=== PATIENT | male | born 1950 | race Caucasian/White ===

== ENCOUNTER 2020-02-22 13:26 | Emergency (ER) | payer MEDICARE, SELFPAY ==
[2020-02-22 13:39] VITALS: BP 143/83; PULSE 65; RESP 18; TEMP 36.9; O2SAT 95; BMI 37.5
--- NOTE | 2020-02-22 13:57 | XRR_ITS ---
PROCEDURE INFORMATION: Exam: XR Left Forearm Exam date and time: 02/22/2020 2:21 PM Age: 69 years old Clinical indication: Injury or trauma and screening exam; Injury history: Laceration to elbow with saw; Initial encounter; Arm, lower; Left; Possible fb; Injury date: 02/22/20; Injury details: Laceration fro saw TECHNIQUE: Imaging protocol: XR Left forearm. Views: 2 views. COMPARISON: CR Forearm LEFT [id number] 05/17/2015 8:25 AM FINDINGS: Bones/joints: Unremarkable negative for acute abnormality Soft tissues: There is large soft tissue laceration involving the proximal forearm XR/XR forearm LT 2V [id number] IMPRESSION: No acute bone abnormality. Is large soft tissue laceration proximal forearm
--- NOTE | 2020-02-22 14:13 | W.ED.WOUNDLC ---
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 Left a large gash was actively bleeding when I came in the room his last tetanus shot was about 2 years ago. Pressure bandage applied with 4 x 4's and Ori wrap to stop the bleeding. Onset (ago): minute(s) Extremity Location: Left: forearm Place: home Patient tetanus UTD: Yes Context: accidental Associated symptoms: Reports no associated symptoms; Denies chills, fever(s), nausea or vomiting Treatments prior to arrival: bandage Review of Systems Const: Denies: fever(s), chills, body aches, change in appetite, fatigue or malaise ENMT: Denies: throat pain, ear or mastoid pain, nasal discharge or nasal congestion Card: Denies: chest pain, edema, dyspnea on exertion or orthopnea Resp: Denies: dyspnea, productive cough or non-productive cough GI: Denies: abdominal pain, nausea, vomiting, hematemesis, coffee ground emesis, diarrhea, constipation, bloating, hematochezia or melena : Denies: flank pain, dysuria, urinary frequency or urinary urgency Skin/Breast: Denies: rash or pruritus PFS ED PFSH: Medical History History of CVA (cerebrovascular accident) Hyperlipidemia Hypertension Surgical History No history of previous surgery Physical Exam Const: COMMON NORMALS: average body habitus, patient oriented x3 and alert GENERAL APPEARANCE: cooperative, comfortable, well kempt and well developed NUTRITIONAL APPEARANCE: obese ORIENTATION/CONSCIOUSNESS: Yes awake, Yes oriented to person and Yes oriented to place HENMT: COMMON NORMALS: normocephalic and atraumatic HEAD & SCALP: normocephalic and atraumatic Eye: COMMON NORMALS: Equal, round and reactive pupils present, EOMs intact bilaterally, conjunctivae normal and no scleral icterus CONJUNCTIVA: Yes conjunctivae normal PUPIL: Yes Equal, round and reactive pupils present Neck/C-Spine: COMMON NORMALS: full ROM, no lymphadenopathy, supple, no meningeal signs and Thyroid normal THYROID: Thyroid normal and asymmetrical Lymph: LYMPHATIC: no lymphadenopathy noted Resp: COMMON NORMALS: normal respiratory effort, No retractions, No use of accessory muscles and clear to auscultation bilaterally AUSCULTATION: clear to auscultation bilaterally Cardio: COMMON NORMALS: regular rate and regular rhythm RATE: regular rate RHYTHM: regular rhythm HEART SOUNDS: no murmurs GI: COMMON NORMALS: Normal to inspection, nondistended, normoactive bowel sounds present, Soft to palpation and No hepatosplenomegaly present PALPATION: Yes Soft to palpation and Yes No hepatosplenomegaly present : COMMON NORMALS: Yes no CVA tenderness BLADDER/KIDNEY EXAM: Yes no CVA tenderness Back/Pelvis: COMMON NORMALS: no CVA tenderness LUMBAR SPINE/LOWER BACK: Yes normal to inspection Extremity: NARRATIVE EXTREMITY EXAM: Left forearm has a 6 inch open wound actively bleeding pressure bandage applied good control. No obvious foreign bodies there is a large amount of localized swelling however. Radial and ulnar pulses good sensation normal patient able to flex and extend fingers and hold against resistance in the left hand. Neuro: COMMON NORMALS: patient oriented x3 SENSORIUM/ORIENTATION: Yes alert, Yes oriented to person and Yes oriented to place MENINGEAL SIGNS: Yes no meningeal signs Psych: APPEARANCE: Yes well kempt Skin: COMMON NORMALS: no rashes or lesions noted and turgor normal GENERAL SKIN EXAM: no rashes or lesions noted and turgor normal Procedures Laceration Laceration 1: Site: upper extremity Side (If applicable): left Size (cm): 15 Description: linear Depth: simple, single layer Local Anesthetic: lidocaine 1% and with epi Amount of anesthesia used (mL): 8 Pre-repair: wound explored, irrigated extensively and deep structures intact Skin layer closed with: nylon Size (cm): other (1.0) Technique: running Course ED course: Extension at the wrist and extension of the fingers intact there is no evidence of involvement of the tendons. Wound irrigated extensively. There appears to be some superficial muscle layer involvement but the muscle is intact and functional. Wound closed with running suture 1-0 nylon patient tolerated procedure well. Wound care instructions given. Mupirocin recommended to be applied topically twice daily. Clindamycin prescribed. Due to an anomaly in the EMR it is not listed below in my prescriptions in this note however it was given. Review the discharge instructions that were signed by the patient will show the clindamycin was prescribed at the time of discharge see that note follow-up in 7 to 10 days for removal of sutures if there is any redness drainage or fever return immediately to the emergency room for evaluation. Vital Signs: Vital signs: Vital Signs Temperature 98.4 F 02/22/20 13:39 Pulse Rate 67 02/22/20 15:53 Respiratory Rate 18 02/22/20 15:53 Blood Pressure 155/72 02/22/20 15:53 Pulse Oximetry 96 02/22/20 15:53 Discharge Plan Discharge Patient Disposition: Home, Self-Care Clinical Impression: Laceration Condition: Stable Prescriptions: New mupirocin 2 % ointment 1 applic TOPICAL BID Qty: 22 RF: 0 No Action venlafaxine 75 mg capsule,extended release 24hr 75 mg PO DAILY RF: 0 atorvastatin 20 mg tablet 20 mg PO DAILY RF: 0 atenolol 100 mg tablet 100 mg PO DAILY RF: 0 clopidogrel 75 mg tablet 75 mg PO DAILY RF: 0 Aspir-81 81 mg Tablet,Delayed Release (Dr/Ec) 81 mg PO DAILY RF: 0 lisinopril-hydrochlorothiazide 20-25 mg tablet 1 tab PO BID RF: 0 Collagen Drink See Rx Instructions .ROUTE .COMPLEX RF: 0 Vitamin C 1 tab PO DAILY RF: 0 Discharge Orders: Discharge Order (Routine); Ordered 02/22/20 Ordered By: Parish Carvalho Referrals: Edna White, AUTOMATIC CAR WASH ATTENDANT [Primary Care Provider] - Discharge Diet: Advance as tolerated Discharge Activity: Increase activity as tolerated Activity Restrictions/Additional Instructions: Follow-up to recheck wound in 3 days with your primary care doctor for signs of infection return to the emergency room. If you notice that with passive range of motion meaning someone is moving your wrist for you that you have excessive pain return to the emergency room immediately. Discharge Date/Time: 02/22/20 15:56 Coding Level of Care Code ED Museum Service Scheduler for Moshe Lundberg Exam Comprehensive
[2020-02-22] MEDS: ceFAZolin 1,000 MG in sodium chloride 0.9% (plus) 50 ML 100 MG IV (14:57)
[2020-02-22 15:53] VITALS: BP 155/72; PULSE 67; RESP 18; O2SAT 96
== END 2020-02-22 15:56 | disposition home or self-care (01) ==
PROVIDERS: Emergency Provider Family Medicine; PCP Nurse Practitioner Primary Care
DX: S41.112A Laceration without foreign body of left upper arm, initial encounter (principal); W31.89XA Contact with other specified machinery, initial encounter; I10 Essential (primary) hypertension; E78.5 Hyperlipidemia, unspecified; Z86.73 Personal history of transient ischemic attack (TIA), and cerebral infarction without residual deficits
CPT/HCPCS: 12005; 12345; 73090; 96365; 96375; 99282; 99283; J0690; J2001

== ENCOUNTER 2022-03-19 17:50 | Emergency (ER) | payer MEDICARE, SELFPAY ==
[2022-03-19 18:38] LABS: Basophils # 0.1 10^3/uL (0.0-0.1); Basophils % 1.3 %; Eosinophils # 0.2 10^3/uL (0.0-0.8); Eosinophils % 2.5 %; Hematocrit 46.7 % (42.0-52.0); Hemoglobin 13.9 g/dL (11.7-16.6); Lymphocytes # 2.6 10^3/uL (0.8-4.8); Lymphocytes % 33.5 %; Mean Corpuscular HGB Conc 29.8 g/dL (30.0-36.0); Mean Corpuscular Hemoglobin 25.8 pg (28.0-34.0); Mean Corpuscular Volume 86.6 fl (80-94); Mean Platelet Volume 10.2 fL (7.4-10.4); Monocytes # 0.6 10^3/uL (0.2-0.9); Monocytes % 7.8 %; Neutrophils # 4.29 10^3/uL (1.8-7.7); Neutrophils % 54.6 %; Nucleated Red Blood Cells % 0 %; Platelet Count 309 10^3/cmm (130-400); Red Blood Count 5.39 10^6/uL (4.1-5.3); Red Cell Distribution Width 13.7 % (12.1-15.1); White Blood Count 7.9 10^3/uL (4.0-10.0)
[2022-03-19 18:48] VITALS: TEMP 36.9; BMI 36.0
[2022-03-19 18:58] LABS: Alanine Aminotransferase 31 U/L (0-41); Albumin Level 4.2 g/dL (3.5-5.2); Alkaline Phosphatase 109 IU/L (40-130); Anion Gap 10.2 (5-19); Aspartate Amino Transferase 26 U/L (0-40); Blood Urea Nitrogen 25 mg/dL (8-23); Calcium 9.2 mg/dL (8.5-10.5); Carbon Dioxide 35 mmol/L (22-29); Chloride 100 mmol/L (98-107); Creatinine Clr Calc Pharmacy 76.8687; Globulin 2.9 g/dL (1.3-4.6); Glucose 110 mg/dL (65-115); Osmolality Calculated 297 mOsm/kg (285-295); Potassium 4.2 mmol/L (3.5-5.1); Sodium 141 mmol/L (136-145); Total Bilirubin 0.4 mg/dL (0.15-1.2); Total Protein 7.1 g/dL (6.6-8.7)
[2022-03-19 21:31] LABS: Add Urine Microscopic? YES; Bilirubin Urine Neg (Negative); Blood Urine 3+ (Negative); Glucose Urine UA Norm (Normal); Ketones Urine Negative (Negative); Leukocyte Esterase Urine Trace (Negative); Nitrate Urine Positive (Negative); Protein Urine 1+ (Negative); Urine Appearance Cloudy (CLEAR); Urine Color Yellow (Yellow); Urobilinogen Urine 1 mg/dL (Negative); pH Urine 6 (5-7)
[2022-03-19 21:32] LABS: Add Urine Culture? Yes; Bacteria Urine 2+ /hpf; RBC Urine TOO NUMEROUS TO CNT /hpf (0-2); Squamous Epithelial Cell Urine 0-4 /hpf (0-5); WBC Urine 25-40 /hpf (0-5)
== END 2022-03-19 22:39 | disposition left against medical advice (07) ==
PROVIDERS: Physician Assistant; Emergency Provider Family Medicine; PCP Nurse Practitioner Primary Care
DX: Z53.21 Procedure and treatment not carried out due to patient leaving prior to being seen by health care provider (principal)
CPT/HCPCS: 36415; 80053; 81001; 85025; 87077; 87086; 87186

== ENCOUNTER 2022-03-20 10:57 | Emergency (ER) | payer MEDICARE, SELFPAY ==
[2022-03-20 11:04] VITALS: BP 191/117; PULSE 75; RESP 16; TEMP 36.3; O2SAT 97
--- NOTE | 2022-03-20 11:27 | W.ED.MALEGU ---
HPI - Male Genitourinary General: Chief complaint: Urogenital-Male Stated complaint: urinating blood, weakness Time Seen by Provider: 03/20/22 10:59 Source: patient Mode of arrival: ambulatory Limitations: no limitations History of Present Illness: Patient is a 71-year-old male who presents to ED today with a complaint of hematuria with clots. Patient states symptoms have been intermittent and present over the past 6 months. Patient states he has been treated with antibiotics twice for possible infections and states this does help temporarily but the bleeding always returns. Looking at old documentation it looks like patient had a renal US performed on 12/2020 for complaints of hematuria. Patient states approximately 12 years ago he had some type of benign growth removed from his bladder by urologist in [place]. He states he has a history of a right atrophic kidney. He does complain of some mild pain about his right flank. Patient is not running fevers. He does complain of some slight dysuria. No difficulty starting a stream or urinary retention. Denies abdominal pain. Patient was checked into ED yesterday and had CBC, CMP, and UA performed from waiting room but left due to lengthy wait times. MD Complaint: other (hematuria) Duration: intermittent Location: penis and right flank Associated symptoms: Reports dysuria and hematuria; Deny nausea or vomiting Review of Systems Const: Denies: fever(s), chills, body aches, fatigue or malaise Card: Denies: chest pain Resp: Denies: dyspnea GI: Denies: abdominal pain, nausea, vomiting, diarrhea or change in bowel habits : Reports: flank pain, dysuria and hematuria; Denies: difficulty urinating, urinary frequency, urinary urgency, urinary hesitancy, change in urine stream, genital pain, genital lesions, penile discharge, testicular pain or scrotal swelling Musc: Denies: neck pain, back pain, extremity pain or joint pain Skin/Breast: Denies: rash Neuro: Denies: headache(s), numbness in extremities, weakness in extremities or sensory changes [facility] ED PFSH: Medical History History of CVA (cerebrovascular accident) Hyperlipidemia Hypertension Surgical History No history of previous surgery Physical Exam Const: COMMON NORMALS: no acute distress, patient oriented x3, no limitations and alert GENERAL APPEARANCE: cooperative NUTRITIONAL APPEARANCE: obese ORIENTATION/CONSCIOUSNESS: Yes awake, Yes oriented to person, Yes oriented to place and Yes oriented to time HENMT: COMMON NORMALS: normocephalic and atraumatic HEAD & SCALP: normal to inspection, normocephalic and atraumatic Resp: COMMON NORMALS: normal respiratory effort and clear to auscultation bilaterally AUSCULTATION: clear to auscultation bilaterally Cardio: COMMON NORMALS: regular rate and regular rhythm RATE: regular rate RHYTHM: regular rhythm GI: COMMON NORMALS: Normal to inspection, nondistended, normoactive bowel sounds present, Soft to palpation, non-tender and no masses INSPECTION: Yes scar AUSCULTATION: Yes normoactive bowel sounds PALPATION: Yes Soft to palpation, No Tenderness to palpation present (GI), No Guarding due to palpation present (GI) and No Rigid due to palpation : COMMON NORMALS: Yes no CVA tenderness BLADDER/KIDNEY EXAM: Yes no CVA tenderness PENIS: normal penis MEATUS: meatus normal SCROTUM: Yes testes descended bilaterally TESTES: Yes testicular lie normal OTHER: pt reports some mild pain about his R flank but this is not reproducible on exam Back/Pelvis: COMMON NORMALS: no CVA tenderness, thoracic and lumbar spine normal to inspection, no thoracic nor lumbar tenderness and thoraco-lumbar ROM normal Extremity: GENERAL: Yes normal exam except as noted Neuro: CAIN COMA SCALE: document GCS findings Cain coma scale eye opening: Spontaneous Tyler coma scale verbal response: Orientated Tyler coma scale motor response: Obey commands Cain coma scale total score: 15 COMMON NORMALS: patient oriented x3, moves all extremities, no focal motor deficits, no sensory deficits noted and gait normal SENSORIUM/ORIENTATION: Yes alert, Yes oriented to person, Yes oriented to place and Yes oriented to time Skin: COMMON NORMALS: no rashes or lesions noted GENERAL SKIN EXAM: no rashes or lesions noted Course ED course: CBC, CMP, and UA from yesterday reviewed. UA culture is pending-verified by lab. These do not need to be repeated on today's visit. Vital Signs: Vital signs: Vital Signs Temperature 97.3 F L 03/20/22 11:04 Pulse Rate 65 03/20/22 13:36 Respiratory Rate 14 03/20/22 12:39 Blood Pressure 163/89 03/20/22 13:36 Pulse Oximetry 97 03/20/22 13:36 Oxygen Delivery Me thod 03/20/22 13:06 MDM - Male Medical Decision Making Patient is a nice 71-year-old male here for complaints of hematuria that has been intermittent over the past 6 months but possibly even longer as he had an ultrasound on 12/2020 for complaints of hematuria. Patient had checked into the ED yesterday but subsequently left secondary to lengthy wait times. His CBC, CMP, and UA from yesterday were reviewed and I do not feel like need to be repeated today. Patient's hemoglobin was normal. He has a normal creatinine. UA did show hematuria along with nitrates, trace leuks, and WBCs. Patient just finished a 3 wk course of cefuroxime for possible UTI. He states he has been on abx even before that as well. Lab still had patient's urine from yesterday and is running a culture on it-I think we will delay further abx until this returns. CT scan showing diffuse bladder wall thickening, an enlarged nodular prostatem and a small exophytic diverticulum radiologist stated could be the source of patient's hematuria. Ultimately patient needs a cystoscopy by urology. I have placed a referral for Dr. Lawler. She was noted to be very hypertensive during his stay. He states this is secondary to white coat syndrome . He states at home his blood pressure is normally fairly controlled (roughly 150s/70s) and takes it regularly. Told him I would like him to monitor this closely and follow up with PCP if it continues to run high especially given his atrophic R kidney (worsening as it was no longer even visualized on CT imaging). Lab Data Radiology Impressions Abdomen/Pelvis CT 03/20/22 11:28 IMPRESSION: 1. No hydronephrosis in the LEFT kidney. LEFT ureter is decompressed. No obstructing LEFT renal or ureteral calculi. 2. Mild diffuse bladder wall thickening can be seen with chronic cystitis or bladder outlet obstruction. 3. Enlarged nodular prostate measuring 5.0x3.6 x 4.8 cm correlation PSA. Thickening of the seminal vesicles with enlarged lobulated RIGHT seminal vesicle or lymph node measuring 2.5 CM. 4. Small exophytic diverticulum along the dome of the bladder measuring 9 mm with slight surrounding induration and may be the source of patient's hematuria. This can be further evaluated with cystoscopy. 5. RIGHT kidney is not present either congenital or surgically absent. Attempted notification SERENA Gray at 03/20/2022 12:44 PM. Discharge Plan Discharge Patient Disposition: Home Clinical Impression: Bladder diverticulum, Hypertension Hematuria Qualifiers: Hematuria type: gross Qualified Code(s): R31.0 - Gross hematuria Condition: Stable Prescriptions: No Action atorvastatin 20 mg tablet 20 mg PO DAILY atenolol 100 mg tablet 100 mg PO DAILY clopidogrel 75 mg tablet 75 mg PO DAILY lisinopril-hydrochlorothiazide 20-25 mg tablet 1 tab PO BID Collagen Drink See Rx Instructions .ROUTE .COMPLEX Rx Instructions: as directed daily mupirocin 2 % ointment 1 applic TOPICAL BID Qty: 22 0RF buspirone 5 mg tablet 5 mg PO BID Vitamin C 1,000 mg Tablet 1,000 mg PO DAILY venlafaxine 150 mg Tablet Extended Release 24 Hr 150 mg PO DAILY Fish Oil 120-180-500 mg Capsule 1 cap PO DAILY aspirin 81 mg Capsule 81 mg PO DAILY Discharge Orders: Discharge ED (Routine); Ordered 03/20/22 Ordered By: Janna Leonard Referrals: Edna White FNP [Primary Care Provider] - Brandon Lawler MD [Physician] - Coding Level of Care Code ED Gaming Table Operator for Chg Fwd Exam Comprehensive
--- NOTE | 2022-03-20 11:28 | CT_ITS ---
WS: [id number] CT ABDOMEN PELVIS TECHNIQUE: Noncontrast CT of the abdomen and pelvis with coronal and sagittal reformatted images. CLINICAL INFORMATION: hematuria, passing clots COMPARISON: Ultrasound January 03, 2021 DLP: 1013.[address] scans at [facility] use at least one of these dose optimization techniques: automated e xposure control; mA and/or kV adjustment per patient size (includes targeted exams where dose is matc hed to clinical indication); or iterative reconstruction. FINDINGS:Small exophytic diverticulum along the dome of the bladder measuring 9 mm with slight surrou nding induration and may be the source of patient's hematuria. This can be further evaluated with cys toscopy. Diffuse bladder wall thickening can be seen with chronic cystitis or bladder outlet obstruction. Hete rogeneous nodular prostate enlargement measuring 3.6 x 5.0 x 4.8 cm Correlation PSA. Thickening of the seminal vesicles bilaterally. Lobulated RIGHT seminal vesicle or l ymph node measuring 2.5 cm. Tiny LEFT adrenal adenoma measuring 8 mm. Normal RIGHT adrenal gland. Prior RIGHT nephrectomy or yuridia enital absence RIGHT kidney. No visualized surgical clips. LEFT ureter is normal. No obstructing LEF T renal or ureteral calculi. Normal sigmoid colon. No evidence of high-grade small or large bowel obstruction. Prior appendectomy. Noncontrast liver is normal. Cholecystectomy clips. Normal GE junction. Splenic granulomas. Normal ca liber abdominal aorta. Small incidental fat-containing inguinal hernias. Disc space narrowing worse L5-S1. Chronic RIGHT rib fractures with callus formation.Calcified granulo mas RIGHT lower lobe. Calcified RIGHT hilar lymph nodes. Lung bases are well aerated. CT/CT kidney stone [id number] IMPRESSION: 1. No hydronephrosis in the LEFT kidney. LEFT ureter is decompressed. No obstr ucting LEFT renal or ureteral calculi. 2. Mild diffuse bladder wall thickening can be seen with chronic cystitis or b ladder outlet obstruction. 3. Enlarged nodular prostate measuring 5.0x3.6 x 4.8 cm correlation PSA. Thick ening of the seminal vesicles with enlarged lobulated RIGHT seminal vesicle or lymph node measuring 2.5 CM. 4. Small exophytic diverticulum along the dome of the bladder measuring 9 mm w ith slight surrounding induration and may be the source of patient's hematuria. This can be further evaluated with cystoscopy. 5. RIGHT kidney is not present either congenital or surgically absent. Attempted notification SERENA Gray at 03/20/2022 12:44 PM.
[2022-03-20 11:49] VITALS: BP 199/116; PULSE 63; RESP 16; O2SAT 98
[2022-03-20] MEDS: hyDRALAzine 25 mg Tablet PO (12:03)
[2022-03-20 12:39] VITALS: BP 200/107; PULSE 64; RESP 14; O2SAT 98
[2022-03-20 13:06] VITALS: BP 204/102; PULSE 64; O2SAT 97
[2022-03-20 13:36] VITALS: BP 163/89; PULSE 65; O2SAT 97
--- NOTE | 2022-03-21 10:47 | DCPLANNER ---
Addendum entered by Kelly Kiran 04/08/22 16:42: Patient had a follow up appointment scheduled with urology - patient did attend appointment. Addendum entered by Kelly Kiran 03/27/22 15:02: Patient has a follow up appointment scheduled for Thursday, April 02, 2022 at 3:30 with urology. Clinic will call patient with appointment information. Original Note: area sales manager had message to schedule a follow up appointment for patient with urology. area sales manager sent patients information to the front office staff at urology. Patients information will be printed and reviewed. Clinic will call patient with appointment.
== END 2022-03-20 13:43 | disposition home or self-care (01) ==
PROVIDERS: Emergency Provider Physician Assistant; PCP Nurse Practitioner Primary Care
DX: R31.0 Gross hematuria (principal); N32.3 Diverticulum of bladder; I10 Essential (primary) hypertension; Z79.82 Long term (current) use of aspirin; Z79.02 Long term (current) use of antithrombotics/antiplatelets; E78.5 Hyperlipidemia, unspecified; Z86.73 Personal history of transient ischemic attack (TIA), and cerebral infarction without residual deficits
CPT/HCPCS: 74176; 99284

== ENCOUNTER → 2022-04-02 15:20 | Outpatient (BNVA) | payer MEDICARE, SELFPAY | PROVIDERS: PCP Nurse Practitioner Primary Care; Visit Provider Nurse Practitioner Family | DX: R31.0 Gross hematuria (principal); R33.9 Retention of urine, unspecified | CPT/HCPCS: 51741; 51798; 81003; 87077; 87086; 87186; 88112; 99203 ==

== ENCOUNTER → 2022-04-18 08:14 | Outpatient (BNVA) | payer MEDICARE, SELFPAY | PROVIDERS: PCP Nurse Practitioner Primary Care; Visit Provider Urology | DX: N40.1 Benign prostatic hyperplasia with lower urinary tract symptoms (principal); R31.0 Gross hematuria; Z87.440 Personal history of urinary (tract) infections | CPT/HCPCS: 52000; 99214 ==

== ENCOUNTER 2023-07-08 08:32 | Outpatient (CLI) | payer MEDICARE, SELFPAY ==
[2023-07-08 08:40] VITALS: BMI 36.1
--- NOTE | 2023-07-08 10:45 | SUR.PREOP ---
PRE STRESS NOTE RECEIVED PATIENT FROM [facility]UCLE[facility] MEDICINE FOR STRESS TEST. PATIENT PLACED ON TELEMETRY IN ANTICIPATION OF STRESS TEST. HEART RATE IS CURRENTLY 162 BPM. RHYTHM IS ABNORMAL AND APPEARS TO BE ATRIAL FIBRILLATION. PATIENT STATES HE HAS NEVER BEEN TOLD HE HAS A FIB AND IS NOT ON ANY PROPHYLAXIS THAT I CAN SEE FROM HIS MEDICATION HISTORY. THE PATIENT IS ON ASPIRIN DAILY BUT NOT WARFARIN OR ELIQUIS. DR HOLCOMB NOTIFIED OF FINDINGS AND HE STATES TO SEND THE PATIENT TO THE EMERGENCY ROOM. PATIENT IS AGREEABLE TO TREATMENT. IV LEFT IN PLACE THE ER WILL LIKELY USE THE ACCESS. REPORTED OFF TO DISTRIBUTION CLERK. PATIENT TRANSPORTED TO ER TRIAGE VIA WHEELCHAIR. CONDITION STABLE.
== END 2023-07-08 08:33 | disposition home or self-care (01) ==
PROVIDERS: PCP Nurse Practitioner Family; Visit Provider Nurse Practitioner Family
DX: R07.9 Chest pain, unspecified (principal)
CPT/HCPCS: 36415

== ENCOUNTER 2023-07-08 11:02 | Observation (INO) | payer MEDICARE, SELFPAY ==
--- NOTE | 2023-07-08 11:05 | XRR_ITS ---
PROCEDURE INFORMATION: Exam: XR Chest Exam date and time: 07/08/2023 11:26 AM Age: 73 years old Clinical indication: Pain; Angina pectoris; Additional info: Cxp TECHNIQUE: Imaging protocol: Radiologic exam of the chest. Views: 1 view. COMPARISON: CT kidney stone [id number] 03/20/2022 12:24 PM FINDINGS: Lungs: Unremarkable. No consolidation. Pleural spaces: Unremarkable. No pleural effusion. No pneumothorax. Heart/Mediastinum: Unremarkable. No cardiomegaly. Bones/joints: Unremarkable. XR/XR chest 1V portable [id number] IMPRESSION: No acute findings.
--- NOTE | 2023-07-08 11:08 | ECG_ITS ---
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 Measurements Intervals [place] Rate: 102 P: 32 VA: 146 QRS: 1 QRSD: 82 T: 66 QT: 321 QTc: 418 Interpretive Statements SINUS TACHYCARDIA NONSPECIFIC ST & T-WAVE ABNORMALITY ABNORMAL RHYTHM ECG Compared to ECG 06/23/2015 15:11:35 No significant change Electronically Signed On 07-09-2023 13:20:13 APPLICATIONS SUPPORT ENGINEER by Oneida Fuentes M.D. [email or web address]
[2023-07-08] MEDS: aspirin 81 mg Chew Tablet 324 MG PO (11:12)
[2023-07-08 11:14] VITALS: BP 151/107; PULSE 113; RESP 18; TEMP 36.8; O2SAT 98; BMI 36.1
--- NOTE | 2023-07-08 11:33 | ED_ITS ---
HPI - Chest Pain General: Chief Complaint: Chest Pain Stated Complaint: Chest pains Time Seen by Provider: 07/08/23 11:05 History of Present Illness: 73-year-old male presents emergency department with complaints of substernal chest pain. He states he has had increased shortness of breath. He states he was initially having a evaluation and stress test earlier today when he suddenly became very short of breath with 10 out of 10 chest pain and per the stress lab staff started having atrial fibrillation with rapid ventricular response. He states he did initially feel nauseated. He states he has had intermittent exertional angina for quite some time. He states his current chest discomfort is a 4 out of 10. Associated symptoms: Reports dyspnea, nausea and palpitations Review of Systems General: Reports: 10 or more systems reviewed and unremarkable except in HPI and below Card: Reports: chest pain, palpitations and irregular heart rhythm Resp: Reports: dyspnea GI: Reports: nausea [facility] ED PFSH: Medical History (Updated 07/11/23 @ 19:51 by Dani Warner MD) BPH loc w urin obs/LUTS History of CVA (cerebrovascular accident) History of recurrent UTI (urinary tract infection) Hyperlipidemia Hypertension Testosterone deficiency Surgical History History of ankle surgery History of bladder surgery History of right shoulder replacement Family History Father , at age 63 CAD (coronary artery disease) Diabetes Mother , at age 85 CAD (coronary artery disease) Social History Smoking and tobacco/nicotine status: former use of tobacco/nicotine (Chew tobacco) Alcohol intake: never Household members: spouse Marital status: Current occupational status: employed and retired Physical Exam Narrative: EXAM NARRATIVE: Constitutional: the patient appears well nourished and with normal development. Vital signs reviewed as documented. HENMT: Normocephalic, atraumatic. Extermal ears with normal appearance without drainage. Nose without drainage, normal appearance. Mucus membranes moist. Neck is supple, No jugular venous distension, trachea is midline, no appreciable carotid bruits. No lymphadenopathy. No meningeal signs. Flexion, extension and lateral rotation is without pain. Eyes: Pupils are equal, round, reactive to light and accommodation. No scleral icterus. Extra-ocular movement are intact. Thorax is symmetrical and with equal rise and fall with respirations. Resp: Lungs are clear to auscultation. No wheezes, rales, crackles or ronchi at present. Cardio: Regular rate and rhythm. Positive S1, S2. No appreciable murmurs, rubs or gallops. GI: Abdominal exam reveals normal bowel sounds to all quadrants. No organomegaly. No obvious palpable masses noted. No hepatomegally appreciated. Soft, nontender to palpation. Extremity: Extremities are non-edematous and both femoral and pedal pulses are 2+ and equal bilaterally. Moves all extremities well, sensation in all extre mities. Neuro: Alert and oriented x4, person, place, time and situation. Cranial nerves II through XII are grossly intact, there is no focal neurological deficits that I can appreciate at present. Motor strength in the upper and lower extremities are equal and bilateral 5/5. Psych: Cooperative, calm, normal thought process, appropriate judgment. Skin: No lesions, rashes. No gross abnormalities noted. Back: Symmetrical, no obvious deformity, No CVA tenderness Course Vital Signs: Vital signs: Vital Signs Temperature 98.7 F 07/10/23 13:05 Pulse Rate 62 07/10/23 13:05 Respiratory Rate 18 07/10/23 13:05 Blood Pressure 165/111 07/10/23 13:05 Pulse Oximetry 100 07/10/23 13:05 Oxygen Delivery Me thod Room Air 07/10/23 12:00 MDM - Chest Pain Medical Decision Making Physical exam completed and documented, I will obtain cardiac enzyme as well as twelve-lead EKG chest x-ray CBC CMP and provide the patient cardiac dose aspirin as well as consult the hospitalist and cardiology for possible admission of the patient. Medical Records I reviewed the patient's medical records. Lab Data I reviewed the patient's lab results. 07/10/23 03:50 07/10/23 03:50 Radiology Impressions Chest X-Ray 07/08/23 11:05 IMPRESSION: No acute findings. Laboratory Results WBC 7.09 10^3/uL (3.29-11.43) 07/08/23 11: RBC 4.97 10^6/uL (3.85-5.65) 07/08/23 11:22 Hgb 9.10 g/dL (11.27-16.99) L 07/08/23 11:22 Hct 35.0 % (37-53) L 07/08/23 11:22 MCV 70.4 fl (82-101) L 07/08/23 11:22 MCH 18.3 pg (27-33) L 07/08/23 11:22 MCHC 26.0 g/dL (30-55) L 07/08/23 11:22 RDW 19.3 % (12.1-15.1) H 07/08/23 11:22 Plt Count 292 10^3/cmm (157-399) 07/08/23 11:22 MPV 9.7 fL (7.4-10.4) 07/08/23 11:22 Neut % (Auto) 57.2 % 07/08/23 11:22 Lymph % (Auto) 33.1 % 07/08/23 11:22 [place] % (Auto) 7.3 % 07/08/23 11:22 Eos % (Auto) 1.0 % 07/08/23 11:22 Baso % (Auto) 1.0 % 07/08/23 11:22 Neut # (Auto) 4.05 10^3/uL (1.8-7.7) 07/08/23 11:22 Lymph # (Auto) 2.4 10^3/uL (0.8-4.8) 07/08/23 11:22 [place] # (Auto) 0.5 10^3/uL (0.2-0.9) 07/08/23 11:22 Eos # (Auto) 0.1 10^3/uL (0.0-0.8) 07/08/23 11:22 Baso # (Auto) 0.1 10^3/uL (0.0-0.1) 07/08/23 11:22 Nucleated RBC % (auto) 0 % 07/08/23 11: Nucleated RBCs # 0.0 /100WBC 07/08/23 11: PT 13.10 SECONDS (12.1-14.9) 07/08/23 11:22 INR 0.96 (0.8-1.2) 07/08/23 11:22 APTT 25.8 SECONDS (23.9-36.7) 07/08/23 11:22 D-Dimer 0.43 ug/mLFEU (0-0.59) 07/08/23 11:22 Sodium 139 mmol/L (136-145) 07/08/23 11:22 Potassium 4.3 mmol/L (3.5-5.1) 07/08/23 11:22 Chloride 102 mmol/L (98-107) 07/08/23 11:22 Carbon Dioxide 24 mmol/L (22-29) 07/08/23 11:22 Anion Gap 17.3 (5-19) 07/08/23 11:22 BUN 14 mg/dL (8-23) 07/08/23 11:22 Creatinine 1.0 mg/dL (0.7-1.2) 07/08/23 11:22 GFR Calculation Not Reportable 07/08/23 11:22 Glucose 125 mg/dL (65-115) H 07/08/23 11:22 Estimat Average Glucose 128 07/08/23 11:22 Hemoglobin A1c 6.1 % (4.0-6.0) H 07/08/23 11:22 Calculated Osmolality 290 mOsm/kg (285-295) 07/08/23 11:22 Calcium 8.9 mg/dL (8.5-10.5) 07/08/23 11:22 Total Bilirubin 0.4 mg/dL (0.15-1.2) 07/08/23 11:22 AST 17 U/L (0-40) 07/08/23 11:22 ALT 18 U/L (0-41) 07/08/23 11:22 Alkaline Phosphatase 100 U/L (40-130) 07/08/23 11:22 Troponin T Baseline 16 ng/L (0-15) H 07/08/23 11:22 Troponin T 120 Minute 22.92 ng/L (0-15) H 07/08/23 13:28 Delta Troponin T 6.92 ABS# (0-10) 07/08/23 13:28 NT-Pro-B Natriuret Pep 359 pg/mL (0-125) H 07/08/23 11:22 Total Protein 6.7 g/dL (6.6-8.7) 07/08/23 11:22 Albumin 4.1 g/dL (3.5-5.2) 07/08/23 11: Globulin 2.6 g/dL (1.3-4.6) 07/08/23 11:22 Urine Color Colorless (Yellow) 07/08/23 12:10 Urine Appearance Clear (CLEAR) 07/08/23 12:10 Urine pH 7 (5-7) 07/08/23 12:10 Ur Specific [place] 1.010 (1.005-1.030) 07/08/23 12:10 Urine Protein Neg (Negative) 07/08/23 12:10 Urine Glucose (UA) Norm (Normal) 07/08/23 12:10 Urine Ketones Negative (Negative) 07/08/23 12:10 Urine Blood Neg (Negative) 07/08/23 12:10 Urine Nitrate Negative (Negative) 07/08/23 12:10 Urine Bilirubin Neg (Negative) 07/08/23 12:10 Urine Urobilinogen Norm mg/dL (Negative) 07/08/23 12:10 Ur Leukocyte Esterase Negative (Negative) 07/08/23 12:10 Blood Type A Positive 07/08/23 13:28 Rho(D) Type Rh positive 07/08/23 13:28 Antibody Screen Negative 07/08/23 13:28 Crossmatch See Detail 07/08/23 13:28 All radiology interpretation(s) finalized by discharge Discharge Plan Discharge Patient Disposition: Admitted As Inpatient Admit Provider: Lenin Calderon Clinical Impression: Stable angina, Anemia Condition: Stable Discharge Diet: Cardiac Discharge Activity: Limit activity as instructed Coding Level of Care Code ED Car Barn Laborer for Moshe Lundberg
[2023-07-08 11:36] LABS: Basophils # 0.1 10^3/uL (0.0-0.1); Eosinophils # 0.1 10^3/uL (0.0-0.8); Lymphocytes # 2.4 10^3/uL (0.8-4.8); Lymphocytes % 33.1 %; Mean Corpuscular Hemoglobin 18.3 pg (27-33); Mean Corpuscular Volume 70.4 fl (82-101); Mean Platelet Volume 9.7 fL (7.4-10.4); Monocytes # 0.5 10^3/uL (0.2-0.9); Monocytes % 7.3 %; Neutrophils # 4.05 10^3/uL (1.8-7.7); Neutrophils % 57.2 %; Nucleated Red Blood Cells % 0 %; Platelet Count 292 10^3/cmm (157-399); Red Blood Count 4.97 10^6/uL (3.85-5.65); Red Cell Distribution Width 19.3 % (12.1-15.1); White Blood Count 7.09 10^3/uL (3.29-11.43)
[2023-07-08 11:46] LABS: INR 0.96 (0.8-1.2)
[2023-07-08 11:47] LABS: Partial Thromboplastin Time 25.8 SECONDS (23.9-36.7)
[2023-07-08 11:53] LABS: Troponin(5th) Baseline 16 ng/L (0-15)
[2023-07-08 12:10] LABS: Alanine Aminotransferase 18 U/L (0-41); Albumin Level 4.1 g/dL (3.5-5.2); Alkaline Phosphatase 100 U/L (40-130); Anion Gap 17.3 (5-19); Aspartate Amino Transferase 17 U/L (0-40); Blood Urea Nitrogen 14 mg/dL (8-23); Calcium 8.9 mg/dL (8.5-10.5); Carbon Dioxide 24 mmol/L (22-29); Chloride 102 mmol/L (98-107); Globulin 2.6 g/dL (1.3-4.6); Glucose 125 mg/dL (65-115); NT Pro B Type Natriuretic Pept 359 pg/mL (0-125); Osmolality Calculated 290 mOsm/kg (285-295); Potassium 4.3 mmol/L (3.5-5.1); Sodium 139 mmol/L (136-145); Total Bilirubin 0.4 mg/dL (0.15-1.2); Total Protein 6.7 g/dL (6.6-8.7)
--- NOTE | 2023-07-08 13:05 | ECG_ITS ---
[facility] Test Date: 2023-07-08 Pat Name: Edi Chawla Department: Room: Gender: Male Composition Worker: : 1950 Requested By: Dani Warner Order Number: [id number] MD: Oneida Fuentes M.D. Measurements Intervals [place] Rate: 91 P: 41 ME: 150 QRS: -5 QRSD: 78 T: 50 QT: 347 QTc: 429 Interpretive Statements SINUS RHYTHM POSSIBLE RIGHT VENTRICULAR CONDUCTION DELAY [RSR (QR) IN V1/V2] Compared to ECG 07/08/2023 11:08:48 Sinus tachycardia no longer present Electronically Signed On 07-09-2023 13:35:39 CAREER TRANSITION SPECIALIST by Oneida Fuentes M.D. [id number]
[2023-07-08 13:59] LABS: Troponin 5 2HR 22.92 ng/L (0-15)
[2023-07-08 14:00] LABS: Troponin 5 2HR Delta 6.92 ABS# (0-10)
--- NOTE | 2023-07-08 14:50 | PC.NURSE ---
Tried to call report to CSU and room 108 is dirty and the nurse is tied up giving up report to someone else.
[2023-07-08 15:08] LABS: D Dimer 0.43 ug/mLFEU (0-0.59)
--- NOTE | 2023-07-08 15:34 | P.HP_ITS ---
Providers/Chief Complaint Admitting Physician: Lenin Calderon Primary Care Provider: SANTHOSH Lr Chief Complaint: Chest pains History of Present Illness 73-year-old gentleman with history of CVA, on aspirin and Plavix, hypertension, states that blood pressure at home is usually controlled, anemia has been having exertional angina which was initially thought to be secondary to anemia, underwent upper and lower endoscopy with some polyp removal, however, with persistent exertional angina was referred for assessment by stress testing. States has had chest pain with walking/exertion prior to stress test as well as developed chest pain during stress test necessitating discontinuation of the procedure. Was referred for assessment to the ER. He reports chest pain is not related to inspiration, over the front of his chest radiating to his neck and arms. Severe at that time, so far improved, but persistent. Received aspirin in ER. Denies past history of known CAD or [place], never had a stress test prior to this one. He chews tobacco, occasional/rare cigarette. States on follow-up with his primary provider cholesterol has been well-controlled. Review of Systems Const: Denies: fever(s), chills, body aches or malaise ENMT: Denies: throat pain Card: Reports: chest pain; Denies: edema or pre-syncope Resp: Denies: dyspnea, productive cough, change in phlegm color or hemoptysis GI: Denies: abdominal pain, nausea, vomiting, diarrhea, constipation, hematochezia or melena : Denies: flank pain, difficulty urinating, urinary frequency or hematuria Musc: Denies: back pain, joint swelling or joint redness Skin/Breast: Denies: rash or new lesions Neuro: Denies: headache(s), numbness in extremities, weakness in extremities, dizziness, confusion or seizure-like activity Medications/Allergies Home Medications Medication Instructions Recorded Confirmed Last Taken Type atenolol 100 mg tablet 100 mg PO DAILY 02/22/20 07/08/23 07/07/23 History atorvastatin 20 mg tablet 20 mg PO DAILY 02/22/20 07/08/23 07/07/23 History clopidogrel 75 mg tablet 75 mg PO DAILY 02/22/20 07/08/23 07/07/23 History lisinopril 20 1 tab PO BID 02/22/20 07/08/23 07/07/23 History mg-hydrochlorothiazide 25 mg tablet ascorbic acid (vitamin C) 1,000 mg 1,000 mg PO DAILY 03/20/22 07/08/23 07/07/23 History tablet (Vitamin C) aspirin 81 mg capsule 81 mg PO DAILY 03/20/22 07/08/23 07/07/23 History buspirone 5 mg tablet 5 mg PO BID 03/20/22 07/08/23 07/08/23 History omega 4-irg-vbm-fish oil 120 1 cap PO DAILY 03/20/22 07/08/23 07/07/23 History mg-180 mg-500 mg capsule (Fish Oil) venlafaxine 150 mg tablet,extended 150 mg PO DAILY 03/20/22 07/08/23 07/08/23 History release 24 hr tamsulosin 0.4 mg capsule 0.4 mg PO DAILY #90 caps 04/18/22 07/08/23 07/08/23 Rx Allergies Allergy/AdvReac Type Severity Reaction Status Date / Time celecoxib [From Celebrex] Allergy ADR-Hyperte Verified 07/08/23 11:16 nsion Penicillins Allergy ALGY-Swell Verified 07/08/23 11:16 Lip/Tongue/Throat PFSH Acute PFSH: Medical History BPH loc w urin obs/LUTS History of CVA (cerebrovascular accident) History of recurrent UTI (urinary tract infection) Hyperlipidemia Hypertension Surgical History History of ankle surgery History of bladder surgery History of right shoulder replacement Family History Father , at age 63 CAD (coronary artery disease) Diabetes Mother , at age 85 CAD (coronary artery disease) Social History Smoking and tobacco/nicotine status: former use of tobacco/nicotine (Chew tobacco) Alcohol intake: never Household members: spouse Marital status: Current occupational status: employed and retired Vitals/I&O/Wt Last Vital Signs Temp 98.3 F 07/08/23 11:14 Pulse 113 H 07/08/23 11:14 Resp 18 07/08/23 11:14 BP 151/107 07/08/23 11:14 Pulse Ox 98 07/08/23 11:14 O2 Del Method Room Air 07/08/23 11:14 Weight last 48 hrs Weight 104.78 kg Physical Exam Narrative: Accompanied by family. Const: COMMON NORMALS: patient oriented x3 and alert GENERAL APPEARANCE: cooperative NUTRITIONAL APPEARANCE: obese ORIENTATION/CONSCIOUSNESS: Yes awake HENMT: COMMON NORMALS: oropharynx normal Neck/C-Spine: COMMON NORMALS: no JVD Resp: COMMON NORMALS: normal respiratory effort and clear to auscultation bilaterally AUSCULTATION: clear to auscultation bilaterally Cardio: COMMON NORMALS: no JVD, regular rhythm, S1 normal heart sound present, S2 normal heart sound present and No murmurs present (Cardio) RHYTHM: regular rhythm HEART SOUNDS: S1 normal heart sound present and S2 normal heart sound present GI: COMMON NORMALS: Normal to inspection, nondistended, normoactive bowel sounds present, Soft to palpation and non-tender PALPATION: Yes Soft to palpation Extremity: COMMON NORMALS: no joint enlargement and no pedal edema Neuro: COMMON NORMALS: patient oriented x3 and moves all extremities SENSORIUM/ORIENTATION: Yes alert Skin: COMMON NORMALS: no rashes or lesions noted GENERAL SKIN EXAM: no r ashes or lesions noted Data 07/08/23 11:22 07/08/23 11:22 A&P Assessment and plan (1) Unstable angina: History of exertional angina initially thought to be secondary to anemia, but persistent despite workup for anemia was referred for stress testing. Stress test aborted due to chest pain during the test, symptoms improved but still persistent currently. Reviewed vitals, CBC, INR, CMP, chest x-ray. Reviewed ER documentation, discussed with ER provider. Baseline troponin with minimal elevation at 16, 2-hour troponin noted mild elevation 22.92. 6-hour troponin pending. EKG with nonspecific ST-T wave abnormality without obvious acute [place] on my assessment. D-dimer requested, noted not elevated. With progressive exertional angina, currently possible unstable angina will continue aspirin, Plavix, discussed with him anticoagulation with Lovenox, continue beta-facundo, increase statin to high intensity. At risk of bleeding with anticoagulation, with history of anemia, follow-up blood counts. Cardiology is consulted. TTE. At risk of arrhythmia, telemetry monitoring. Monitor blood pressure, he states at home usually well-controlled, possibly secondary to recent stressful events. Noted hyperglycemia, 125, no history of diabetes, will check A1c. Encourage complete smoking cessation. (2) Hypertension: Blood pressure is elevated, although usually he states at home are better controlled. Continue beta-facundo. With anticipation for possible coronary angiogram for now we will hold off lisinopril-HCTZ. Will add amlodipine. Continue tamsulosin. (3) Hyperglycemia: 125, no history of diabetes. Check A1c. Plan History of CVA: Continue aspirin, Plavix, statin, increased to high intensity. Check A1c with hyperglycemia. BPH: Continue tamsulosin. History of recurrent UTI HLD: Continue statin Anemia: On DAPT, anticoagulation, follow-up CBC. Has EGD and colonoscopy, states a few polyps removed, otherwise unremarkable. Will add PPI for now. Attestations Medical Necessity Statement*: Place in observation for additional assessment management of chest pain, possible unstable angina. Diagnoses Unstable angina I20.0 Hypertension I10 Hyperglycemia R73.9
[2023-07-08 15:39] LABS: Add Urine Microscopic? NO; Charge for UA Resulting for Rev
[2023-07-08 15:49] LABS: Urine Appearance Clear (CLEAR); Urine Color Colorless (Yellow); pH Urine 7 (5-7)
[2023-07-08 15:50] LABS: Bilirubin Urine Neg (Negative); Blood Urine Neg (Negative); Glucose Urine UA Norm (Normal); Ketones Urine Negative (Negative); Leukocyte Esterase Urine Negative (Negative); Nitrate Urine Negative (Negative); Protein Urine Neg (Negative); Urobilinogen Urine Norm (Negative)
--- NOTE | 2023-07-08 16:12 | PM.CONSULT ---
Providers/Reason For Consult Consulting Physician/Specialty*: Cardiology Reason for Consult*: Chest pain/angina Requesting Physician: Dr. Dani Warner Attending Physician: Lenin Calderon Primary Care Provider: SANTHOSH Lr History of Present Illness History of Present Illness Edi Chawla is a 73 year old male with no previous the known cardiac history came to the hospital this morning for a nuclear exercise stress test for symptoms of chest pain. He had a resting portion of nuclear images however because he developed some chest discomfort with the tachycardia, transient atrial fibrillation with rapid ventricular rate on EKG, therefore the exercise stress test part was canceled and subsequently patient was seen in the ER Patient complains of exertional chest pain and shortness of air for the last couple of months and symptom has worsened in the last 2 weeks. Now he gets a chest discomfort heaviness across both shoulder after walking less than 50 yards. Associated symptoms are shortness of air. Symptoms eased off at rest. He denies any chest pain symptoms at rest. No orthopnea or paroxysmal nocturnal dyspnea. Currently he is laying comfortably on his bed in the ER. He is in sinus rhythm with a heart rate 78 bpm. His blood pressure and oxygen saturation is normal. Review of Systems Narrative: Detailed 10 point systemic review is that significant for some history of hematuria, possibly related to trauma. He under went some endoscopic procedure a last year and has since low hemoglobin in the range of 9. Rest of systemic inquiry is unremarkable except for as mentioned above in the history of present illness. Medications/Allergies Home Medications Medication Instructions Recorded Confirmed Last Taken Type atenolol 100 mg tablet 100 mg PO DAILY 02/22/20 07/08/23 07/07/23 History atorvastatin 20 mg tablet 20 mg PO DAILY 02/22/20 07/08/23 07/07/23 History clopidogrel 75 mg tablet 75 mg PO DAILY 02/22/20 07/08/23 07/07/23 History lisinopril 20 1 tab PO BID 02/22/20 07/08/23 07/07/23 History mg-hydrochlorothiazide 25 mg tablet ascorbic acid (vitamin C) 1,000 mg 1,000 mg PO DAILY 03/20/22 07/08/23 07/07/23 History tablet (Vitamin C) aspirin 81 mg capsule 81 mg PO DAILY 03/20/22 07/08/23 07/07/23 History buspirone 5 mg tablet 5 mg PO BID 03/20/22 07/08/23 07/08/23 History omega 4-boe-hor-fish oil 120 1 cap PO DAILY 03/20/22 07/08/23 07/07/23 History mg-180 mg-500 mg capsule (Fish Oil) venlafaxine 150 mg tablet,extended 150 mg PO DAILY 03/20/22 07/08/23 07/08/23 History release 24 hr tamsulosin 0.4 mg capsule 0.4 mg PO DAILY #90 caps 04/18/22 07/08/23 07/08/23 Rx Allergies Allergy/AdvReac Type Severity Reaction Status Date / Time celecoxib [From Celebrex] Allergy ADR-Hyperte Verified 07/08/23 11:16 nsion Penicillins Allergy ALGY-Swell Verified 07/08/23 11:16 Lip/Tongue/Throat PFSH Acute PFSH: Medical History BPH loc w urin obs/LUTS History of CVA (cerebrovascular accident) History of recurrent UTI (urinary tract infection) Hyperlipidemia Hypertension Surgical History History of ankle surgery History of bladder surgery History of right shoulder replacement Family History Father , at age 63 CAD (coronary artery disease) Diabetes Mother , at age 85 CAD (coronary artery disease) Social History Smoking and tobacco/nicotine status: former use of tobacco/nicotine (Chew tobacco) Alcohol intake: never Household members: spouse Marital status: Current occupational status: employed and retired Vitals/I&O/Wt Last Vital Signs Temp 98.3 F 07/08/23 11:14 Pulse 113 H 07/08/23 11:14 Resp 18 07/08/23 11:14 BP 151/107 07/08/23 11:14 Pulse Ox 98 07/08/23 11:14 O2 Del Method Room Air 07/08/23 11:14 Weight last 48 hrs Weight 231 lb Physical Exam Narrative: Laying comfortably in the bed. Not in any distress. HENMT: OTHER: Normal Eye: OTHER: Unremarkable Chest: OTHER: Unremarkable normal exam Resp: OTHER: Good air entry bilaterally. No added sounds. Cardio: OTHER: Heart rate 80 bpm. Normal first and second heart sounds. No added sounds. GI: OTHER: Abdomen soft and nontender. Bowel sounds audible. Extremity: OTHER: Normal. No pedal edema. Neuro: OTHER: Normal. and grossly intaact Skin: OTHER: warm and dry Data 07/08/23 11:22 07/08/23 11:22 A&P Assessment and plan (1) Unstable angina: Plan 73-year-old male with no previous cardiac history, now admitted with symptoms of worsening angina. Unable to perform the stress test today due to exertional chest pain. Clinically no heart failure. Recommendations: With ongoing anginal symptoms, especially the worsening of symptoms during the last 2 weeks, I recommend a cardiac catheterization. However his hemoglobin is on the lower side and it is important to make sure he has no ongoing hematuria or other source of blood loss before we proceed to a angiography and possible angioplasty. In the meantime I recommend to start him on dual antiplatelets, beta-facundo for heart rate control, oral nitrates and statins. Coding Level of Care Code Acute Code for [facility] Fwd Diagnoses Unstable angina I20.0 Time Spent (min) 45
--- NOTE | 2023-07-08 16:22 | ECG_ITS ---
[facility] Test Date: 2023-07-08 Pat Name: Edi Chawla Department: Room: 108 Gender: Male County Supervisor: : 1950 Requested By: Dani Warner Order Number: [id number] MD: Oneida Fuentes M.D. Measurements Intervals [place] Rate: 105 P: 41 DC: 137 QRS: -1 QRSD: 86 T: 36 QT: 331 QTc: 438 Interpretive Statements SINUS TACHYCARDIA MINIMAL VOLTAGE CRITERIA FOR LVH, CONSIDER NORMAL VARIANT [MEETS CRITERIA IN ONE OF: R(aVL), S(V1), R(V5), R(V5/V6)+S(V1)] ST changes suggestive of ischemia Compared to ECG 07/08/2023 13:14:44 ST (T wave) deviation now present Electronically Signed On 07-09-2023 13:31:10 WHEEL AND CASTER REPAIRER by Oneida Fuentes M.D. [id number]
[2023-07-08 16:56] LABS: D Dimer 0.36 ug/mLFEU (0-0.59)
[2023-07-08 16:59] LABS: Troponin 5 6HR 21.92 ng/L (0-15)
[2023-07-08 17:00] LABS: Troponin 5 6HR Delta 5.92 ng/L (0-12)
[2023-07-08 17:28] VITALS: BP 143/100; PULSE 104; PULSE 109; RESP 22; O2SAT 94
--- NOTE | 2023-07-08 17:28 | USCV_ITS ---
Edi Chawla Age: 73 Gender: M : 1950 Exam Date: 07/08/2023 23:23 Ordering Phys: Lenin Calderon MD Technologist: LAZARO [place] [facility] [place]: Unstable angina. No history of cardiac intervention per patient. BP: 151 / 107 HR: 81 Rhythm: Sinus Technical Quality: Adequate MEASUREMENTS (Male / Female) Normal Values 2D ECHO LV Diastolic Diameter PLAX 4.4 cm 4.2 - 5.9 / 3.9 - 5.3 cm LV Systolic Diameter PLAX 2.7 cm IVS Diastolic Thickness 1.8 cm 0.6 - 1.0 / 0.6 - 0.9 cm IVS Systolic Thickness 2.3 cm LVPW Diastolic Thickness 1.7 cm 0.6 - 1.0 / 0.6 - 0.9 cm LVPW Systolic Thickness 2.3 cm LVOT Diameter 2.3 cm LV Ejection Fraction 2D Teich 69.5 % LV Ejection Fraction MOD 2C 71.9 % LV Ejection Fraction 2C AL 71.7 % LA Diameter 5.3 cm LA Width 4.2 cm LA Height 5.7 cm RA Width 2.6 cm RA Height 4.2 cm Aorta at Sinotubular Diameter 3.3 cm IVC Diameter 1.7 cm M-MODE Aortic Annulus Diameter 3.8 cm LA Ao Ratio MM 1.3 MV E Point Septal Separation 0.3 cm DOPPLER AV Peak Velocity 139.0 cm/s LVOT Peak Velocity 136.0 cm/s AV Area Cont Eq vti 4.0 cm squared AV Area Cont Eq pk 4.1 cm squared MV Area PHT 3.5 cm squared Mitral E to A Ratio 0.8 MV E' Velocity 41.0 cm/s Mitral E to MV E' Ratio 10.7 Mitral E to LV E' Lateral Ratio 10.5 Mitral E to LV E' Septal Ratio 11.0 TV Peak E Velocity 50.0 cm/s PV Peak Velocity 137.0 cm/s RV Acceleration Time 0.1 s RV Ejection Time 0.3 s RV AcT/ET 0.2 FINDINGS Left Ventricle Mild left ventricular hypertrophy. Normal left ventricular size, systolic function and wall thickness, with no regional wall motion abnormalities. Left ventricular ejection fraction is estimated at 70 %. Right Ventricle Normal right ventricular size and systolic function. Right Atrium Normal right atrial size. Left Atrium Normal left atrial size. Mitral Valve Mildly thickened mitral valve. Trace mitral valve regurgitation. Aortic Valve Thickened aortic valve. No aortic valve stenosis. Tricuspid Valve Structurally normal tricuspid valve. Trace tricuspid valve regurgitation. Pulmonic Valve Structurally normal pulmonic valve. Trace pulmonary valve regurgitation. Pericardium No pericardial effusion. Aorta Normal size aortic root and proximal ascending aorta. IVC Normal IVC dimension with >50% respiratory change of the inferior vena cava. CONCLUSIONS 1. Mild left ventricle hypertrophy. Normal LV systolic function. LVEF normal at 70%. 2. Normal chamber sizes. 3. No significant valvular abnormality noted. 4. Normal right heart and pulmonary pressures. Oneida Fuentes MD (Electronically Signed) Final Date: 09 July 2023 11:58 S
[2023-07-08 18:30] VITALS: BMI 36.1
[2023-07-08] MEDS: enoxaparin 100 mg/mL Syringe SUBCUT (19:45)
[2023-07-08] MEDS: pantoprazole DR 40 mg Tablet PO (19:46)
[2023-07-08] MEDS: BuSPIRONE 10 mg Tablet 5 MG PO (19:46)
[2023-07-08 20:00] VITALS: BP 156/84; PULSE 85; RESP 15; TEMP 36.9; O2SAT 98
[2023-07-08 21:59] LABS: Estmated Average Glucose 128; Hemoglobin A1C 6.1 % (4.0-6.0)
[2023-07-08 22:00] VITALS: PULSE 94
[2023-07-09] VITALS (13 sets, daily range): BP systolic 130–179; BP diastolic 77–103; PULSE 64–93; RESP 15–24; TEMP 36.4–37.1; O2SAT 96–99; BMI 26.7
--- NOTE | 2023-07-09 03:40 | ECG_ITS ---
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 Measurements Intervals [place] Rate: 110 P: 0 [place]: 0 QRS: -1 QRSD: 81 T: 39 QT: 320 QTc: 434 Interpretive Statements ATRIAL FIBRILLATION WITH RAPID VENTRICULAR RESPONSE NONSPECIFIC ST & T-WAVE ABNORMALITY ABNORMAL RHYTHM ECG Compared to ECG 07/08/2023 16:22:47 Rhythm is changed from sinus rhythm to atrial fibrillation Electronically Signed On 07-09-2023 12:43:43 ENGAGEMENT MANAGER by Oneida Fuentes M.D. [id number]
[2023-07-09] MEDS: dilTIAZem 5 mg/mL SDV 5 mL IVP (03:55)
[2023-07-09] MEDS: morphine 4 mg/mL SDV 1 mL 2 MG IVP (03:57)
[2023-07-09 04:06] LABS: Basophils # 0.1 10^3/uL (0.0-0.1); Basophils % 1.2 %; Eosinophils # 0.2 10^3/uL (0.0-0.8); Eosinophils % 2.2 %; Hematocrit 32.5 % (37-53); Lymphocytes # 2.6 10^3/uL (0.8-4.8); Lymphocytes % 35.7 %; Mean Corpuscular HGB Conc 26.8 g/dL (30-55); Mean Corpuscular Hemoglobin 18.7 pg (27-33); Mean Corpuscular Volume 69.9 fl (82-101); Mean Platelet Volume 9.6 fL (7.4-10.4); Monocytes # 0.7 10^3/uL (0.2-0.9); Monocytes % 9.8 %; Neutrophils % 50.8 %; Nucleated Red Blood Cells % 0 %; Platelet Count 274 10^3/cmm (157-399); Red Blood Count 4.65 10^6/uL (3.85-5.65); Red Cell Distribution Width 19.6 % (12.1-15.1); White Blood Count 7.28 10^3/uL (3.29-11.43)
[2023-07-09 04:25] LABS: Anion Gap 12.5 (5-19); Blood Urea Nitrogen 18 mg/dL (8-23); Calcium 8.8 mg/dL (8.5-10.5); Carbon Dioxide 29 mmol/L (22-29); Chloride 109 mmol/L (98-107); Glucose 115 mg/dL (65-115); Osmolality Calculated 305 mOsm/kg (285-295); Potassium 4.5 mmol/L (3.5-5.1); Sodium 146 mmol/L (136-145)
--- NOTE | 2023-07-09 04:59 | PC.NURSE ---
patient went into A-fib with chest pain. Dr Nava notified gave verbal order for 5mg cardizem IVP and EKG was performed and printed. Cardizem was administered per orders along with 2mg morphine given for chest pain. Patient converted into sinus rhythm at 0445 and has remained as of 0502.
[2023-07-09] MEDS: enoxaparin 100 mg/mL Syringe SUBCUT (06:18)
[2023-07-09] MEDS: aspirin 325 mg Tablet PO (09:25)
[2023-07-09] MEDS: atenolol 50 mg Tablet 100 MG PO (09:26)
[2023-07-09] MEDS: pantoprazole DR 40 mg Tablet PO (09:26)
[2023-07-09] MEDS: BuSPIRONE 10 mg Tablet 5 MG PO ×2 (09:26→17:19)
[2023-07-09] MEDS: amlodipine 5 mg Tablet PO (09:26)
[2023-07-09] MEDS: venlafaxine ER (24HR) 150 mg Capsule PO (09:26)
[2023-07-09] MEDS: tamsulosin 0.4 mg Capsule PO (09:26)
[2023-07-09] MEDS: atorvastatin 40 mg Tablet 20 MG PO (09:27)
[2023-07-09] MEDS: clopidogrel 75 mg Tablet PO (09:27)
--- NOTE | 2023-07-09 16:28 | PM.PN ---
Subjective Subjective: Reports at the moment he is feeling better. Denies chest pain or pressure. Reports this morning he had a fast heart rate and required an IV push over medication. Vitals/I&O/Wt Last Vital Signs Temp 98.8 F 07/09/23 15:58 Pulse 64 07/09/23 15:58 Resp 22 H 07/09/23 15:58 BP 179/97 07/09/23 15:58 Pulse Ox 96 07/09/23 15:58 O2 Del Method Room Air 07/09/23 15:58 07/09/23 07/09/23 07/09/23 06:59 14:59 22:59 Intake Total 400 / 400 Output Total 700 / 700 Balance -700 / -700 400 / 400 Weight last 48 hrs Weight 77.564 kg Weight 77.564 kg Weight 104.78 kg Weight 104.78 kg Physical Exam Narrative: Accompanied by family. Const: COMMON NORMALS: patient oriented x3 and alert GENERAL APPEARANCE: cooperative NUTRITIONAL APPEARANCE: obese ORIENTATION/CONSCIOUSNESS: Yes awake HENMT: COMMON NORMALS: oropharynx normal Neck/C-Spine: COMMON NORMALS: no JVD Resp: COMMON NORMALS: normal respiratory effort and clear to auscultation bilaterally AUSCULTATION: clear to auscultation bilaterally Cardio: COMMON NORMALS: no JVD, regular rhythm, S1 normal heart sound present, S2 normal heart sound present and No murmurs present (Cardio) RHYTHM: regular rhythm HEART SOUNDS: S1 normal heart sound present and S2 normal heart sound present GI: COMMON NORMALS: Normal to inspection, nondistended, normoactive bowel sounds present, Soft to palpation and non-tender PALPATION: Yes Soft to palpation Extremity: COMMON NORMALS: no joint enlargement and no pedal edema Neuro: COMMON NORMALS: patient oriented x3 and moves all extremities SENSORIUM/ORIENTATION: Yes alert Skin: COMMON NORMALS: no rashes or lesions noted GENERAL SKIN EXAM: no rashes or lesions noted Data 07/09/23 03:25 07/09/23 03:25 Micro: Microbiology 07/09/23 13:08 Occult Blood (FIT) - Final Stool Routine Collection A&P Assessment and plan (1) Unstable angina: Reviewed vitals, CBC, CMP, troponin series, EKG. Echocardiogram. Appreciate cardiology doctors, discussed with cardiology, he would benefit from further assessment by coronary angiography given high concern for underlying coronary disease, but there is concern regarding anemia as below. Continue DAPT, atenolol, statin. (2) Anemia: Discussed with cardiac exercise physiologist who is concerned with regards to his anemia, some worsening today down to 8.7. He has been on DAPT, Lovenox was added yesterday. No gross bleeding, patient states that he has been watching out for this. He has recently undergone upper and lower endoscopy. Few polyps were removed from lower endoscopy. Noted MCV is 69.9. Suspected chronic slow bleed, however, unclear whether the polyps removed have taking care of the issue. Discussed so much with him and with cardiology. As his hemoglobin has come down below 9, with concern for cardiac ischemia cardiology recommending transfusion to get hemoglobin above 9. Discussed with him he is agreeable, understands the risks including taco, trali, allergic and other reaction. Requested transfusion. Cardiology will reassess following his blood counts to see if he responds well, if they remain stable, consideration may be given to cautiously proceeding with coronary angiogram. Patient understands that antiplatelets need to be continued history of stent placement. Understands that there may be recurrence of anemia in case there are possible sites of bleeding elsewhere and not seen by upper or lower endoscopy likely in the small intestine. In that case he would need further assessment possibly with capsule endoscopy, push enteroscopy which are not available at this facility. (3) Hypertension: Hypertension, BP 179/97. Will resume lisinopril. Continue atenolol, amlodipine. (4) Hyperglycemia: 125, no history of diabetes. A1c reviewed, noted prediabetes, A1c 6.1. Plan History of CVA: Continue aspirin, Plavix, statin, increased to high intensity. Prediabetes with A1c 6.1. BPH: Continue tamsulosin. History of recurrent UTI HLD: Continue statin Attestations Medical Necessity Statement*: Continue admission for assessment management of chest pain, suspected CAD, possible unstable angina, and gentleman with worsened anemia. Diagnoses Unstable angina I20.0 Anemia D64.9 Hypertension I10 Hyperglycemia R73.9
[2023-07-09] MEDS: lisinopril 20 mg Tablet PO (17:19)
[2023-07-10] VITALS: BP 108/69; PULSE 70; RESP 15; TEMP 36.8; O2SAT 99
[2023-07-10 04:00] VITALS: BP 161/86; PULSE 73; RESP 18; TEMP 36.7; O2SAT 98
[2023-07-10 04:48] LABS: Basophils # 0.1 10^3/uL (0.0-0.1); Basophils % 1.2 %; Eosinophils # 0.2 10^3/uL (0.0-0.8); Hematocrit 36.7 % (37-53); Lymphocytes # 2.2 10^3/uL (0.8-4.8); Lymphocytes % 32.1 %; Mean Corpuscular HGB Conc 26.7 g/dL (30-55); Mean Corpuscular Hemoglobin 19.3 pg (27-33); Mean Corpuscular Volume 72.1 fl (82-101); Mean Platelet Volume 9.3 fL (7.4-10.4); Monocytes # 0.6 10^3/uL (0.2-0.9); Monocytes % 8.7 %; Neutrophils % 54.7 %; Nucleated Red Blood Cells % 0 %; Platelet Count 247 10^3/cmm (157-399); Red Blood Count 5.09 10^6/uL (3.85-5.65); Red Cell Distribution Width 20.3 % (12.1-15.1); White Blood Count 6.76 10^3/uL (3.29-11.43)
[2023-07-10 05:08] LABS: Anion Gap 13.9 (5-19); Blood Urea Nitrogen 16 mg/dL (8-23); Calcium 8.8 mg/dL (8.5-10.5); Carbon Dioxide 28 mmol/L (22-29); Chloride 105 mmol/L (98-107); Glucose 95 mg/dL (65-115); Osmolality Calculated 297 mOsm/kg (285-295); Potassium 3.9 mmol/L (3.5-5.1); Sodium 143 mmol/L (136-145)
[2023-07-10 06:00] VITALS: PULSE 74
--- NOTE | 2023-07-10 06:31 | PC.SOCIAL ---
IMM Update pg 2 of IMM not updated as patient is currently in observation status.
[2023-07-10 07:31] VITALS: BP 163/88; PULSE 62; RESP 15; TEMP 37; O2SAT 94
[2023-07-10] MEDS: atorvastatin 40 mg Tablet 20 MG PO (09:22)
[2023-07-10] MEDS: tamsulosin 0.4 mg Capsule PO (09:23)
[2023-07-10] MEDS: venlafaxine ER (24HR) 150 mg Capsule PO (09:23)
[2023-07-10] MEDS: amlodipine 5 mg Tablet PO (09:23)
[2023-07-10] MEDS: clopidogrel 75 mg Tablet PO (09:24)
[2023-07-10] MEDS: BuSPIRONE 10 mg Tablet 5 MG PO (09:24)
[2023-07-10] MEDS: atenolol 50 mg Tablet 100 MG PO (09:25)
[2023-07-10] MEDS: aspirin 325 mg Tablet PO (09:25)
[2023-07-10] MEDS: pantoprazole DR 40 mg Tablet PO (09:25)
[2023-07-10 11:15] VITALS: BMI 28.1
--- NOTE | 2023-07-10 11:53 | P.PN_ITS ---
Subjective Subjective: I saw patient this morning, reviewed his labs and his vitals. Clinically he feels better no further chest pain or palpitation. He received 1 unit of blood transfusion yesterday and his hemoglobin improved from 8.7to 9.8. Additionally his heart rate and blood pressure is much better controlled. I note his stool is positive for occult blood and after discussing with the hospitalist we are planning for him to see the GI team for investigation of chronic blood loss. Medications: Medication Review Details: Reviewed his medications and made further adjustment Vitals/I&O/Wt Last Vital Signs Temp 98.6 F 07/10/23 07:31 Pulse 62 07/10/23 07:31 Resp 15 07/10/23 07:31 BP 163/88 07/10/23 07:31 Pulse Ox 94 07/10/23 07:31 O2 Del Method Room Air 07/10/23 07:31 07/09/23 07/10/23 07/10/23 22:59 06:59 14:59 Intake Total 940 / 1340 620 / 1960 360 / 360 Balance 940 / 1340 620 / 1960 360 / 360 Weight last 48 hrs Weight 179 lb 9.6 oz Weight 179 lb 9.6 oz Weight 171 lb Weight 171 lb Weight 231 lb Physical Exam Narrative: Laying comfortably. No respiratory distress. Vitals reviewed heart rate 60 bpm blood pressure 142/86. H ENMT exam: Unremarkable No JVD. Cardiovascular exam unremarkable. Normal first and second heart sounds. No lower extremity edema. Lungs clear to auscultation bilaterally. Abdominal soft nontender. Bowel sounds audible. Lower extremities: Unremarkable. No pedal edema. Neuro: Intact and normal Skin: Warm and dry. Data 07/10/23 03:50 07/10/23 03:50 Micro: Microbiology 07/09/23 13:08 Occult Blood (FIT) - Final Stool Routine Collection A&P Assessment and plan (1) Unstable angina: (2) Anemia: (3) Hypertension: Plan 69-year-old male patient with worsening exertional angina in the setting of uncontrolled hypertension and anemia. Clinically patient symptoms much improved after 1 unit of blood transfusion and with management of blood pressure and tachycardia. Clinically no angina no and no signs symptoms of heart failure. Given the history of anemia with a positive occult blood in the stool, plan to manage conservatively and plan for further investigation by GI team for chronic blood loss. We optimized the medicines, adding lisinopril and amlodipine and increasing the dose of atenolol for blood pressure and heart rate control. Also added oral nitrates. I stopped his a Plavix and reduced the dose of aspirin from 325 mg to aspirin 81 mg EC. Patient will be followed up in the cardiology clinic in 2 weeks and in the meantime he will see the bacteriology research assistant. Attestations Medical Necessity Statement*: unstable angina,anemia Coding Level of Care Code Acute Code for [facility] Diagnoses Unstable angina I20.0 Anemia D64.9 Hypertension I10
[2023-07-10 12:00] VITALS: BP 165/111; PULSE 62; RESP 18; TEMP 37.1; O2SAT 100
[2023-07-10 12:43] LABS: Ferritin 21 ng/mL (30-400); Iron 32 ug/dL (59-158); Percent Saturation 7.8 % (20-50); Total Iron Binding Capacity 406 mcg/dl; Unsaturated Iron Binding 374 ug/dL (112-347)
[2023-07-10 13:05] VITALS: BP 165/111; PULSE 62; RESP 18; TEMP 37.1; O2SAT 100
--- NOTE | 2023-07-10 21:20 | PM.DCS ---
Discharge Providers Date of Admission: 07/08/23 14:34 Date of Discharge: July 10, 2023 Attending Provider at Admission: Lenin Calderon Attending Provider at Discharge: Lenin Calderon Primary Care Provider: SANTHOSH Lr Diagnoses at Discharge Discharge Diagnosis (1) Unstable angina: Status: Acute (2) Anemia: Status: Acute (3) Hypertension: Status: Acute Reason for Visit Reason for Visit: Chest pains Brief History: 73-year-old gentleman with history of CVA, on aspirin and Plavix, hypertension, states that blood pressure at home is usually controlled, anemia has been having exertional angina which was initially thought to be secondary to anemia, underwent upper and lower endoscopy with some polyp removal, however, with persistent exertional angina was referred for assessment by stress testing.? States has had chest pain with walking/exertion prior to stress test as well as developed chest pain during stress test necessitating discontinuation of the procedure.? Was referred for assessment to the ER.? He reports chest pain is not related to inspiration, over the front of his chest radiating to his neck and arms.? Severe at that time, so far improved, but persistent.? Received aspirin in ER. Denies past history of known CAD or [place], never had a stress test prior to this one. He chews tobacco, occasional/rare cigarette.? States on follow-up with his primary provider cholesterol has been well-controlled. Hospital Course Hospital Course He was continued on aspirin and Plavix, started on Lovenox, monitor on telemetry, echocardiogram was obtained which was unremarkable. He was assessed by cardiology. With initiated anticoagulation he was noted to have worsening of anemia, hemoglobin coming down to 8.7. Lovenox was stopped. As per discussion with cardiology RBC transfusions given to bring hemoglobin above 9. His chest pain had resolved without recurrence. Hemoccult was obtained and was positive. His condition and findings were discussed both by myself and business info consultant with discussion of further options of assessment management, with discussion of risks. He preferred not to transfer to [facility]. He has remained asymptomatic today. As per discussion with cardiology patient is referred for follow-up with gastroenterology for additional assessment and treatment of anemia, he started on long-acting nitrate, antihypertensives are optimized, with planned return follow-up with cardiology for further plans and arrangements for coronary angiography once anemia is addressed. Physical Exam Narrative: Accompanied by family. Const: COMMON NORMALS: patient oriented x3 and alert GENERAL APPEARANCE: cooperative NUTRITIONAL APPEARANCE: obese ORIENTATION/CONSCIOUSNESS: Yes awake HENMT: COMMON NORMALS: oropharynx normal Neck/C-Spine: COMMON NORMALS: no JVD Resp: COMMON NORMALS: normal respiratory effort and clear to auscultation bilaterally AUSCULTATION: clear to auscultation bilaterally Cardio: COMMON NORMALS: no JVD, regular rhythm, S1 normal heart sound present, S2 normal heart sound present and No murmurs present (Cardio) RHYTHM: regular rhythm HEART SOUNDS: S1 normal heart sound present and S2 normal heart sound present GI: COMMON NORMALS: Normal to inspection, nondistended, normoactive bowel sounds present, Soft to palpation and non-tender PALPATION: Yes Soft to palpation Extremity: COMMON NORMALS: no joint enlargement and no pedal edema Neuro: COMMON NORMALS: patient oriented x3 and moves all extremities SENSORIUM/ORIENTATION: Yes alert Skin: COMMON NORMALS: no rashes or lesions noted GENERAL SKIN EXAM: no rashes or lesions noted Discharge Data Studies Completed and Pending Completed Studies During Hospitalization Category Date Time Status XR chest 1V portable [id number] Stat Exams 07/08/23 11:05 Completed CV. echo complete* [id number] Routine Ultrasound 07/08/23 17:28 Completed Radiology Impressions Chest X-Ray 07/08/23 11:05 IMPRESSION: No acute findings. Laboratory Results WBC 6.76 10^3/uL (3.29-11.43) 07/10/23 03:50 RBC 5.09 10^6/uL (3.85-5.65) 07/10/23 03:50 Hgb 9.80 g/dL (11.27-16.99) L 07/10/23 03:50 Hct 36.7 % (37-53) L 07/10/23 03:50 MCV 72.1 fl (82-101) L 07/10/23 03:50 MCH 19.3 pg (27-33) L 07/10/23 03:50 MCHC 26.7 g/dL (30-55) L 07/10/23 03:50 RDW 20.3 % (12.1-15.1) H 07/10/23 03:50 Plt Count 247 10^3/cmm (157-399) 07/10/23 03:50 MPV 9.3 fL (7.4-10.4) 07/10/23 03:50 Neut % (Auto) 54.7 % 07/10/23 03:50 Lymph % (Auto) 32.1 % 07/10/23 03:50 Cook % (Auto) 8.7 % 07/10/23 03:50 Eos % (Auto) 3.0 % 07/10/23 03:50 Baso % (Auto) 1.2 % 07/10/23 03:50 Neut # (Auto) 3.70 10^3/uL (1.8-7.7) 07/10/23 03:50 Lymph # (Auto) 2.2 10^3/uL (0.8-4.8) 07/10/23 03:50 Cook # (Auto) 0.6 10^3/uL (0.2-0.9) 07/10/23 03:50 Eos # (Auto) 0.2 10^3/uL (0.0-0.8) 07/10/23 03:50 Baso # (Auto) 0.1 10^3/uL (0.0-0.1) 07/10/23 03:50 Nucleated RBC % (auto) 0 % 07/10/23 03:50 Nucleated RBCs # 0.0 /100WBC 07/10/23 03:50 PT 13.10 SECONDS (12.1-14.9) 07/08/23 11:22 INR 0.96 (0.8-1.2) 07/08/23 11:22 APTT 25.8 SECONDS (23.9-36.7) 07/08/23 11:22 D-Dimer 0.36 ug/mLFEU (0-0.59) 07/08/23 16:32 Sodium 143 mmol/L (136-145) 07/10/23 03:50 Potassium 3.9 mmol/L (3.5-5.1) 07/10/23 03:50 Chloride 105 mmol/L (98-107) 07/10/23 03:50 Carbon Dioxide 28 mmol/L (22-29) 07/10/23 03:50 Anion Gap 13.9 (5-19) 07/10/23 03:50 BUN 16 mg/dL (8-23) 07/10/23 03:50 Creatinine 1.0 mg/dL (0.7-1.2) 07/10/23 03:50 GFR Calculation Not Reportable 07/10/23 03:50 Glucose 95 mg/dL (65-115) 07/10/23 03:50 Estimat Average Glucose 128 07/08/23 11:22 Hemoglobin A1c 6.1 % (4.0-6.0) H 07/08/23 11:22 Calculated Osmolality 297 mOsm/kg (285-295) H 07/10/23 03:50 Calcium 8.8 mg/dL (8.5-10.5) 07/10/23 03:50 Iron 32 ug/dL (59-158) L 07/10/23 03:50 TIBC 406 mcg/dl 07/10/23 03:50 % Saturation 7.8 % (20-50) L 07/10/23 03:50 Unsat Iron Binding 374 ug/dL (112-347) H 07/10/23 03:50 Ferritin 21 ng/mL (30-400) L 07/10/23 03:50 Total Bilirubin 0.4 mg/dL (0.15-1.2) 07/08/23 11:22 AST 17 U/L (0-40) 07/08/23 11:22 ALT 18 U/L (0-41) 07/08/23 11:22 Alkaline Phosphatase 100 U/L (40-130) 07/08/23 11:22 Troponin T Baseline 16 ng/L (0-15) H 07/08/23 11:22 Troponin T 120 Minute 22.92 ng/L (0-15) H 07/08/23 13:28 Delta Troponin T 6.92 ABS# (0-10) 07/08/23 13:28 Troponin T Hi Sens 6Hr 21.92 ng/L (0-15) H 07/08/23 16:32 Troponin T Hi Sens 6Hr Delta 5.92 ng/L (0-12) 07/08/23 16:32 NT-Pro-B Natriuret Pep 359 pg/mL (0-125) H 07/08/23 11:22 Total Protein 6.7 g/dL (6.6-8.7) 07/08/23 11:22 Albumin 4.1 g/dL (3.5-5.2) 07/08/23 11: Globulin 2.6 g/dL (1.3-4.6) 07/08/23 11:22 Urine Color Colorless (Yellow) 07/08/23 12:10 Urine Appearance Clear (CLEAR) 07/08/23 12:10 Urine pH 7 (5-7) 07/08/23 12:10 Ur Specific [place] 1.010 (1.005-1.030) 07/08/23 12:10 Urine Protein Neg (Negative) 07/08/23 12:10 Urine Glucose (UA) Norm (Normal) 07/08/23 12:10 Urine Ketones Negative (Negative) 07/08/23 12:10 Urine Blood Neg (Negative) 07/08/23 12:10 Urine Nitrate Negative (Negative) 07/08/23 12:10 Urine Bilirubin Neg (Negative) 07/08/23 12:10 Urine Urobilinogen Norm mg/dL (Negative) 07/08/23 12:10 Ur Leukocyte Esterase Negative (Negative) 07/08/23 12:10 Blood Type A Positive 07/08/23 13:28 Rho(D) Type Rh positive 07/08/23 13:28 Antibody Screen Negative 07/08/23 13:28 Crossmatch See Detail 07/08/23 13:28 Vitals Last Vital Signs Temp 98.7 F 07/10/23 13:05 Pulse 62 07/10/23 13:05 Resp 18 07/10/23 13:05 BP 165/111 07/10/23 13:05 Pulse Ox 100 07/10/23 13:05 O2 Del Method Room Air 07/10/23 12:00 Discharge Plan Discharge Patient Disposition: Home Condition: Stable Prescriptions: New isosorbide mononitrate 30 mg Tablet Extended Release 24 Hr 30 mg PO DAILY Qty: 90 0RF amlodipine 5 mg Tablet 5 mg PO DAILY Qty: 90 0RF iron 325 mg (65 mg iron) tablet 325 mg PO EVERY OTHER DAY Qty: 90 0RF nitroglycerin 0.4 mg Tablet, Sublingual 0.4 mg sublingual Q5M PRN (Reason: Chest Pain) Qty: 25 0RF pantoprazole 40 mg Tablet,Delayed Release (Dr/Ec) 40 mg PO BIDWMEAL Qty: 180 0RF Continued tamsulosin 0.4 mg capsule 0.4 mg PO DAILY Qty: 90 3RF atorvastatin 20 mg tablet 20 mg PO DAILY atenolol 100 mg tablet 100 mg PO DAILY lisinopril-hydrochlorothiazide 20-25 mg tablet 1 tab PO BID buspirone 5 mg tablet 5 mg PO BID ascorbic acid (vitamin C) [Vitamin C] 1,000 mg Tablet 1,000 mg PO DAILY venlafaxine 150 mg Tablet Extended Release 24 Hr 150 mg PO DAILY Fish Oil 120-180-500 mg Capsule 1 cap PO DAILY aspirin 81 mg Capsule 81 mg PO DAILY Discontinued clopidogrel 75 mg tablet 75 mg PO DAILY Discharge Orders: Discharge Order (Routine); Ordered 07/10/23 Ordered By: Lenin Calderon Other Ambulatory Orders: MCT/Event Monitor 21 Days (Routine) Timeframe: 1 Day Facility: [facility] - Location: Radiology Ordered By: Lenin Calderon Referrals: [facility], Gastroenterology [Other] - 4-7 days ( GI blood loss anemia, CAD. Already has had EGD and colonoscopy, still with anemia, positive hemoccult. Referral for assessment of persistent GI blood loss anemia, in need of further cardiac work up after anemia is addressed. ) Ijeoma Alexander FNP [Primary Care Provider] - 07/28/23 2:20 pm Henry Cottrell M.D [Physician] - 2 weeks Discharge Diet: Cardiac Discharge Activity: Limit activity as instructed Patient Instructions: Pantoprazole (By mouth), Coronary Artery Disease (GEN), Heart Healthy Diet (GEN), Anemia (GEN), Prevent Cardiovascular Disease (GEN), Opioid Safety Activity Restrictions/Additional Instructions: Avoid exertion, light activities okay. In case of chest pain you can take up to 3 doses of nitroglycerin 5 minutes apart if pain is not resolving call 911 immediately. Avoid any NSAIDs including ibuprofen, Aleve, etc. Continue Protonix. Follow-up with gastroenterology for assessment of GI blood loss anemia with stool positive for hidden blood despite having already had EGD and colonoscopy. After anemia is addressed follow-up again with cardiology to arrange for further assessment of your heart. Return to the hospitalist case of any worsening or new concerning symptoms. Discuss episode of atrial fibrillation with your primary doctor and on revisit with cardiology. You are given referral for cardiac monitoring to see if you are having any additional episodes of atrial fibrillation in which case you would benefit from additional therapy to reduce your chance of stroke as your risk of stroke is elevated. If anemia is, as discussed, anticoagulation may be considered, if anticoagulation is not an option, discussed with your primary provider/business info consultant regarding referral for a left atrial appendage closure device like watchman or other. Discharge Attestations Time Spent in Discharge Care*: greater than 30 min Quality Metrics Clinical Quality Measures [ No reported AMI, CVA or VTE this stay] Coding Level of Care Code Acute Code for [facility] Diagnoses Unstable angina I20.0 Anemia D64.9 Hypertension I10
== END 2023-07-10 13:25 | disposition home or self-care (01) ==
LOC: ER 11:55 → CSU 14:34
PROVIDERS: Admitting Provider Internal Medicine; Emergency Provider Internal Medicine; PCP Nurse Practitioner Family; Visit Provider Internal Medicine
DX: I20.0 Unstable angina (principal); D64.9 Anemia, unspecified; I10 Essential (primary) hypertension; Z86.73 Personal history of transient ischemic attack (TIA), and cerebral infarction without residual deficits; Z79.82 Long term (current) use of aspirin; Z79.02 Long term (current) use of antithrombotics/antiplatelets; Z87.440 Personal history of urinary (tract) infections; E78.5 Hyperlipidemia, unspecified; N40.1 Benign prostatic hyperplasia with lower urinary tract symptoms; N13.8 Other obstructive and reflux uropathy; F17.220 Nicotine dependence, chewing tobacco, uncomplicated; R07.9 Chest pain, unspecified
CPT/HCPCS: 12345; 36415; 71045; 80048; 80053; 81003; 82274; 82728; 83036; 83540; 83550; 83880; 84484; 85025; 85378; 85610; 85730; 86850; 86900; 86920; 93005; 93010; 93306; 96372; 96374; 96375; 99285; G0378; J1650; J2270; J3490; P9016

== ENCOUNTER → 2023-07-28 10:46 | Outpatient (BNVA) | payer MEDICARE, SELFPAY | PROVIDERS: PCP Nurse Practitioner Family; Visit Provider Nurse Practitioner Family | DX: I20.89 Other forms of angina pectoris (principal); I48.91 Unspecified atrial fibrillation; I10 Essential (primary) hypertension; Z09 Encounter for follow-up examination after completed treatment for conditions other than malignant neoplasm; I25.110 Atherosclerotic heart disease of native coronary artery with unstable angina pectoris; I77.9 Disorder of arteries and arterioles, unspecified; D50.0 Iron deficiency anemia secondary to blood loss (chronic); E78.2 Mixed hyperlipidemia; N17.9 Acute kidney failure, unspecified | CPT/HCPCS: 93005; 99214 ==

== ENCOUNTER 2023-07-28 14:41 | Inpatient (IN) | payer MEDICARE, SELFPAY ==
[2023-07-28] VITALS (36 sets, daily range): BP systolic 86–140; BP diastolic 59–78; PULSE 68–102; RESP 13–26; TEMP 36.6–37.4; O2SAT 91–100; BMI 32.7
--- NOTE | 2023-07-28 14:44 | XR_ITS ---
WS: [id number] Exam: XR chest 1V portable [id number] Date/Time of Exam: 07/28/2023 2:50 PM Reason For Exam: cp Comparison 07/08/2023. The lungs are clear and fully expanded. Normal cardiomediastinal silhouette. Bony structures are inta ct. At least one old left-sided rib fracture noted. RIGHT AC joint separation. IMPRESSION: 1. No acute cardiopulmonary finding.
--- NOTE | 2023-07-28 14:50 | ECG_ITS ---
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 Measurements Intervals [place] Rate: 102 P: 48 [place]: 141 QRS: 18 QRSD: 83 T: 68 QT: 330 QTc: 430 Interpretive Statements SINUS TACHYCARDIA NONSPECIFIC T-WAVE ABNORMALITY Compared to ECG 07/28/2023 10:50:27 T-wave abnormality now present Electronically Signed On 07-28-2023 15:01:02 CIGARETTE PACKAGE EXAMINER by Henry Cottrell M.D. [id number]
--- NOTE | 2023-07-28 14:52 | ED_ITS ---
HPI - Chest Pain 2 General: Chief Complaint: Chest Pain Stated Complaint: chest pain Time Seen by Provider: 07/28/23 14:44 Source: patient and EMS Mode of arrival: EMS Limitations: no limitations History of Present Illness: 73-year-old male states he has been havi ng chest pain over the last 2 weeks. Patient was admitted here over giving for chest pain he did attempt to outpatient stress test and had pain and the stress test was stopped while he is admitted he had some anemia his chest pain resolved and did not get a heart cath but states that since being home he has had intermittent chest pains he was at his PCPs office at [facility] and was having chest pain there and sent here pain is currently a 2 out of 10 denies any shortness of breath pains in the center of his chest he denies any worsening proving factors Associated symptoms: Deny abdominal pain, dyspnea, fever(s), nausea or vomiting Review of Systems 2 Const: Denies: fever(s), chills, body aches or change in appetite ENMT: Denies: throat pain or dental pain Card: Reports: chest pain Resp: Denies: dyspnea GI: Denies: abdominal pain, nausea, vomiting or diarrhea Musc: Denies: neck pain or back pain Skin/Breast: Denies: rash Neuro: Denies: headache(s) PFSH ED 2 PFSH: Medical History Testosterone deficiency BPH loc w urin obs/LUTS History of recurrent UTI (urinary tract infection) Hyperlipidemia Hypertension History of CVA (cerebrovascular accident) Surgical History History of right shoulder replacement History of ankle surgery History of bladder surgery Family History Father , at age 63 CAD (coronary artery disease) Diabetes Mother , at age 85 CAD (coronary artery disease) Social History Smoking and tobacco/nicotine status: former use of tobacco/nicotine (Chew tobacco) Alcohol intake: never Household members: spouse Marital status: Current occupational status: employed and retired Physical Exam 2 Const: COMMON NORMALS: patient oriented x3 HENMT: COMMON NORMALS: normocephalic and atraumatic HEAD & SCALP: n ormocephalic and atraumatic Eye: COMMON NORMALS: Equal, round and reactive pupils present and EOMs intact bilaterally PUPIL: Yes Equal, round and reactive pupils present Neck/C-Spine: COMMON NORMALS: full ROM and supple Chest: COMMONS NORMALS: normal inspection of the chest and normal palpation of entire chest wall Resp: COMMON NORMALS: normal respiratory effort, No retractions, No use of accessory muscles and clear to auscultation bilaterally AUSCULTATION: clear to auscultation bilaterally Cardio: COMMON NORMALS: regular rate, regular rhythm and No murmurs present (Cardio) RATE: regular rate RHYTHM: regular rhythm GI: COMMON NORMALS: Normal to inspection, nondistended, normoactive bowel sounds present, Soft to palpation, non-tender and no masses PALPATION: Yes Soft to palpation Extremity: COMMON NORMALS: normal to inspection and full ROM Neuro: COMMON NORMALS: patient oriented x3, moves all extremities and no focal motor deficits Psych: COMMON NORMALS: mental status grossly normal, Normal thought process present and cooperative THOUGHT PROCESS: Normal thought process present Skin: COMMON NORMALS: no rashes or lesions noted and no wounds GENERAL SKIN EXAM: no rashes or lesions noted Course 2 Vital Signs: Vital signs: Vital Signs Temperature 97.8 F 07/28/23 14:52 Pulse Rate 91 07/28/23 15:52 Respiratory Rate 13 07/28/23 15:52 Blood Pressure 106/59 07/28/23 15:52 Pulse Oximetry 93 07/28/23 15:52 Oxygen Delivery Me thod Room Air 07/28/23 15:42 MDM - Chest Pain Medical Decision Making Patient presents for chest pain his initial troponin here is 20 I spoke to toll gate keeper Dr. Ashby will admit at this time for ACS rule out. Medical Records I reviewed the patient's medical records. Lab Data I reviewed the patient's lab results. 07/28/23 14:55 07/28/23 14:55 Laboratory Results WBC 12.72 10^3/uL (3.29-11.43) H 07/28/23 14:55 RBC 5.12 10^6/uL (3.85-5.65) 07/28/23 14:55 Hgb 10.70 g/dL (11.27-16.99) L 07/28/23 14:55 Hct 37.6 % (37-53) 07/28/23 14:55 MCV 73.4 fl (82-101) L 07/28/23 14:55 MCH 20.9 pg (27-33) L 07/28/23 14:55 MCHC 28.5 g/dL (30-55) L 07/28/23 14:55 RDW 23.4 % (12.1-15.1) H 07/28/23 14:55 Plt Count 367 10^3/cmm (157-399) 07/28/23 14:55 MPV 9.2 fL (7.4-10.4) 07/28/23 14:55 Neut % (Auto) 79.5 % 07/28/23 14:55 Lymph % (Auto) 11.9 % 07/28/23 14:55 [place] % (Auto) 6.8 % 07/28/23 14:55 Eos % (Auto) 0.5 % 07/28/23 14:55 Baso % (Auto) 0.7 % 07/28/23 14:55 Neut # (Auto) 10.12 10^3/uL (1.8-7.7) H 07/28/23 14:55 Lymph # (Auto) 1.5 10^3/uL (0.8-4.8) 07/28/23 14:55 [place] # (Auto) 0.9 10^3/uL (0.2-0.9) 07/28/23 14:55 Eos # (Auto) 0.1 10^3/uL (0.0-0.8) 07/28/23 14:55 Baso # (Auto) 0.1 10^3/uL (0.0-0.1) 07/28/23 14:55 Nucleated RBC % (auto) 0 % 07/28/23 14:55 Nucleated RBCs # 0.0 /100WBC 07/28/23 14:55 Sodium 138 mmol/L (136-145) 07/28/23 14:55 Potassium 4.1 mmol/L (3.5-5.1) 07/28/23 14:55 Chloride 98 mmol/L (98-107) 07/28/23 14:55 Carbon Dioxide 26 mmol/L (22-29) 07/28/23 14:55 Anion Gap 18.1 (5-19) 07/28/23 14:55 BUN 23 mg/dL (8-23) 07/28/23 14:55 Creatinine 1.6 mg/dL (0.7-1.2) H 07/28/23 14:55 GFR Calculation Not Reportable 07/28/23 14:55 Glucose 158 mg/dL (65-115) H 07/28/23 14:55 Calculated Osmolality 293 mOsm/kg (285-295) 07/28/23 14:55 Calcium 9.1 mg/dL (8.5-10.5) 07/28/23 14:55 Total Bilirubin 0.3 mg/dL (0.15-1.2) 07/28/23 14:55 AST 20 U/L (0-40) 07/28/23 14:55 ALT 21 U/L (0-41) 07/28/23 14:55 Alkaline Phosphatase 99 U/L (40-130) 07/28/23 14:55 Troponin T Baseline 20 ng/L (0-15) H 07/28/23 14:55 Total Protein 6.8 g/dL (6.6-8.7) 07/28/23 14:55 Albumin 3.8 g/dL (3.5-5.2) 07/28/23 14:55 Globulin 3.0 g/dL (1.3-4.6) 07/28/23 14:55 Lipase 29 U/L (13-60) 07/28/23 14:55 All radiology interpretation(s) finalized by discharge EKG Data EKG 1: I personally reviewed and interpreted this EKG as follows: EKG interpretation date: 07/28/23 EKG interpretation time: 14:50 Interpretation: sinus tach hr [address] or t wave abnormalities qrs 83 qtc 389 Discharge Plan Discharge Patient Disposition: Admitted As Inpatient Admit Provider: Maggi Rees Clinical Impression: Chest pain Condition: Stable Coding Level of Care Code ED Electronic Lab Technician for [facility]
[2023-07-28 15:00] LABS: Basophils # 0.1 10^3/uL (0.0-0.1); Basophils % 0.7 %; Eosinophils # 0.1 10^3/uL (0.0-0.8); Eosinophils % 0.5 %; Hematocrit 37.6 % (37-53); Lymphocytes # 1.5 10^3/uL (0.8-4.8); Lymphocytes % 11.9 %; Mean Corpuscular HGB Conc 28.5 g/dL (30-55); Mean Corpuscular Hemoglobin 20.9 pg (27-33); Mean Corpuscular Volume 73.4 fl (82-101); Mean Platelet Volume 9.2 fL (7.4-10.4); Monocytes # 0.9 10^3/uL (0.2-0.9); Monocytes % 6.8 %; Neutrophils # 10.12 10^3/uL (1.8-7.7); Neutrophils % 79.5 %; Nucleated Red Blood Cells % 0 %; Platelet Count 367 10^3/cmm (157-399); Red Blood Count 5.12 10^6/uL (3.85-5.65); Red Cell Distribution Width 23.4 % (12.1-15.1); White Blood Count 12.72 10^3/uL (3.29-11.43)
[2023-07-28 15:21] LABS: Troponin(5th) Baseline 20 ng/L (0-15)
[2023-07-28 15:23] LABS: Alanine Aminotransferase 21 U/L (0-41); Albumin Level 3.8 g/dL (3.5-5.2); Alkaline Phosphatase 99 U/L (40-130); Anion Gap 18.1 (5-19); Aspartate Amino Transferase 20 U/L (0-40); Blood Urea Nitrogen 23 mg/dL (8-23); Calcium 9.1 mg/dL (8.5-10.5); Carbon Dioxide 26 mmol/L (22-29); Chloride 98 mmol/L (98-107); Glucose 158 mg/dL (65-115); Lipase 29 U/L (13-60); Osmolality Calculated 293 mOsm/kg (285-295); Potassium 4.1 mmol/L (3.5-5.1); Sodium 138 mmol/L (136-145); Total Bilirubin 0.3 mg/dL (0.15-1.2); Total Protein 6.8 g/dL (6.6-8.7)
--- NOTE | 2023-07-28 15:31 | PC.PHAR ---
Addendum entered by Eli Garcia 07/28/23 15:35: VERIFIED WITH PHARMACY, PT DID MANAGER EQUIPMENT THE CLOPIDOGREL 75 MG ON06/26/23 FOR 90 DAY SUPPLY. ALSO VERIFIED LISINOPRIL-HYDROCHLOROTHIAZIDE 20-25 MG TWICE DAILY. Original Note: PT PICKED UP CLOPIDOGREL 75 MG 1 TABLET DAILY ON 06/26/23 90DS. PT STATES THEY TOOK HIM OFF IT TODAY AND INCREASED HIS ISOSORBIDE MONONITRATE 30 MG FROM 1 DAILY TO 1 TWICE DAILY. HE SHOWED ME HIS PAPERWORK TO VERIFY. 07/28/23
--- NOTE | 2023-07-28 16:46 | P.CONIM_ITS ---
Providers/Reason For Consult 2 Consulting Physician/Specialty*: LEOBARDO Ashby MD/cardiology Reason for Consult*: Patient increasing episodes of chest pains/multiple risk factors for coronary artery disease Requesting Physician: Dr Skylar Rees/Dr. Eduardo Attending Physician: Maggi Rees MD Primary Care Provider: SANTHOSH Lr History of Present Illness History of Present Illness Edi Chawla is a 73 year old male with a history of high blood pressure, dyslipidemia, is readmitted to the hospital with increasing episodes of chest pains. This patient apparently has been having episodes of chest pain for the last 3 months or so. He describes the pain as exertional, mid substernal region, radiating across the chest, to the left shoulder, left arm and to the back. He has associated shortness of breath and sweaty. The pain usually last for 3 to 4 minutes and then subside spontaneously with the rest and also with a deep breath. He also been taking sublingual nitro on a as needed basis. His functional status has been deteriorating over the last month or so. The chest pain has been infrequent with the beginning but lately he been having the pain almost every day, frequency depends on the level of exertion. This patient has no previous history for coronary artery disease, myocardial infarction or congestive heart failure. On the of last month, he had an attempted stress test. Apparently his chest pain started getting worse on the treadmill. He also was found to be developing a new onset of atrial fibrillation. For this reason, the test was canceled. He was anemic at that time. After the blood transfusion, his chest symptoms improved. He was seen by his primary care provider today and was complaining of increasing episodes of chest pain. For that reason, he was sent to the emergency room for further evaluation and management. His hemoglobin was found to be around 10.8, better than the last time. His EKG and show any acute changes. Because of the increasing episodes of chest pain, he is admitted to hospital for further evaluation management. This patient has been chewing tobacco for the last 50 years. He has been chewing tobacco 1 or 2 cans/day up until last month when he cut back to 1 or 2 cans/week. No alcohol abuse or any other substance abuse. Both parents had a coronary disease. His father started having the heart problems in the 50s and mother in the 60s. No other relevant family history. Review of Systems 2 Narrative: CONSTITUTIONAL: No fever or chills. Has been having some amount of weakness and dyspnea on exertion EYES: No blurring of vision or other visual disturbances lately. ENT: No hoarseness of voice, auditory disturbances or sore throat. CARDIOVASCULAR: As mentioned above. RESPIRATORY: No fever, chills or cough. GASTROINTESTINAL: Hide GI bleed. Endoscopy studies did not reveal any active bleeding. Polyp was removed, a month ago. GENITOURINARY: No dysuria or hematuria. INTEGUMENTARY: No skin rashes or history of skin cancer. NEURO: No transient ischemic attacks or amaurosis. PSYCHIATRIC: No history of psychosis or major depression. HEMATOLOGIC: No bleeding disorders or significant anemia. ENDOCRINE: No history of polyuria or polydipsia. MUSCULOSKELETAL: No recent joint pain or swelling. ALLERGY/IMMUNOLOGY: As mentioned above. Medications/Allergies Home Medications Medication Instructions Recorded Confirmed Last Taken Type atenolol 100 mg tablet 100 mg PO DAILY 02/22/20 07/28/23 07/28/23 History atorvastatin 20 mg tablet 20 mg PO DAILY 02/22/20 07/28/23 07/28/23 History lisinopril 20 1 tab PO BID 02/22/20 07/28/23 07/28/23 History mg-hydrochlorothiazide 25 mg tablet ascorbic acid (vitamin C) 1,000 mg 1,000 mg PO DAILY 03/20/22 07/28/23 07/28/23 History tablet (Vitamin C) aspirin 81 mg capsule 81 mg PO DAILY 03/20/22 07/28/23 07/28/23 History buspirone 5 mg tablet 5 mg PO BID 03/20/22 07/28/23 07/28/23 History omega 2-rov-hcs-fish oil 120 1 cap PO DAILY 03/20/22 07/28/23 07/28/23 History mg-180 mg-500 mg capsule (Fish Oil) venlafaxine 150 mg tablet,extended 150 mg PO DAILY 03/20/22 07/28/23 07/28/23 History release 24 hr tamsulosin 0.4 mg capsule 0.4 mg PO DAILY #90 caps 04/18/22 07/28/23 07/28/23 Rx amlodipine 5 mg tablet 5 mg PO DAILY #90 tabs 11/07/28/23 07/28/23 Rx nitroglycerin 0.4 mg sublingual 0.4 mg sublingual Q5M PRN Chest 07/10/23 07/28/23 Unknown Rx tablet Pain #25 tabs ferrous sulfate 325 mg (65 mg 325 mg PO DAILY 07/28/23 07/28/23 07/28/23 History iron) tablet (iron) isosorbide mononitrate 30 mg 30 mg PO BID #180 tabs 07/28/23 07/28/23 07/28/23 Rx tablet,extended release 24 hr pantoprazole 40 mg tablet,delayed 40 mg PO BID 07/28/23 07/28/23 07/28/23 History release Allergies Allergy/AdvReac Type Severity Reaction Status Date / Time celecoxib [From Celebrex] Allergy ADR-Hyperte Verified 07/08/23 11:16 nsion Penicillins Allergy ALGY-Swell Verified 07/08/23 11:16 Lip/Tongue/Throat PFSH Acute 2 PFSH: Medical History Testosterone deficiency BPH loc w urin obs/LUTS History of recurrent UTI (urinary tract infection) Hyperlipidemia Hypertension History of CVA (cerebrovascular accident) Surgical History History of right shoulder replacement History of ankle surgery History of bladder surgery Family History Father , at age 63 CAD (coronary artery disease) Diabetes Mother , at age 85 CAD (coronary artery disease) Social History Smoking and tobacco/nicotine status: former use of tobacco/nicotine (Chew tobacco) Alcohol intake: never Household members: spouse Marital status: Current occupational status: employed and retired Vitals/I&O/Wt Last Vital Signs Temp 97.8 F 07/28/23 14:52 Pulse 91 07/28/23 15:52 Resp 13 07/28/23 15:52 BP 106/59 07/28/23 15:52 Pulse Ox 93 07/28/23 15:52 O2 Del Method Room Air 07/28/23 15:57 Weight last 48 hrs Weight 228 lb Weight 228 lb Physical Exam 2 Narrative: GENERAL: The patient is alert and oriented times three. Not in any acute distress. HEENT: No significant pallor, icterus or lymphadenopathy.Oral cavity: There are no mucous membrane lesions. NECK: Trachea appears to be central. No masses noted. No JVD or thyromegaly appreciated. RESPIRATORY: Chest is symmetrical. No intercostals muscle retraction or any accessory muscle activation. There is no chest wall tenderness. Breath sounds are heard bilaterally. No rales or rhonchi heard. No evidence of any consolidation. BREASTS: Deferred. HEART: The heart sounds are normal. No S3 or S4. No significant murmurs. No pericardial rub ABDOMEN: No vessel pulsations or distention. No tenderness. No organomegaly appreciated. Bowel sounds are normally heard. : Deferred. RECTAL: Deferred. LYMPHATIC: No lymphadenopathy noted in the neck. EXTREMITIES: The peripheral pulses are weak bilaterally. MUSCULOSKELETAL: No acute joint deformities or swelling SKIN: There are no significant rashes or ecchymosis NEUROPSYCHIATRIC: The patient is alert and oriented x3. Appears to be in a good mood. No tremors or rigidity noted. Data 07/29/23 02:23 07/29/23 02:23 Other Labs: Laboratory Last Values WBC 12.72 10^3/uL (3.29-11.43) H 07/28/23 14:55 RBC 5.12 10^6/uL (3.85-5.65) 07/28/23 14:55 Hgb 10.70 g/dL (11.27-16.99) L 07/28/23 14:55 Hct 37.6 % (37-53) 07/28/23 14:55 MCV 73.4 fl (82-101) L 07/28/23 14:55 MCH 20.9 pg (27-33) L 07/28/23 14:55 MCHC 28.5 g/dL (30-55) L 07/28/23 14:55 RDW 23.4 % (12.1-15.1) H 07/28/23 14:55 Plt Count 367 10^3/cmm (157-399) 07/28/23 14:55 MPV 9.2 fL (7.4-10.4) 07/28/23 14:55 Neut % (Auto) 79.5 % 07/28/23 14:55 Lymph % (Auto) 11.9 % 07/28/23 14:55 [place] % (Auto) 6.8 % 07/28/23 14:55 Eos % (Auto) 0.5 % 07/28/23 14:55 Baso % (Auto) 0.7 % 07/28/23 14:55 Neut # (Auto) 10.12 10^3/uL (1.8-7.7) H 07/28/23 14:55 Lymph # (Auto) 1.5 10^3/uL (0.8-4.8) 07/28/23 14:55 [place] # (Auto) 0.9 10^3/uL (0.2-0.9) 07/28/23 14:55 Eos # (Auto) 0.1 10^3/uL (0.0-0.8) 07/28/23 14:55 Baso # (Auto) 0.1 10^3/uL (0.0-0.1) 07/28/23 14:55 Nucleated RBC % (auto) 0 % 07/28/23 14:55 Nucleated RBCs # 0.0 /100WBC 07/28/23 14:55 Sodium 138 mmol/L (136-145) 07/28/23 14:55 Potassium 4.1 mmol/L (3.5-5.1) 07/28/23 14:55 Chloride 98 mmol/L (98-107) 07/28/23 14:55 Carbon Dioxide 26 mmol/L (22-29) 07/28/23 14:55 Anion Gap 18.1 (5-19) 07/28/23 14:55 BUN 23 mg/dL (8-23) 07/28/23 14:55 Creatinine 1.6 mg/dL (0.7-1.2) H 07/28/23 14:55 GFR Calculation Not Reportable 07/28/23 14:55 Glucose 158 mg/dL (65-115) H 07/28/23 14:55 Calculated Osmolality 293 mOsm/kg (285-295) 07/28/23 14:55 Calcium 9.1 mg/dL (8.5-10.5) 07/28/23 14:55 Total Bilirubin 0.3 mg/dL (0.15-1.2) 07/28/23 14:55 AST 20 U/L (0-40) 07/28/23 14:55 ALT 21 U/L (0-41) 07/28/23 14:55 Alkaline Phosphatase 99 U/L (40-130) 07/28/23 14:55 Troponin T Baseline 20 ng/L (0-15) H 07/28/23 14:55 Total Protein 6.8 g/dL (6.6-8.7) 07/28/23 14:55 Albumin 3.8 g/dL (3.5-5.2) 07/28/23 14:55 Globulin 3.0 g/dL (1.3-4.6) 07/28/23 14:55 Lipase 29 U/L (13-60) 07/28/23 14:55 EKG 1: My Interpretation: Normal sinus rhythm with some nonspecific T wave changes. Otherwise unremarkable A&P Assessment and plan (1) Unstable angina pectoris due to coronary arteriosclerosis: Patient symptoms are suggestive of unstable angina. He seems to have fluctuating blood pressure. Currently the blood pressure is on the low normal side. The EKG changes are nonspecific. No evidence of microinjury. Patient may be treated with IV heparin, low-dose of beta-facundo, aspirin, Plavix, statin and other symptomatic measures. He may be closely monitored on telemetry. He also may be treated with careful IV hydration. (2) Peripheral arterial occlusive disease: I may go ahead with an arterial duplex of the lower extremities with MEAGAN to further evaluate the peripheral artery disease. Based on the results, further recommendations will be made. (3) Atrial fibrillation, new onset: Patient is currently in sinus rhythm. May continue on the current medications. (4) Anemia: Patient seems to have chronic GI bleed. Source of bleeding is not known at this point. The hemoglobin seems to be improving. Currently has no evidence of any active bleed. Qualifiers: Anemia type: iron deficiency Iron deficiency anemia type: chronic blood loss Qualified Code(s): D50.0 - Iron deficiency anemia secondary to blood loss (chronic) (5) Hypertension: Currently the blood pressure is on the low side. May be carefully treated with some IV fluid Qualifiers: Hypertension type: primary hypertension Qualified Code(s): I10 - Essential (primary) hypertension (6) Hyperlipidemia: May continue on the current medication. Qualifiers: Hyperlipidemia type: mixed hyperlipidemia Qualified Code(s): E78.2 - Mixed hyperlipidemia (7) Acute kidney injury: Possibly from hypotension. After IV hydration, we may repeat the BMP in the morning. Plan Patient requires a cardiac catheterization to further evaluate his coronary status. Will go ahead and do the arterial Doppler examination of the MEAGAN today. Patient may be carefully treated with IV fluid Repeat a BMP and troponin T in the morning i. Based on the clinical progress, further recommendations will be made. Thank you for the opportunity to evaluate this patient make this recommendation Consult Attestations 2 Medical Necessity Statement: Echocardiogram on 07/09/2023 1. Mild left ventricle hypertrophy. No rmal LV systolic function. LVEF normal at 70%. 2. Normal chamber sizes. 3. No significant valvular abnormality noted. 4. Normal right heart and pulmonary pressures. Coding Level of Care Code 26122 Diagnoses Unstable angina pectoris due to coronary arteriosclerosis I25.110 Peripheral arterial occlusive disease I77.9 Atrial fibrillation, new onset I48.91 Iron deficiency anemia due to chronic blood loss D50.0 Anemia type: iron deficiency Iron deficiency anemia type: chronic blood loss Primary hypertension I10 Hypertension type: primary hypertension Mixed hyperlipidemia E78.2 Hyperlipidemia type: mixed hyperlipidemia Acute kidney injury N17.9
--- NOTE | 2023-07-28 17:48 | P.HP_ITS ---
Providers/Chief Complaint 2 Admitting Physician: Maggi Rees MD Primary Care Provider: SANTHOSH Lr Chief Complaint: chest pain History of Present Illness Edi Chawla is a 73 year old male With a past medical history of hypertension, hyperlipidemia who presented to the hospital today with chief complaints of chest pain. Patient followed up with cardiology nurse practitioner this morning and was then on his way to see his primary care physician when he developed worsening chest pain. States he was unable to walk inside. He was noted to be hypotensive with blood pressure in the 70s and was sent via EMS to the emergency room. He was admitted here recently on July 09 and was undergoing a stress test when he developed chest pain and the test was aborted. He was anemic at that time and received blood transfusion. Angiogram was deferred at that time due to anemia. Hemoglobin is now improved to 10.8. With receiving IV fluids his blood pressure has currently improved to 120/70 at the time of this assessment. Has been started on a heparin drip. Review of Systems 2 General: Reports: 10 or more systems reviewed and unremarkable except in HPI and below Const: Denies: fever(s), chills or body aches Eyes: Denies: change in vision, blurry vision or photophobia ENMT: Reports: hoarseness; Denies: throat pain, enlarged tonsils, odynophagia or nasal congestion Card: Denies: chest pain, palpitations, irregular heart rhythm, edema, swelling of feet/ankles, lightheadedness, pre-syncope, dyspnea on exertion or orthopnea Resp: Denies: dyspnea, productive cough, non-productive cough, wheezing, stridor, pain on inspiration, change in phlegm color, hemoptysis or chest congestion GI: Denies: abdominal pain, nausea, vomiting, hematemesis, coffee ground emesis, dysphagia, heartburn, diarrhea, constipation, GI cramping, change in stool character, hematochezia or melena : Denies: flank pain, dysuria, urinary frequency, urinary urgency, urinary hesitancy or hematuria Musc: Denies: neck pain, back pain, extremity pain, joint swelling, joint warmth or deformity Neuro: Denies: headache(s), numbness in extremities, weakness in extremities, sensory changes, difficulty walking, frequent falls, dizziness, vertigo, behavioral changes, Slurred speech present or seizure-like activity Psych: Denies: anxiety, depression, suicidal ideation or homicidal ideation Endo: Denies: polyuria, polydipsia, tired all the time, cold intolerance or hot flashes Julius/Lymph: Denies: easy bruising or easy bleeding Medications/Allergies Home Medications Medication Instructions Recorded Confirmed Last Taken Type atenolol 100 mg tablet 100 mg PO DAILY 02/22/20 07/28/23 07/28/23 History atorvastatin 20 mg tablet 20 mg PO DAILY 02/22/20 07/28/23 07/28/23 History lisinopril 20 1 tab PO BID 02/22/20 07/28/23 07/28/23 History mg-hydrochlorothiazide 25 mg tablet ascorbic acid (vitamin C) 1,000 mg 1,000 mg PO DAILY 03/20/22 07/28/23 07/28/23 History tablet (Vitamin C) aspirin 81 mg capsule 81 mg PO DAILY 03/20/22 07/28/23 07/28/23 History buspirone 5 mg tablet 5 mg PO BID 03/20/22 07/28/23 07/28/23 History omega 4-yjn-swr-fish oil 120 1 cap PO DAILY 03/20/22 07/28/23 07/28/23 History mg-180 mg-500 mg capsule (Fish Oil) venlafaxine 150 mg tablet,extended 150 mg PO DAILY 03/20/22 07/28/23 07/28/23 History release 24 hr tamsulosin 0.4 mg capsule 0.4 mg PO DAILY #90 caps 04/18/22 07/28/23 07/28/23 Rx amlodipine 5 mg tablet 5 mg PO DAILY #90 tabs 07/10/23 07/28/23 07/28/23 Rx nitroglycerin 0.4 mg sublingual 0.4 mg sublingual Q5M PRN Chest 07/10/23 07/28/23 Unknown Rx tablet Pain #25 tabs ferrous sulfate 325 mg (65 mg 325 mg PO DAILY 07/28/23 07/28/23 07/28/23 History iron) tablet (iron) isosorbide mononitrate 30 mg 30 mg PO BID #180 tabs 07/28/23 07/28/23 07/28/23 Rx tablet,extended release 24 hr pantoprazole 40 mg tablet,delayed 40 mg PO BID 07/28/23 07/28/23 07/28/23 History release Allergies Allergy/AdvReac Type Severity Reaction Status Date / Time celecoxib [From Celebrex] Allergy ADR-Hyperte Verified 07/08/23 11:16 nsion Penicillins Allergy ALGY-Swell Verified 07/08/23 11:16 Lip/Tongue/Throat PFSH Acute 2 PFSH: Medical History Testosterone deficiency BPH loc w urin obs/LUTS History of recurrent UTI (urinary tract infection) Hyperlipidemia Hypertension History of CVA (cerebrovascular accident) Surgical History History of right shoulder replacement History of ankle surgery History of bladder surgery Family History Father , at age 63 CAD (coronary artery disease) Diabetes Mother , at age 85 CAD (coronary artery disease) Social History Smoking and tobacco/nicotine status: former use of tobacco/nicotine (Chew tobacco) Alcohol intake: never Household members: spouse Marital status: Current occupational status: employed and retired Vitals/I&O/Wt Last Vital Signs Temp 97.8 F 07/28/23 14:52 Pulse 91 07/28/23 15:52 Resp 13 07/28/23 15:52 BP 106/59 07/28/23 15:52 Pulse Ox 93 07/28/23 15:52 O2 Del Method Room Air 07/28/23 15:57 Weight last 48 hrs Weight 103.419 kg Weight 103.419 kg Weight 103.419 kg Physical Exam 2 Narrative: General: No acute distress, AO x3 HEENT: PERRLA, pupils bilaterally equal and reactive, pallors not present Chest: Normal vesicular breath sounds, no added sounds, equal good air entry bilaterally CVS: S1-S2 regular, no murmurs, no tachycardia, no gallops, no rubs Abdomen: Soft, nontender, no organomegaly, bowel sounds present Neuro: No focal deficits, no facial deformity, AO x3, power 5/5 in all limbs Data 07/29/23 02:23 07/29/23 02:23 A&P Assessment and plan (1) Unstable angina pectoris due to coronary arteriosclerosis: Patient presenting today with chest pain. Classical symptoms of chest pain worsening at rest. Strongly suspect underlying angina to be the cause of his chest pain. Patient was unable to complete a stress test just this past month. EKG changes nonspecific. Baseline troponin at 20. Will trend at 2 and 6 hours. Continue heparin drip in the interim. Continue aspirin 81 mg p.o. daily. Hold nitrates for now given patient was recently hypotensive. Hemoglobin is currently stable at 10.8. Denies any active bleeding. Cardiology consulted from the emergency room, likely planned angiogram in the morning if his creatinine improves. YVETTE with creatinine at 1.6 today. Holding lisinopril HCTZ for this reason. Gentle IV hydration, reassess creatinine in the a.m. and if trending down plans for angiogram. Attestations 2 Medical Necessity Statement*: Anticipate greater than 2 midnight admission at this point in time given that patient would likely need an angiogram with possible intervention. Coding Level of Care Code Acute Code for Moshe Lundberg Diagnoses Unstable angina pectoris due to coronary arteriosclerosis I25.110
[2023-07-28] MEDS: pantoprazole DR 40 mg Tablet PO (18:04)
[2023-07-28] MEDS: nitroglycerin 1 gm/inch oint Pkt 0.5 INCH TOPICAL ×2 (18:04→22:26)
[2023-07-28] MEDS: BuSPIRONE 10 mg Tablet 5 MG PO (18:05)
[2023-07-28] MEDS: sodium chloride 0.9% 1,000 ML 125 ML IV (18:06)
[2023-07-28 19:04] LABS: Troponin 5 2HR 14.98 ng/L (0-15)
[2023-07-28 19:09] LABS: Troponin 5 2HR Delta -5.02 ABS# (0-10)
[2023-07-28] MEDS: heparin 5,000 unit/mL INJ 1 mL IV (19:13)
[2023-07-28] MEDS: heparin drip 25,000 UNIT/500 ML PREMIX 29.99 UNIT IV (19:16)
[2023-07-28 22:17] LABS: Troponin 5 6HR 16.37 ng/L (0-15)
[2023-07-28 22:21] LABS: Troponin 5 6HR Delta -3.63 ng/L (0-12)
[2023-07-29] VITALS (97 sets, daily range): BP systolic 104–176; BP diastolic 63–103; PULSE 74–100; RESP 8–26; TEMP 36.7–37.1; O2SAT 91–100
[2023-07-29] MEDS: sodium chloride 0.9% 1,000 ML 50 ML IV (01:41)
[2023-07-29 02:29] LABS: Basophils # 0.1 10^3/uL (0.0-0.1); Basophils % 0.6 %; Eosinophils # 0.2 10^3/uL (0.0-0.8); Eosinophils % 1.6 %; Hematocrit 34.4 % (37-53); Lymphocytes # 2.6 10^3/uL (0.8-4.8); Lymphocytes % 23.9 %; Mean Corpuscular HGB Conc 28.2 g/dL (30-55); Mean Corpuscular Hemoglobin 20.7 pg (27-33); Mean Corpuscular Volume 73.3 fl (82-101); Mean Platelet Volume 9.4 fL (7.4-10.4); Monocytes # 1.1 10^3/uL (0.2-0.9); Monocytes % 10.2 %; Neutrophils # 6.87 10^3/uL (1.8-7.7); Neutrophils % 63.3 %; Nucleated Red Blood Cells % 0 %; Platelet Count 328 10^3/cmm (157-399); Red Blood Count 4.69 10^6/uL (3.85-5.65); Red Cell Distribution Width 23.2 % (12.1-15.1); White Blood Count 10.85 10^3/uL (3.29-11.43)
[2023-07-29 02:42] LABS: Partial Thromboplastin Time 55.4 SECONDS (23.9-36.7)
[2023-07-29 02:47] LABS: Alanine Aminotransferase 20 U/L (0-41); Albumin Level 3.4 g/dL (3.5-5.2); Alkaline Phosphatase 92 U/L (40-130); Anion Gap 12.6 (5-19); Aspartate Amino Transferase 21 U/L (0-40); Blood Urea Nitrogen 21 mg/dL (8-23); Calcium 8.7 mg/dL (8.5-10.5); Carbon Dioxide 28 mmol/L (22-29); Chloride 102 mmol/L (98-107); Globulin 2.8 g/dL (1.3-4.6); Glucose 112 mg/dL (65-115); Osmolality Calculated 292 mOsm/kg (285-295); Potassium 3.6 mmol/L (3.5-5.1); Sodium 139 mmol/L (136-145); Total Bilirubin 0.3 mg/dL (0.15-1.2); Total Protein 6.2 g/dL (6.6-8.7)
--- NOTE | 2023-07-29 03:11 | PC.NURSE ---
PTT from 022 came back at 55.4- no change to heparin drip.
--- NOTE | 2023-07-29 06:20 | XACV_ITS ---
Exam Room: [facility] Ht: 178 cm Wt: 103 kg BSA: 2.29 m2 Gender: Male : 1950 Any Known Allergies: Other Exam Priority: Routine Procedure(s): Procedure Description: Diagnostic procedure Procedure Description: PCI procedure Procedure Description: Left Heart Catheterization Procedure Description: Left ventriculography Procedure Description: Drug Eluting Coronary Stent Procedure Description: Miscellaneous Procedure Description: ACT Procedure Description: Coronary Angiography Isma ANGELA; Diagnostic Cath Status: Urgent Diagnostic Findings * The left main is a medium caliber vessel with mild diffuse plaque. A 20% ostial eccentric narrowing was noted. No other significant lesions. * The left anterior descending artery is a medium caliber vessel which appears to have around 98% tubular lesion after the first diagonal branch. Moderate calcification was noted in the proximal to mid segment of the artery. The first diagonal branch was found to have mild diffuse intimal irregularities. The distal LAD was found to have mild diffuse disease intimal irregularities with no significant stenotic lesions. * The circumflex artery is a small to medium caliber nondominant vessel with no significant stenotic lesions. A high obtuse marginal branch, appears to be a intermedius artery. Mild diffuse intimal irregularities were noted in this vessel. * The right coronary artery is a medium caliber dominant vessel which was found to have mild diffuse intimal irregularities with no significant stenotic lesions. PCI Status: Urgent PCI LVEF Assessed: Yes PCI Indication: NSTE - ACS Interventional Findings * The lesion is somewhat calcified and resistant to balloon angioplasty. I chose a stent slightly larger than the vessel in order to properly expanded. The lesion was stented with a 2.75 x 8 mm stent with a good angiographic result and good distal flow. Decision for PCI with Surgical Consult: No PCI for Multi-vessel Disease: No Conclusions 1. 73-year-old white male with multiple risk factors for coronary disease, presenting with worsening chest pain over the last 3 months. His features are consistent with an unstable angina. For further evaluation of the patient's coronary status, cardiac catheterization was recommended. Patient underwent left heart catheterization with a left and right coronary angiogram and LV angiogram today. The findings are as follows. 2. 1. Mild disease of the left main. #2 critical tubular stenosis of the mid LAD. Moderate calcification in the proximal to the mid LAD. 3. Moderate diffuse disease in the circumflex artery. 4. Mild diffuse intimal irregularities in the circumflex artery. LVEDP of 12 mmHg. LV ejection fraction of 50%.. Interventional RX Recommendation: PCI w/o planned CABG Diagnostic RX Recommendation: PCI w/o planned CABG Ventriculography Ejection Fraction: 50.0 % LV EDP: 12 mmHg Left Ventriculography Findings: * The LV gram was performed the CRUZ projection. The LV cavity appears to be normal size. There is mild diffuse hypokinesia of the anteroapical region. No filling defects were noted. No significant mitral valve prolapse. Mild mitral regurgitation was noted. LV ejection fraction was around 50%. The LVEDP was 12 mmHg which went up to 19 following the LV angiogram.. Pressures Phase:Rest AO : 152 / 72 ( 101 ) @ 7:43:00 AM 112 / 71 ( 91 ) @ 7:44:00 AM 165 / 71 ( 109 ) @ 7:55:00 AM 158 / 70 ( 109 ) @ 7:55:00 AM 153 / 81 ( 112 ) @ 8:15:00 AM LV : 156 / -24 / 12 @ 7:54:00 AM 159 / -17 / 19 @ 7:55:00 AM 161 / -15 / 22 @ 7:55:00 AM Valves Phase:DefaultPhase AV : 0.0 @ 8:33:20 AM 0.0 @ 8:33:20 AM AV Mean Gradient: 0.0 @ 8:33:20 AM Clinical Evaluation EBL: 5mL-10mL Procedural Details Procedure Consent Obtained. Current Diagnosis : Chest Pain. Pre-Procedure Time Out. Identified patient by full name and date of as verbalized by the patient/guarantor. Does the consent match the physician's order: Yes. Accurate & Complete Informed Consent: Yes. Inpatient/Outpatient History & Physical on Chart: Yes. If H&P is completed, is and addenduem needed: No; If yes, is the addendum complete: N/A. Visualize and Verify Site with Patient/Guarantor: N/A. Relevant Radiology Images available: Yes. Pre-op teaching completed and patient verbalized understanding. The risks, benefits, and alternatives of sedation and/or procedure were discussed by physician. The patient agrees to continue. Procedure started. IV Site on Arrival: 20 gauge in the left hand. [facility] Clinical Fraility Score: 4: Vulnerable. Machine Burrer Indications: ACS > 24 hours. Chest Pain Symptom Assessment: Atypical Angina. Correct patient, site and procedure confirmed by cath team. Current diagnosis: Chest Pain. PERRLA. Strong, equal hand sexer bilaterally. Lungs clear x 5 lobes. IV Fluids: 0.9% NaCl at KVO. 100 mL infused prior to laborer tin can. Oxygen started at 2liters/min via nasal canula. right groin was prepped with chloroprep then draped in the usual sterile fashion. right radial was prepped with chloroprep then draped in the usual sterile fashion. Baseline sample Acquired. HR: 80 BPM. Physician notified. Physician arrived. Baseline sample Acquired. HR: 78 BPM. Physician scrubbed in. Immediate Pre-Procedure Time Out. Correct Patient: Yes; Correct Procedure: Yes; Correct Site: Yes; Correct Patient Position: Yes; Correct Supplies: Yes; Dried Flammable Prep: Yes; Blood Products Available: N/A;. Lidocaine 1% infiltrated to the right radial. Arterial access obtained. ACT drawn. Results 138 seconds. Therapeutic limits - pre-heparin administration 90-150 seconds and monitoring heparin during a vascular procedure >[address] helenian Eran catheter in over wire. Catheter removed over the exchange wire. A TR Band was successful obtaining hemostatsis at the Right Radial artery insertion site. Lidocaine 1% infiltrated to the right groin. Arterial access obtained with micropuncture set. Wire unable to advance. Wire and needle removed. Arterial access obtained with micropuncture set. Wire unable to advance. Wire and needle removed. Arterial access obtained with micropuncture set. Contrast hand injected through the needle. Needle removed. Arterial access obtained with micropuncture set. A 5 st helenian JL4 catheter in over wire. Multiple views taken of left coronary artery. Catheter removed over the standard wire. A 5 st helenian JR4 catheter in over wire. Multiple views taken of right coronary artery. Dr. Zimmerman called to view films. Catheter removed over the standard wire. A 5 st helenian Angled Pig catheter in over wire. EDP Sample taken: LV 156/-25,12; HR: 81 BPM; SpO2: 100%. LV gram performed in CRUZ @ 10 mL/second for a total of 30 mL. EDP Sample taken: LV 159/-18,19; HR: 73 BPM; SpO2: 100%. Pullback taken: LV 161/-16,22; AO 165/71(109); Mean: 0mmHg, Peak to Peak: 0mmHg, SEP: 17sec/min; HR: 82 BPM; SpO2: 99%. Catheter removed over the standard wire. Physician scrubbed out. Side port of sheath attached to Normal Saline flush at KVO to maintain patency. Dr. Zimmerman arrived. Dr. Zimmerman scrubbed in to perform intervention. Sheath upsized to a [address] helenian XB 3.5 guide catheter was inserted over the wire. [place] guidewire was advanced through the guide catheter to lesion in the mid LAD. Inflation Number : 1 Goldy Decker MORALSE 2.75X8 LADY -Lot Number# [id number] EXP: 12/09/2023 was prepped and advanced across the Mid LAD. The stent was deployed at 12 STEPHEN for 0:31 seconds. Stent balloon out over wire. Results checked. Wire out. Guide catheter out. A Suture was successful obtaining hemostatsis at the Right Femoral artery insertion site. Arterial sheath flushed and connected to tranducer and pressure bag with heparinized saline. Post Procedure: Pulses reassessed and unchanged. PERRLA. Strong, equal hand sexer bilaterally. No VTE prophylaxis required. Medication's Wasted: Nitro = 49.8 mcg. Medication's Wasted: Heparin = 4000 units. Medication's Wasted: Other = Versed 1 mg. Total IV fluids: 75 mL. Complications: None. Estimated blood loss: 5mL-10mL. Responsiveness - Normal response to verbal stimuli; alert and oriented, PERRLA. Airway - Unaffected, no intervention required; spontaneous ventilation. Circulation: W/N/L, pulses unchanged. Nausea/Vomiting: No. Procedure completed. Patient transferred by bed to 1st floor. Vital chart was stopped. Access Site Site: Right Radial artery Sheath Size: 6 Fr Hemostasis Method: TR Band Hemostasis Success: Successful Site: Right Femoral artery Sheath Size: 5 Fr Hemostasis Method: Suture Hemostasis Success: Successful Procedure Medications Start: 7:05 AM Stop: 7:05 AM Medication: Fentanyl Amount: 25 mcg Route: I.V. Start: 7:09 AM Stop: 7:09 AM Medication: Versed 1 mg and Fentanyl 25 mcg Amount: 1 Route: I.V. Start: 7:19 AM Stop: 7:19 AM Medication: Nitrogylcerin Amount: 200 mcg Route: I.A. Start: 7:19 AM Stop: 7:19 AM Medication: Verapamil Amount: 5 mg Route: I.A. Start: 7:22 AM Stop: 7:22 AM Medication: Versed Amount: 1 mg Route: I.V. Start: 7:36 AM Stop: 7:36 AM Medication: Fentanyl Amount: 25 mcg Route: I.V. Start: 7:40 AM Stop: 7:40 AM Medication: Fentanyl Amount: 25 mcg Route: I.V. Start: 7:46 AM Stop: 7:46 AM Medication: Heparin Amount: 1500 units Route: I.V. Start: 8:08 AM Stop: 8:08 AM Medication: Versed Amount: 1 mg Route: I.V. Start: 8:22 AM Stop: 8:22 AM Medication: Heparin Amount: 3500 units Route: I.V. Start: 8:22 AM Stop: 8:22 AM Medication: Plavix Amount: 600 mg Route: P.O. I, the attending physician, have reviewed and verified all procedure medications. Yes, all medications given per verbal order History/Risk Factors Hypertension: Yes Dyslipidemia: Yes Peripheral Arterial Disease (PAD): Yes Renal Disease: No Tobacco Use: Former Prior Interventions PCI: No CABG: No Report Signatures Diagnostic Workflow Finalized by Dr Pat Ashby MD [facility] on 07/29/2023 04:32 PM Interventional Workflow Finalized by Dr. Jose Zimmerman MD on 07/29/2023 08:40 AM
[2023-07-29] MEDS: aspirin 325 mg Tablet PO (06:46)
[2023-07-29] MEDS: diphenhydrAMINE 50 mg Capsule PO (06:46)
--- NOTE | 2023-07-29 07:10 | W.PM.OPSUD ---
Surgery/Procedure H&P Update DATE OF PROCEDURE: July 29, 2023 DATE H&P PERFORMED: 07/28/23 H&P UPDATE INFORMATION: I have reviewed H&P completed within last 30 days, I have examined patient prior to procedure and No changes to prior documentation PREOP DIAGNOSIS: ASHD PRIMARY INDICATION FOR PROCEDURE: UAP/ASHD/ Multiple risk factors PLANNED PROCEDURE: Operation Date: 07/29/23 07:00 Proposed Procedures p Cardiac Catheterization with poss PCI(Not Applicable) - Pat Ashby MD PATIENT REASSESSED PRIOR TO SEDATION, WITH NO CHANGE NOTED: Yes PHYSICAL EXAM: alert, oriented x 3, clear to auscultation bilaterally and regular rate & rhythm AIRWAY EVAL/ANESTHESIA PLAN: normal airway, see other exam findings, ASA III, Monitored Anesthesia, Local Anesthesia, Risks, benefits & alternatives of sedation and/or procedure discussed and Patient agrees to continue as planned
--- NOTE | 2023-07-29 08:40 | PC.NURSE ---
Pt arried to CPRU room 4 post cath. Pt alert and oriented X 4. Breathing even and non-labored on room air. Pt denies CP. 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 TR band to right wrist, site asymptomatic. Radial pulse palpable. Right groin has sutured in 6fr sheath connected to pressure bag. Dressing clean and dry, no signs of hematoma. Pt verbalized understanding of bedrest and activity restrictions. call light in reach. Report was called to MIHAI Frausto by MIHAI Hylton.
--- NOTE | 2023-07-29 08:48 | PM.PN ---
Subjective Subjective: Patient is feeling okay. Still has exertional chest pain. No evidence of microinjury so far. No cardiac arrhythmia. Medications: Medication Review Details: Current Medications Acetaminophen (Acetaminophen 325 Mg Tablet) 650 mg PO Q6H PRN PRN Reason: Mild/Mod Pain Or Temp >/= 101 Aspirin (Aspirin 81 Mg Ec Tablet) 81 mg PO DAILY [facility] Atorvastatin Calcium (Atorvastatin 40 Mg Tablet) 20 mg PO DAILY [facility] Buspirone HCl (Buspirone 10 Mg Tablet) 5 mg PO BID [facility] Last Admin: 07/28/23 18:05 Dose: 5 mg Heparin Sodium (Porcine) (Heparin 5,000 Unit/Ml Inj 1 Ml) 0 unit IV PRN PRN; Protocol PRN Reason: Heparin weight-base protocol Last Admin: 07/28/23 19:13 Dose: 5,300 unit Heparin Sodium/Sodium Chloride (Heparin Drip) 25,000 unit in 500 mls @ 0 mls/hr IV .Q0M [facility]; Protocol Last Admin: 07/28/23 19:16 Dose: 14.5 unit/kg/hr, 29.99 mls/hr Sodium Chloride (Sodium Chloride 0.9%) 1,000 mls @ 125 mls/hr IV .Q8H [facility] Last Admin: 07/29/23 06:02 Dose: Not Given Sodium Chloride (Sodium Chloride 0.9%) 1,000 mls @ 50 mls/hr IV .Q20H ONE Stop: 07/29/23 18:00 Last Admin: 07/29/23 01:41 Dose: 50 mls/hr Nitroglycerin (Nitroglycerin 1 Gm/Inch Oint Pkt) 0.5 inch TOPICAL Q6H [facility] Last Admin: 07/29/23 06:02 Dose: Not Given Ondansetron HCl (Ondansetron 2 Mg/Ml Sdv 2 Ml) 4 mg IVP Q8H PRN PRN Reason: vomiting, or N/V if npo Pantoprazole Sodium (Pantoprazole Dr 40 Mg Tablet) 40 mg PO BID [facility] Last Admin: 07/28/23 18:04 Dose: 40 mg Tamsulosin HCl (Tamsulosin 0.4 Mg Capsule) 0.4 mg PO DAILY [facility] Venlafaxine HCl (Venlafaxine Er (24hr) 150 Mg Capsule) 150 mg PO DAILY [facility] Vitals/I&O/Wt Last Vital Signs Temp 98.7 F 07/29/23 03:15 Pulse 81 07/29/23 03:15 Resp 13 07/29/23 03:15 BP 144/75 07/29/23 03:15 Pulse Ox 97 07/29/23 03:15 O2 Del Method Room Air 07/29/23 03:15 07/28/23 07/29/23 07/29/23 22:59 06:59 14:59 Intake Total 0 / 0 1000 / 1000 Output Total 0 / 0 Balance 0 / 0 1000 / 1000 Weight last 48 hrs Weight 228 lb Weight 228 lb Weight 228 lb Physical Exam Narrative: GENERAL: The patient is alert and oriented times three. Not in any acute distress. HEENT: No significant pallor, icterus or lymphadenopathy.Oral cavity: There are no mucous membrane lesions. NECK: Trachea appears to be central. No masses noted. No JVD or thyromegaly appreciated. RESPIRATORY: Chest is symmetrical. No intercostals muscle retraction or any accessory muscle activation. There is no chest wall tenderness. Breath sounds are heard bilaterally. No rales or rhonchi heard. No evidence of any consolidation. BREASTS: Deferred. HEART: The heart sounds are normal. No S3 or S4. No significant murmurs. No pericardial rub ABDOMEN: No vessel pulsations or distention. No tenderness. No organomegaly appreciated. Bowel sounds are normally heard. : Deferred. RECTAL: Deferred. LYMPHATIC: No lymphadenopathy noted in the neck. EXTREMITIES: The peripheral pulses are weak bilaterally. MUSCULOSKELETAL: No acute joint deformities or swelling SKIN: There are no significant rashes or ecchymosis NEUROPSYCHIATRIC: The patient is alert and oriented x3. Appears to be in a good mood. No tremors or rigidity noted. Data 07/29/23 02:23 07/29/23 02:23 Other Labs: Laboratory Last Values WBC 10.85 10^3/uL (3.29-11.43) 07/29/23 02:23 RBC 4.69 10^6/uL (3.85-5.65) 07/29/23 02:23 Hgb 9.70 g/dL (11.27-16.99) L 07/29/23 02:23 Hct 34.4 % (37-53) L 07/29/23 02:23 MCV 73.3 fl (82-101) L 07/29/23 02: MCH 20.7 pg (27-33) L 07/29/23 02: MCHC 28.2 g/dL (30-55) L 07/29/23 02: RDW 23.2 % (12.1-15.1) H 07/29/23 02:23 Plt Count 328 10^3/cmm (157-399) 07/29/23 02:23 MPV 9.4 fL (7.4-10.4) 07/29/23 02:23 Neut % (Auto) 63.3 % 07/29/23 02:23 Lymph % (Auto) 23.9 % 07/29/23 02:23 [place] % (Auto) 10.2 % 07/29/23 02: Eos % (Auto) 1.6 % 07/29/23 02: Baso % (Auto) 0.6 % 07/29/23 02: Neut # (Auto) 6.87 10^3/uL (1.8-7.7) 07/29/23 02: Lymph # (Auto) 2.6 10^3/uL (0.8-4.8) 07/29/23 02:23 [place] # (Auto) 1.1 10^3/uL (0.2-0.9) H 07/29/23 02:23 Eos # (Auto) 0.2 10^3/uL (0.0-0.8) 07/29/23 02: Baso # (Auto) 0.1 10^3/uL (0.0-0.1) 07/29/23 02: Nucleated RBC % (auto) 0 % 07/29/23 02: Nucleated RBCs # 0.0 /100WBC 07/29/23 02:23 APTT 55.4 SECONDS (23.9-36.7) H 07/29/23 02:23 Sodium 139 mmol/L (136-145) 07/29/23 02:23 Potassium 3.6 mmol/L (3.5-5.1) 07/29/23 02:23 Chloride 102 mmol/L (98-107) 07/29/23 02:23 Carbon Dioxide 28 mmol/L (22-29) 07/29/23 02:23 Anion Gap 12.6 (5-19) 07/29/23 02:23 BUN 21 mg/dL (8-23) 07/29/23 02:23 Creatinine 1.4 mg/dL (0.7-1.2) H 07/29/23 02:23 GFR Calculation Not Reportable 07/29/23 02:23 Glucose 112 mg/dL (65-115) 07/29/23 02:23 Calculated Osmolality 292 mOsm/kg (285-295) 07/29/23 02: Calcium 8.7 mg/dL (8.5-10.5) 07/29/23 02:23 Total Bilirubin 0.3 mg/dL (0.15-1.2) 07/29/23 02: AST 21 U/L (0-40) 07/29/23 02: ALT 20 U/L (0-41) 07/29/23 02:23 Alkaline Phosphatase 92 U/L (40-130) 07/29/23 02:23 Troponin T Baseline 20 ng/L (0-15) H 07/28/23 14:55 Troponin T 120 Minute 14.98 ng/L (0-15) 07/28/23 18:22 Delta Troponin T -5.02 ABS# (0-10) L 07/28/23 18:22 Troponin T Hi Sens 6Hr 16.37 ng/L (0-15) H 07/28/23 21:30 Troponin T Hi Sens 6Hr Delta -3.63 ng/L (0-12) L 07/28/23 21:30 Total Protein 6.2 g/dL (6.6-8.7) L 07/29/23 02:23 Albumin 3.4 g/dL (3.5-5.2) L 07/29/23 02:23 Globulin 2.8 g/dL (1.3-4.6) 07/29/23 02: Lipase 29 U/L (13-60) 07/28/23 14:55 A&P Assessment and plan (1) Unstable angina pectoris due to coronary arteriosclerosis: In view of the patient's ongoing symptoms, in order to further evaluate the coronary status, patient requires a cardiac catheterization. The risk of bleeding, hematoma, vascular injury, myocardial infarction, myocardial perforation, malignant cardiac arrhythmias ,CVA, renal failure and other concomitant complications were explained in detail. Patient understood this well and consented to proceed (2) Peripheral arterial occlusive disease: I may go ahead with an arterial duplex of the lower extremities with MEAGAN to further evaluate the peripheral artery disease. Based on the results, further recommendations will be made. (3) Atrial fibrillation, new onset: Patient is currently in sinus rhythm. May continue on the current medications. (4) Anemia: Patient seems to have chronic GI bleed. Source of bleeding is not known at this point. The hemoglobin seems to be improving. Currently has no evidence of any active bleed. Qualifiers: Anemia type: iron deficiency Iron deficiency anemia type: chronic blood loss Qualified Code(s): D50.0 - Iron deficiency anemia secondary to blood loss (chronic) (5) Hypertension: Currently normotensive. May continue on the current medications. Qualifiers: Hypertension type: primary hypertension Qualified Code(s): I10 - Essential (primary) hypertension (6) Hyperlipidemia: May continue on the current medication. Qualifiers: Hyperlipidemia type: mixed hyperlipidemia Qualified Code(s): E78.2 - Mixed hyperlipidemia (7) Acute kidney injury: The BUN/creatinine seems to be improving. 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
[2023-07-29] MEDS: aspirin 81 mg EC Tablet PO (10:07)
[2023-07-29] MEDS: pantoprazole DR 40 mg Tablet PO ×3 (10:07→18:29)
[2023-07-29] MEDS: tamsulosin 0.4 mg Capsule PO (10:07)
[2023-07-29] MEDS: atorvastatin 40 mg Tablet 20 MG PO (10:08)
[2023-07-29] MEDS: venlafaxine ER (24HR) 150 mg Capsule PO (10:08)
[2023-07-29] MEDS: BuSPIRONE 10 mg Tablet 5 MG PO ×2 (10:08→18:30)
[2023-07-29] MEDS: sodium chloride 0.9% 1,000 ML 100 ML IV ×2 (10:15→18:30)
[2023-07-29 11:35] LABS: Partial Thromboplastin Time 31.3 SECONDS (23.9-36.7)
--- NOTE | 2023-07-29 12:15 | P.PN_ITS ---
Subjective 2 Subjective: s/p angiogram ans stenting to mid LAD this morning no current chest pain Medications: Reviewed: Yes Medication Review Details: Current Medications Acetaminophen (Acetaminophen 325 Mg Tablet) 650 mg PO Q6H PRN PRN Reason: Mild/Mod Pain Or Temp >/= 101 Aspirin (Aspirin 81 Mg Ec Tablet) 81 mg PO DAILY [facility] Atorvastatin Calcium (Atorvastatin 40 Mg Tablet) 20 mg PO DAILY [facility] Buspirone HCl (Buspirone 10 Mg Tablet) 5 mg PO BID [facility] Last Admin: 07/28/23 18:05 Dose: 5 mg Heparin Sodium (Porcine) (Heparin 5,000 Unit/Ml Inj 1 Ml) 0 unit IV PRN PRN; Protocol PRN Reason: Heparin weight-base protocol Last Admin: 07/28/23 19:13 Dose: 5,300 unit Heparin Sodium/Sodium Chloride (Heparin Drip) 25,000 unit in 500 mls @ 0 mls/hr IV .Q0M [facility]; Protocol Last Admin: 07/28/23 19:16 Dose: 14.5 unit/kg/hr, 29.99 mls/hr Sodium Chloride (Sodium Chloride 0.9%) 1,000 mls @ 125 mls/hr IV .Q8H [facility] Last Admin: 07/29/23 06:02 Dose: Not Given Sodium Chloride (Sodium Chloride 0.9%) 1,000 mls @ 50 mls/hr IV .Q20H ONE Stop: 07/29/23 18:00 Last Admin: 07/29/23 01:41 Dose: 50 mls/hr Nitroglycerin (Nitroglycerin 1 Gm/Inch Oint Pkt) 0.5 inch TOPICAL Q6H [facility] Last Admin: 07/29/23 06:02 Dose: Not Given Ondansetron HCl (Ondansetron 2 Mg/Ml Sdv 2 Ml) 4 mg IVP Q8H PRN PRN Reason: vomiting, or N/V if npo Pantoprazole Sodium (Pantoprazole Dr 40 Mg Tablet) 40 mg PO BID [facility] Last Admin: 07/28/23 18:04 Dose: 40 mg Tamsulosin HCl (Tamsulosin 0.4 Mg Capsule) 0.4 mg PO DAILY [facility] Venlafaxine HCl (Venlafaxine Er (24hr) 150 Mg Capsule) 150 mg PO DAILY [facility] Vitals/I&O/Wt Last Vital Signs Temp 98.7 F 07/29/23 03:15 Pulse 77 07/29/23 11:00 Resp 12 07/29/23 11:00 BP 154/85 07/29/23 11:00 Pulse Ox 96 07/29/23 11:00 O2 Del Method Room Air 07/29/23 09:36 07/28/23 07/29/23 07/29/23 22:59 06:59 14:59 Intake Total 0 / 0 1000 / 1000 120 / 120 Output Total 0 / 0 Balance 0 / 0 1000 / 1000 120 / 120 Weight last 48 hrs Weight 103.419 kg Weight 103.419 kg Weight 103.419 kg Physical Exam 2 Narrative: General: No acute distress, AO x3 HEENT: PERRLA, pupils bilaterally equal and reactive, pallors not present Chest: Normal vesicular breath sounds, no added sounds, equal good air entry bilaterally CVS: S1-S2 regular, no murmurs, no tachycardia, no gallops, no rubs Abdomen: Soft, nontender, no organomegaly, bowel sounds present Neuro: No focal deficits, no facial deformity, AO x3, power 5/5 in all limbs Data 07/29/23 02:23 07/29/23 02:23 A&P Assessment and plan (1) Unstable angina pectoris due to coronary arteriosclerosis: Status post angiogram this morning. Stenting to mid LAD. Currently chest pain is resolved. Plan for continued postprocedure monitoring today. Will check hemoglobin and creatinine again with a.m. labs. Hemoglobin slightly down to 9.7. Suspect this may be dilutional. Creatinine improved today, will recheck in a.m. with continued hydration to ensure downtrend. Urine output is currently adequate. He has put out more than 700 cc since admission. Plan Status post angiogram and stenting today. Attestations 2 Medical Necessity Statement*: Continued admission, repeat creatinine and hemoglobin check with a.m. labs. Coding Level of Care Code Acute Code for [facility] Diagnoses Unstable angina pectoris due to coronary arteriosclerosis I25.110
[2023-07-30] VITALS (8 sets, daily range): BP systolic 139–164; BP diastolic 80–87; PULSE 75–84; RESP 14–19; TEMP 36.7–37.2; O2SAT 95–97; BMI 32.7
[2023-07-30 03:59] LABS: Basophils # 0.1 10^3/uL (0.0-0.1); Eosinophils # 0.2 10^3/uL (0.0-0.8); Eosinophils % 3.2 %; Hematocrit 33.3 % (37-53); Lymphocytes # 1.7 10^3/uL (0.8-4.8); Lymphocytes % 24.8 %; Mean Corpuscular HGB Conc 27.9 g/dL (30-55); Mean Corpuscular Hemoglobin 20.7 pg (27-33); Mean Platelet Volume 9.4 fL (7.4-10.4); Monocytes # 0.7 10^3/uL (0.2-0.9); Monocytes % 10.6 %; Neutrophils # 4.19 10^3/uL (1.8-7.7); Nucleated Red Blood Cells % 0 %; Platelet Count 266 10^3/cmm (157-399); Red Cell Distribution Width 22.9 % (12.1-15.1); White Blood Count 6.98 10^3/uL (3.29-11.43)
[2023-07-30 05:58] LABS: Alanine Aminotransferase 26 U/L (0-41); Albumin Level 3.3 g/dL (3.5-5.2); Alkaline Phosphatase 90 U/L (40-130); Anion Gap 12.8 (5-19); Aspartate Amino Transferase 22 U/L (0-40); Blood Urea Nitrogen 19 mg/dL (8-23); Calcium 8.3 mg/dL (8.5-10.5); Carbon Dioxide 27 mmol/L (22-29); Chloride 106 mmol/L (98-107); Globulin 2.5 g/dL (1.3-4.6); Glucose 95 mg/dL (65-115); Osmolality Calculated 296 mOsm/kg (285-295); Potassium 3.8 mmol/L (3.5-5.1); Sodium 142 mmol/L (136-145); Total Bilirubin 0.2 mg/dL (0.15-1.2); Total Protein 5.8 g/dL (6.6-8.7)
[2023-07-30] MEDS: aspirin 81 mg EC Tablet PO (08:25)
[2023-07-30] MEDS: BuSPIRONE 10 mg Tablet 5 MG PO (08:26)
[2023-07-30] MEDS: tamsulosin 0.4 mg Capsule PO (08:26)
[2023-07-30] MEDS: venlafaxine ER (24HR) 150 mg Capsule PO (08:26)
[2023-07-30] MEDS: clopidogrel 75 mg Tablet PO (08:26)
[2023-07-30] MEDS: atorvastatin 40 mg Tablet 20 MG PO (08:26)
--- NOTE | 2023-07-30 12:20 | P.DS_ITS ---
Discharge Providers Date of Admission: 07/28/23 15:51 Date of Discharge: July 30, 2023 Attending Provider at Admission: Maggi Rees MD Attending Provider at Discharge: Maggi Rees MD Primary Care Provider: SANTHOSH Lr Diagnoses at Discharge Discharge Diagnosis (1) Unstable angina pectoris due to coronary arteriosclerosis: Status: Acute Reason for Visit Reason for Visit: chest pain Hospital Course Hospital Course Mr. Lee is a 73-year-old male who presented to the hospital with ongoing chest pain. Just recently he had been attempted to have a stress test but developed chest pain during the procedure and so procedure was aborted. Characteristics of his pain were very concerning for unstable angina. He underwent angiogram with close monitoring of his creatinine. He received a drug-eluting stent into the LAD on 07/29/2023. Tolerated the procedure well. Chest pain-free since the procedure. He is recommended to be discharged today on dual antiplatelet therapy. Follow-up with cardiology in 1 week. 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 Routine Exams 07/29/23 06:20 Completed XR chest 1V portable [id number] Stat Exams 07/28/23 14:44 Completed Pending at discharge Category Date Time Status Platelet Count Q2D Lab 08/01/23 04:00 Ordered Laboratory Results WBC 6.98 10^3/uL (3.29-11.43) 07/30/23 03:35 RBC 4.50 10^6/uL (3.85-5.65) 07/30/23 03:35 Hgb 9.30 g/dL (11.27-16.99) L 07/30/23 03:35 Hct 33.3 % (37-53) L 07/30/23 03:35 MCV 74.0 fl (82-101) L 07/30/23 03:35 MCH 20.7 pg (27-33) L 07/30/23 03:35 MCHC 27.9 g/dL (30-55) L 07/30/23 03:35 RDW 22.9 % (12.1-15.1) H 07/30/23 03:35 Plt Count 266 10^3/cmm (157-399) 07/30/23 03:35 MPV 9.4 fL (7.4-10.4) 07/30/23 03:35 Neut % (Auto) 60.0 % 07/30/23 03:35 Lymph % (Auto) 24.8 % 07/30/23 03:35 [place] % (Auto) 10.6 % 07/30/23 03:35 Eos % (Auto) 3.2 % 07/30/23 03:35 Baso % (Auto) 1.0 % 07/30/23 03:35 Neut # (Auto) 4.19 10^3/uL (1.8-7.7) 07/30/23 03:35 Lymph # (Auto) 1.7 10^3/uL (0.8-4.8) 07/30/23 03:35 [place] # (Auto) 0.7 10^3/uL (0.2-0.9) 07/30/23 03:35 Eos # (Auto) 0.2 10^3/uL (0.0-0.8) 07/30/23 03:35 Baso # (Auto) 0.1 10^3/uL (0.0-0.1) 07/30/23 03:35 Nucleated RBC % (auto) 0 % 07/30/23 03:35 Nucleated RBCs # 0.0 /100WBC 07/30/23 03:35 APTT 31.3 SECONDS (23.9-36.7) 07/29/23 11:16 Sodium 142 mmol/L (136-145) 07/30/23 03:35 Potassium 3.8 mmol/L (3.5-5.1) 07/30/23 03:35 Chloride 106 mmol/L (98-107) 07/30/23 03:35 Carbon Dioxide 27 mmol/L (22-29) 07/30/23 03:35 Anion Gap 12.8 (5-19) 07/30/23 03:35 BUN 19 mg/dL (8-23) 07/30/23 03:35 Creatinine 1.3 mg/dL (0.7-1.2) H 07/30/23 03:35 GFR Calculation Not Reportable 07/30/23 03:35 Glucose 95 mg/dL (65-115) 07/30/23 03:35 Calculated Osmolality 296 mOsm/kg (285-295) H 07/30/23 03:35 Calcium 8.3 mg/dL (8.5-10.5) L 07/30/23 03:35 Total Bilirubin 0.2 mg/dL (0.15-1.2) 07/30/23 03:35 AST 22 U/L (0-40) 07/30/23 03:35 ALT 26 U/L (0-41) 07/30/23 03:35 Alkaline Phosphatase 90 U/L (40-130) 07/30/23 03:35 Troponin T Baseline 20 ng/L (0-15) H 07/28/23 14:55 Troponin T 120 Minute 14.98 ng/L (0-15) 07/28/23 18:22 Delta Troponin T -5.02 ABS# (0-10) L 07/28/23 18:22 Troponin T Hi Sens 6Hr 16.37 ng/L (0-15) H 07/28/23 21:30 Troponin T Hi Sens 6Hr Delta -3.63 ng/L (0-12) L 07/28/23 21:30 Total Protein 5.8 g/dL (6.6-8.7) L 07/30/23 03:35 Albumin 3.3 g/dL (3.5-5.2) L 07/30/23 03:35 Globulin 2.5 g/dL (1.3-4.6) 07/30/23 03:35 Lipase 29 U/L (13-60) 07/28/23 14:55 Vitals Last Vital Signs Temp 99.0 F 07/30/23 11:43 Pulse 79 07/30/23 11:43 Resp 14 07/30/23 08:00 BP 157/84 07/30/23 11:43 Pulse Ox 97 07/30/23 11:43 O2 Del Method Room Air 07/30/23 11:43 Discharge Plan Discharge Patient Disposition: Home Condition: Stable Prescriptions: New clopidogrel 75 mg Tablet 75 mg PO DAILY 30 Days Qty: 30 0RF Continued isosorbide mononitrate 30 mg tablet extended release 24 hr 30 mg PO BID Qty: 180 0RF tamsulosin 0.4 mg capsule 0.4 mg PO DAILY Qty: 90 3RF atorvastatin 20 mg tablet 20 mg PO DAILY atenolol 100 mg tablet 100 mg PO DAILY buspirone 5 mg tablet 5 mg PO BID ascorbic acid (vitamin C) [Vitamin C] 1,000 mg Tablet 1,000 mg PO DAILY venlafaxine 150 mg Tablet Extended Release 24 Hr 150 mg PO DAILY Fish Oil 120-180-500 mg Capsule 1 cap PO DAILY aspirin 81 mg Capsule 81 mg PO DAILY amlodipine 5 mg Tablet 5 mg PO DAILY Qty: 90 0RF nitroglycerin 0.4 mg Tablet, Sublingual 0.4 mg sublingual Q5M PRN (Reason: Chest Pain) Qty: 25 0RF pantoprazole 40 mg tablet,delayed release (DR/EC) 40 mg PO BID iron 325 mg (65 mg iron) tablet 325 mg PO DAILY Held lisinopril-hydrochlorothiazide 20-25 mg tablet 1 tab PO BID Hold Instructions: Resume on 08/06/23. hold until cardiology follow up Discharge Orders: Discharge Order (Routine); Ordered 07/30/23 Ordered By: Maggi Rees Referrals: Ijeoma Alexander FNP [Primary Care Provider] - 08/18/23 11:00 am Lea Martinez FNP [Nurse Practitioner] - 08/05/23 9:30 am Patient Instructions: Coronary Angioplasty (DC), Opioid Safety, Post Angiogram Home Care Instructions Activity Restrictions/Additional Instructions: Hold lisinopril until you follow-up with cardiology as outpatient. This is to ensure that your kidney function is improving in 1 week. Continue Imdur for the next month. Discharge Attestations Time Spent in Discharge Care*: greater than 30 min Quality Metrics Clinical Quality Measures [ No reported AMI, CVA or VTE this stay] Coding Level of Care Code Acute Code for [facility] Diagnoses Unstable angina pectoris due to coronary arteriosclerosis I25.110
--- NOTE | 2023-07-30 13:27 | P.PN_ITS ---
Subjective 2 Subjective: Patient underwent a cardiac catheterization yesterday. Was found to have critical lesion in the mid LAD. Underwent PCI of this lesion. Currently remaining stable with no recurrence of chest pain. Medications: Medication Review Details: Current Medications Acetaminophen (Acetaminophen 325 Mg Tablet) 650 mg PO Q6H PRN PRN Reason: Mild/Mod Pain Or Temp >/= 101 Aspirin (Aspirin 81 Mg Ec Tablet) 81 mg PO DAILY [facility] Last Admin: 07/30/23 08:25 Dose: 81 mg Atorvastatin Calcium (Atorvastatin 40 Mg Tablet) 20 mg PO DAILY [facility] Last Admin: 07/30/23 08:26 Dose: 20 mg Buspirone HCl (Buspirone 10 Mg Tablet) 5 mg PO BID [facility] Last Admin: 07/30/23 08:26 Dose: 5 mg Clopidogrel Bisulfate (Clopidogrel 75 Mg Tablet) 75 mg PO DAILY [facility] Last Admin: 07/30/23 08:26 Dose: 75 mg Fentanyl (Fentanyl 50 Mcg/Ml Inj 2ml) 50 mcg IVP PRN PRN PRN Reason: sheath pull Sodium Chloride (Sodium Chloride 0.9%) 1,000 mls @ 100 mls/hr IV .Q10H [facility] Last Admin: 07/30/23 05:45 Dose: Not Given Nitroglycerin (Nitroglycerin 0.4 Mg Sublingual Tablet) 0.4 mg SUBLINGUAL Q5M PRN PRN Reason: CHEST PAIN Ondansetron HCl (Ondansetron 2 Mg/Ml Sdv 2 Ml) 4 mg IVP Q8H PRN PRN Reason: vomiting, or N/V if npo Pantoprazole Sodium (Pantoprazole Dr 40 Mg Tablet) 40 mg PO BID [facility] Last Admin: 07/29/23 18:29 Dose: 40 mg Tamsulosin HCl (Tamsulosin 0.4 Mg Capsule) 0.4 mg PO DAILY [facility] Last Admin: 07/30/23 08:26 Dose: 0.4 mg Venlafaxine HCl (Venlafaxine Er (24hr) 150 Mg Capsule) 150 mg PO DAILY [facility] Last Admin: 07/30/23 08:26 Dose: 150 mg Vitals/I&O/Wt Last Vital Signs Temp 99.0 F 07/30/23 11:43 Pulse 79 07/30/23 11:43 Resp 14 07/30/23 08:00 BP 157/84 07/30/23 11:43 Pulse Ox 97 07/30/23 11:43 O2 Del Method Room Air 07/30/23 11:43 07/29/23 07/30/23 07/30/23 22:59 06:59 14:59 Intake Total 1065 / 1545 1000 / 2545 720 / 720 Balance 1065 / 1545 1000 / 2545 720 / 720 Weight last 48 hrs Weight 228 lb Weight 228 lb Weight 228 lb Weight 228 lb Physical Exam 2 Narrative: GENERAL: The patient is alert and oriented times three. Not in any acute distress. HEENT: No significant pallor, icterus or lymphadenopathy.Oral cavity: There are no mucous membrane lesions. NECK: Trachea appears to be central. No masses noted. No JVD or thyromegaly appreciated. RESPIRATORY: Chest is symmetrical. No intercostals muscle retraction or any accessory muscle activation. There is no chest wall tenderness. Breath sounds are heard bilaterally. No rales or rhonchi heard. No evidence of any consolidation. BREASTS: Deferred. HEART: The heart sounds are normal. No S3 or S4. No significant murmurs. No pericardial rub ABDOMEN: No vessel pulsations or distention. No tenderness. No organomegaly appreciated. Bowel sounds are normally heard. : Deferred. RECTAL: Deferred. LYMPHATIC: No lymphadenopathy noted in the neck. EXTREMITIES: No edema or cyanosis. No clubbing. No hematoma bleeding at the arterial puncture sites in the right wrist and right groin MUSCULOSKELETAL: No acute joint deformities or swelling SKIN: There are no significant rashes or ecchymosis NEUROPSYCHIATRIC: The patient is alert and oriented x3. Appears to be in a good mood. No tremors or rigidity noted. Data 07/30/23 03:35 07/30/23 03:35 Other Labs: Laboratory Last Values WBC 6.98 10^3/uL (3.29-11.43) 07/30/23 03:35 RBC 4.50 10^6/uL (3.85-5.65) 07/30/23 03:35 Hgb 9.30 g/dL (11.27-16.99) L 07/30/23 03:35 Hct 33.3 % (37-53) L 07/30/23 03:35 MCV 74.0 fl (82-101) L 07/30/23 03:35 MCH 20.7 pg (27-33) L 07/30/23 03:35 MCHC 27.9 g/dL (30-55) L 07/30/23 03:35 RDW 22.9 % (12.1-15.1) H 07/30/23 03:35 Plt Count 266 10^3/cmm (157-399) 07/30/23 03:35 MPV 9.4 fL (7.4-10.4) 07/30/23 03:35 Neut % (Auto) 60.0 % 07/30/23 03:35 Lymph % (Auto) 24.8 % 07/30/23 03:35 [place] % (Auto) 10.6 % 07/30/23 03:35 Eos % (Auto) 3.2 % 07/30/23 03:35 Baso % (Auto) 1.0 % 07/30/23 03:35 Neut # (Auto) 4.19 10^3/uL (1.8-7.7) 07/30/23 03:35 Lymph # (Auto) 1.7 10^3/uL (0.8-4.8) 07/30/23 03:35 [place] # (Auto) 0.7 10^3/uL (0.2-0.9) 07/30/23 03:35 Eos # (Auto) 0.2 10^3/uL (0.0-0.8) 07/30/23 03:35 Baso # (Auto) 0.1 10^3/uL (0.0-0.1) 07/30/23 03:35 Nucleated RBC % (auto) 0 % 07/30/23 03:35 Nucleated RBCs # 0.0 /100WBC 07/30/23 03:35 APTT 31.3 SECONDS (23.9-36.7) 07/29/23 11:16 Sodium 142 mmol/L (136-145) 07/30/23 03:35 Potassium 3.8 mmol/L (3.5-5.1) 07/30/23 03:35 Chloride 106 mmol/L (98-107) 07/30/23 03:35 Carbon Dioxide 27 mmol/L (22-29) 07/30/23 03:35 Anion Gap 12.8 (5-19) 07/30/23 03:35 BUN 19 mg/dL (8-23) 07/30/23 03:35 Creatinine 1.3 mg/dL (0.7-1.2) H 07/30/23 03:35 GFR Calculation Not Reportable 07/30/23 03:35 Glucose 95 mg/dL (65-115) 07/30/23 03:35 Calculated Osmolality 296 mOsm/kg (285-295) H 07/30/23 03:35 Calcium 8.3 mg/dL (8.5-10.5) L 07/30/23 03:35 Total Bilirubin 0.2 mg/dL (0.15-1.2) 07/30/23 03:35 AST 22 U/L (0-40) 07/30/23 03:35 ALT 26 U/L (0-41) 07/30/23 03:35 Alkaline Phosphatase 90 U/L (40-130) 07/30/23 03:35 Troponin T Baseline 20 ng/L (0-15) H 07/28/23 14:55 Troponin T 120 Minute 14.98 ng/L (0-15) 07/28/23 18:22 Delta Troponin T -5.02 ABS# (0-10) L 07/28/23 18:22 Troponin T Hi Sens 6Hr 16.37 ng/L (0-15) H 07/28/23 21:30 Troponin T Hi Sens 6Hr Delta -3.63 ng/L (0-12) L 07/28/23 21:30 Total Protein 5.8 g/dL (6.6-8.7) L 07/30/23 03:35 Albumin 3.3 g/dL (3.5-5.2) L 07/30/23 03:35 Globulin 2.5 g/dL (1.3-4.6) 07/30/23 03:35 Lipase 29 U/L (13-60) 07/28/23 14:55 A&P Assessment and plan (1) Unstable angina pectoris due to coronary arteriosclerosis: Status postcardiac catheterization; status post PCI of the LAD, currently stable (2) Peripheral arterial occlusive disease: The Doppler study still pending. May consider doing the duplex examination as an outpatient (3) Atrial fibrillation, new onset: Patient is currently in sinus rhythm. May continue on the current medications. (4) Anemia: The hemoglobin is fairly stable. Qualifiers: Anemia type: iron deficiency Iron deficiency anemia type: chronic blood loss Qualified Code(s): D50.0 - Iron deficiency anemia secondary to blood loss (chronic) (5) Hypertension: Currently normotensive. May continue on the current medications. Qualifiers: Hypertension type: primary hypertension Qualified Code(s): I10 - Essential (primary) hypertension (6) Hyperlipidemia: May continue on the current medication. Qualifiers: Hyperlipidemia type: mixed hyperlipidemia Qualified Code(s): E78.2 - Mixed hyperlipidemia (7) Acute kidney injury: The BUN/creatinine seems to be improving. Plan The patient may continue on the current medications including aspirin and Plavix. May hold off on the oral anticoagulant. If the patient continues remain stable, may be discharged home today May continue the isosorbide for the time being Appointment at the [facility] to be seen by the nurse practitioner in 1 week. Appointment with me in the office in a month Attestations 2 Medical Necessity Statement*: Possible discharge home today Coding Level of Care Code 46994 Diagnoses Unstable angina pectoris due to coronary arteriosclerosis I25.110 Peripheral arterial occlusive disease I77.9 Atrial fibrillation, new onset I48.91 Iron deficiency anemia due to chronic blood loss D50.0 Anemia type: iron deficiency Iron deficiency anemia type: chronic blood loss Primary hypertension I10 Hypertension type: primary hypertension Mixed hyperlipidemia E78.2 Hyperlipidemia type: mixed hyperlipidemia Acute kidney injury N17.9
--- NOTE | 2023-07-30 14:46 | PC.NURSE ---
Discharge Note Patient discharged to home via POV accompanied by spouse. Discharge instructions reviewed with patient and/or dealer compliance representative. Mobile pharmacy medications and/or prescriptions provided. Belongings/home medications returned.
== END 2023-07-30 14:54 | disposition home or self-care (01) | DRG 322 ==
LOC: ER 15:24 → CSU 19:00
PROVIDERS: Internal Medicine Cardiovascular Disease; Admitting Provider Student in an Organized Health Care Education/Training Program; Emergency Provider Emergency Medicine; PCP Nurse Practitioner Family; Visit Provider Student in an Organized Health Care Education/Training Program
PROC: 027034Z Dilation of Coronary Artery, One Artery with Drug-eluting Intraluminal Device, Percutaneous Approach (ICD-10-PCS; 2023-07-29 07:00)
DX: I25.110 Atherosclerotic heart disease of native coronary artery with unstable angina pectoris (principal); I10 Essential (primary) hypertension; E78.2 Mixed hyperlipidemia; I48.91 Unspecified atrial fibrillation; F17.220 Nicotine dependence, chewing tobacco, uncomplicated; Z82.49 Family history of ischemic heart disease and other diseases of the circulatory system; Z79.82 Long term (current) use of aspirin; Z88.0 Allergy status to penicillin; N40.1 Benign prostatic hyperplasia with lower urinary tract symptoms; Z87.440 Personal history of urinary (tract) infections; Z86.73 Personal history of transient ischemic attack (TIA), and cerebral infarction without residual deficits; I73.9 Peripheral vascular disease, unspecified; D50.0 Iron deficiency anemia secondary to blood loss (chronic)
CPT/HCPCS: 36415; 71045; 80048; 80053; 83690; 84484; 85025; 85347; 85730; 93005; 93458; 96361; 96365; 96376; 99152; 99153; 99214; 99285; C1769; C1874; C1887; C1894; C9600; G0378; J1644; J2250; J3010; J3490; J7030; Q0163; Q9967

== ENCOUNTER → 2023-08-05 09:12 | Outpatient (BNVA) | payer MEDICARE, SELFPAY | PROVIDERS: PCP Nurse Practitioner Family; Visit Provider Nurse Practitioner Family | DX: I25.10 Atherosclerotic heart disease of native coronary artery without angina pectoris (principal); Z87.891 Personal history of nicotine dependence; I10 Essential (primary) hypertension | CPT/HCPCS: 99213 ==

== ENCOUNTER → 2023-09-01 13:40 | Outpatient (BNVA) | payer MEDICARE, SELFPAY | PROVIDERS: PCP Nurse Practitioner Family; Visit Provider Internal Medicine Cardiovascular Disease | DX: I25.10 Atherosclerotic heart disease of native coronary artery without angina pectoris (principal); I10 Essential (primary) hypertension; E78.2 Mixed hyperlipidemia; I48.91 Unspecified atrial fibrillation; I77.9 Disorder of arteries and arterioles, unspecified; Z87.891 Personal history of nicotine dependence | CPT/HCPCS: 99214 ==

== ENCOUNTER 2023-09-11 14:55 | Outpatient (CLI) | payer MEDICARE, SELFPAY ==
--- NOTE | 2023-09-11 15:45 | USCV_ITS ---
Edi Chawla Age: 73 Gender: M : 1950 Exam Date: 09/11/2023 16:04 Ordering Phys: Pat Ashby MD ([email or web address]) Technologist: Rolo Valverde [place] [facility] [place] Risk Factors: Previous Vascular Surgery: RIGHT LEFT BP: 116.0 / 84.00 BP: 119.0/ 70.00 0 0 Waveform Velocity (cm/s) Velocity (cm/s) Waveform Triphasic 124.6 Iliac Prox 72.3 Triphasic Triphasic 131.5 Iliac Mid 69.0 Triphasic Triphasic 147.2 Iliac Distal 69.0 Triphasic Triphasic 126.2 INTERNATIONAL RELATIONS PROFESSOR 99.9 Triphasic Triphasic 86.8 SFA Prox 87.2 Triphasic Triphasic 90.6 SFA Mid 90.7 Triphasic Triphasic 100.8 SFA Dist 90.7 Triphasic Triphasic 84.6 POP 73.0 Triphasic Triphasic 70.9 WEB [employer]ESS ROLL TENDER 49.7 Biphasic Biphasic 38.5 DPA 84.7 Biphasic 1.4 MEAGAN 1.3 FINDINGS Mild diffuse plaques in the iliac, femoral and popliteal arteries bilaterally Resting MEAGAN 1.4 on the right side and 1.3 on the left side. Normal/near normal arterial Doppler waveforms and velocities CONCLUSIONS Normal /supranormal resting ABIs bilaterally Mild diffuse plaques in the iliac, femoral and popliteal arteries Nosignificant arterial obstruction, based on the above findings. No similar previous studies are available for comparison Dr Pat Ashby MD [facility] (Electronically Signed) Final Date: 11 September 2023 18:26 S
== END 2023-09-11 14:56 | disposition home or self-care (01) ==
LOC: RAD 14:55
PROVIDERS: PCP Nurse Practitioner Family; Visit Provider Internal Medicine Cardiovascular Disease
DX: I70.203 Unspecified atherosclerosis of native arteries of extremities, bilateral legs (principal)
CPT/HCPCS: 93925

== ENCOUNTER 2023-10-05 12:31 | Inpatient (IN) | payer MEDICARE, SELFPAY ==
[2023-10-05] VITALS (17 sets, daily range): BP systolic 68–122; BP diastolic 35–79; PULSE 48–86; RESP 15–22; TEMP 35.9–36.8; O2SAT 94–99; BMI 36.5
--- NOTE | 2023-10-05 12:33 | ED_ITS ---
HPI - Syncope 2 General: Chief Complaint: Syncope Stated Complaint: syncope Time Seen by Provider: 10/05/23 12:33 History of Present Illness: 73-year-old male presents to the emergen cy department after having a syncopal episode. He states that in July 2023 he had a stent placed. He is on anticoagulation. He states he was going to the shop when he stood up from a chair states he felt like he got lightheaded and passed completely out. He states this happened on 2 separate occasions today and he is also felt nauseated and weak throughout the day. He states that he is not a diabetic but the bystanders had him eat candy in case his sugar was low. Initial blood glucose via EMS was 247. He denies chest pain or shortness of breath. He states that if he attempts to stand up he feels more dizzy and lightheaded. Patient has had coronary artery stent placed in July 2023 and is currently taking atenolol 100 mg p.o. daily, lisinopril/hydrochlorothiazide, isosorbide mononitrate, and amlodipine as well as tamsulosin. Associated symptoms: Reports nausea Review of Systems 2 General: Reports: 10 or more systems reviewed and unremarkable except in HPI and below GI: Reports: nausea Neuro: Reports: frequent falls and dizziness PFSH ED 2 PFSH: Medical History Atherosclerosis of [place] coronary artery without angina pectoris Testosterone deficiency BPH loc w urin obs/LUTS History of recurrent UTI (urinary tract infection) Hyperlipidemia Hypertension History of CVA (cerebrovascular accident) Surgical History History of right shoulder replacement History of ankle surgery History of bladder surgery Family History Father , at age 63 CAD (coronary artery disease) Diabetes Mother , at age 85 CAD (coronary artery disease) Social History Smoking and tobacco/nicotine status: former use of tobacco/nicotine (Chew tobacco) Alcohol intake: never Household members: spouse Marital status: Current occupational status: employed and retired Physical Exam 2 Narrative: EXAM NARRATIVE: Constitutional: the patient appears well nourished and with normal development. Vital signs reviewed as documented. HENMT: Normocephalic, atraumatic. External ears normal appearance without drainage. Nose without drainage, normal appearance. Mucus membranes moist. Neck is supple, No jugular venous distension, trachea is midline, no appreciable carotid bruits. No lymphadenopathy. No meningeal signs. Flexion, extension and lateral rotation is without pain. Eyes: Pupils are equal, round, reactive to light and accommodation. No scleral icterus. Extra-ocular movement are intact. Thorax is symmetrical and with equal rise and fall with respirations. Resp: Lungs are clear to auscultation. No wheezes, rales, crackles or ronchi at present. Cardio: Sinus bradycardia, positive S1, S2. No appreciable murmurs, rubs or gallops. GI: Abdominal exam reveals normal bowel sounds to all quadrants. No organomegaly. No obvious palpable masses noted. No hepatomegally appreciated. Soft, non-tender to palpation. Extremity: Extremities are non-edematous and both femoral and pedal pulses are 2+ and equal bilaterally. Moves all extremities well, sensation in all extremities. Neuro: Alert and oriented x4, person, place, time and situation. Cranial nerves II through XII are grossly intact, there is no focal neurological deficits that I can appreciate at present. Orthostatic hypotension noted. Motor strength in the upper and lower extremities are equal and bilateral 5/5. Psych: Cooperative, calm, normal thought process, appropriate judgment. Skin: No lesions, rashes. No gross abnormalities noted. Back: Symmetrical, no obvious deformity, No CVA tenderness Course 2 Vital Signs: Vital signs: Vital Signs Temperature 97.8 F 10/05/23 12:34 Pulse Rate 53 L 10/05/23 16:00 Respiratory Rate 15 10/05/23 12:34 Blood Pressure 106/64 10/05/23 16:00 Pulse Oximetry 99 10/05/23 16:00 Oxygen Delivery Me thod Room Air 10/05/23 15:30 MDM - Syncope Medical Decision Making Physical exam completed and documented I will obtain CBC CMP CT scan of his head given the patient's syncopal episode given his cardiac history I will obtain a twelve-lead EKG and serial cardiac enzymes. After review of the patient's medications it does appear that he is on atenolol 100 mg as well as amlodipine, lisinopril, and hydrochlorothiazide. I will provide the patient normal saline IV fluid bolus and also glucagon and concerns for beta-facundo toxicity/excess. Medical Records I reviewed the patient's medical records. Lab Data I reviewed the patient's lab results. 10/05/23 12:47 10/05/23 12:47 Radiology Impressions Chest X-Ray 10/05/23 12:34 IMPRESSION: No acute findings. Laboratory Results WBC 11.72 10^3/uL (3.29-11.43) H 10/05/23 12:47 RBC 5.13 10^6/uL (3.85-5.65) 10/05/23 12:47 Hgb 11.10 g/dL (11.27-16.99) L 10/05/23 12:47 Hct 38.9 % (37-53) 10/05/23 12:47 MCV 75.8 fl (82-101) L 10/05/23 12:47 MCH 21.6 pg (27-33) L 10/05/23 12:47 MCHC 28.5 g/dL (30-55) L 10/05/23 12:47 RDW 16.6 % (12.1-15.1) H 10/05/23 12:47 Plt Count 301 10^3/cmm (157-399) 10/05/23 12:47 MPV 9.3 fL (7.4-10.4) 10/05/23 12:47 Neut % (Auto) 83.4 % 10/05/23 12:47 Lymph % (Auto) 10.5 % 10/05/23 12:47 [place] % (Auto) 4.1 % 10/05/23 12:47 Eos % (Auto) 0.8 % 10/05/23 12:47 Baso % (Auto) 0.7 % 10/05/23 12:47 Neut # (Auto) 9.78 10^3/uL (1.8-7.7) H 10/05/23 12:47 Lymph # (Auto) 1.2 10^3/uL (0.8-4.8) 10/05/23 12:47 [place] # (Auto) 0.5 10^3/uL (0.2-0.9) 10/05/23 12:47 Eos # (Auto) 0.1 10^3/uL (0.0-0.8) 10/05/23 12:47 Baso # (Auto) 0.1 10^3/uL (0.0-0.1) 10/05/23 12:47 Nucleated RBC % (auto) 0 % 10/05/23 12:47 Nucleated RBCs # 0.0 /100WBC 10/05/23 12:47 PT 14.00 SECONDS (12.1-14.9) 10/05/23 12:47 INR 1.05 (0.8-1.2) 10/05/23 12:47 APTT 24.3 SECONDS (23.9-36.7) 10/05/23 12:47 Sodium 134 mmol/L (136-145) L 10/05/23 12:47 Potassium 4.1 mmol/L (3.5-5.1) 10/05/23 12:47 Chloride 94 mmol/L (98-107) L 10/05/23 12:47 Carbon Dioxide 27 mmol/L (22-29) 10/05/23 12:47 Anion Gap 17.1 (5-19) 10/05/23 12:47 BUN 20 mg/dL (8-23) 10/05/23 12:47 Creatinine 1.9 mg/dL (0.7-1.2) H 10/05/23 12:47 GFR Calculation Not Reportable 10/05/23 12:47 Glucose 267 mg/dL (65-115) H 10/05/23 12:47 POC Glucose 136 mg/dL (70-110) H 10/05/23 15:36 Calculated Osmolality 290 mOsm/kg (285-295) 10/05/23 12:47 Calcium 8.5 mg/dL (8.5-10.5) 10/05/23 12:47 Magnesium 2.4 mg/dL (1.7-2.3) H 10/05/23 12:47 Total Bilirubin 0.5 mg/dL (0.15-1.2) 10/05/23 12:47 AST 15 U/L (0-40) 10/05/23 12:47 ALT 15 U/L (0-41) 10/05/23 12:47 Alkaline Phosphatase 101 U/L (40-130) 10/05/23 12:47 Troponin T Baseline 14 ng/L (0-15) 10/05/23 12:47 Troponin T 120 Minute 11.85 ng/L (0-15) 10/05/23 14:15 Delta Troponin T -2.15 ABS# (0-10) L 10/05/23 14:15 NT-Pro-B Natriuret Pep 1036 pg/mL (0-125) H 10/05/23 12:47 Total Protein 6.8 g/dL (6.6-8.7) 10/05/23 12:47 Albumin 4.0 g/dL (3.5-5.2) 10/05/23 12:47 Globulin 2.8 g/dL (1.3-4.6) 10/05/23 12:47 Procalcitonin 0.18 ng/mL (0-0.5) 10/05/23 12:47 All radiology interpretation(s) finalized by discharge EKG Data EKG 1: Interpretation: Twelve-lead EKG obtained at 1239 reviewed at 1241 demonstrates sinus bradycardia with a ventricular rate of 46 bpm, CT interval 152, QRS duration 88, QT 498 QTc 456. At present there is no ST elevation or depression to demonstrate acute ischemia or infarction. Critical Care Time 2 Critical Care Time: Critical Care Time: Yes Total Critical Care Time: 60 Attestation: The patients was emergently evaluated as this patient's presentation and case had a high probability of a clinically significant, sudden, or life threatening deterioration of this patient's initial critical presentation or condition which required my full and direct attention, intervention and personal management. Discharge Plan Discharge Patient Disposition: Placed in Observation Clinical Impression: Beta facundo toxicity, Syncope and collapse Condition: Stable Prescriptions: No Action tamsulosin 0.4 mg capsule 0.4 mg PO DAILY Qty: 90 3RF atorvastatin 20 mg tablet 20 mg PO DAILY atenolol 100 mg tablet 100 mg PO DAILY lisinopril-hydrochlorothiazide 20-25 mg tablet 1 tab PO BID Hold Instructions: hypotension isosorbide mononitrate 30 mg tablet extended release 24 hr 30 mg PO BID clopidogrel 75 mg tablet 75 mg PO DAILY nitrofurantoin monohyd/m-cryst 100 mg capsule 100 mg PO BID buspirone 5 mg tablet 5 mg PO BID ascorbic acid (vitamin C) [Vitamin C] 1,000 mg Tablet 1,000 mg PO DAILY venlafaxine 150 mg Tablet Extended Release 24 Hr 150 mg PO DAILY aspirin 81 mg Capsule 81 mg PO DAILY amlodipine 5 mg Tablet 5 mg PO DAILY Qty: 90 0RF nitroglycerin 0.4 mg Tablet, Sublingual 0.4 mg sublingual Q5M PRN (Reason: Chest Pain) Qty: 25 0RF pantoprazole 40 mg tablet,delayed release (DR/EC) 40 mg PO BID Referrals: Ijeoma Alexander FNP [Primary Care Provider] - Coding Level of Care Code ED Criminal Profiler for Moshe Lundberg
--- NOTE | 2023-10-05 12:34 | XRR_ITS ---
PROCEDURE INFORMATION: Exam: XR Chest Exam date and time: 10/05/2023 12:55 PM Age: 73 years old Clinical indication: Other: Syncope TECHNIQUE: Imaging protocol: Radiologic exam of the chest. Views: 1 view. COMPARISON: CR XR chest 1V portable [id number] 07/28/2023 2:56 PM FINDINGS: Lungs: Calcified granuloma in the right lower lobe. Pleural spaces: Unremarkable. No pleural effusion. No pneumothorax. Heart/Mediastinum: Unremarkable. No cardiomegaly. Bones/joints: Unremarkable. XR/XR chest 1V portable [id number] IMPRESSION: No acute findings.
--- NOTE | 2023-10-05 12:34 | CT_ITS ---
WS: [id number] CT HEAD TECHNIQUE: Noncontrast CT of the head obtained from the skullbase to the vertex. CLINICAL INFORMATION: syncope COMPARISON: MRI 2015 DLP: 1119.[address] scans at [facility] use at least one of these dose optimization techniques: automated e xposure control; mA and/or kV adjustment per patient size (includes targeted exams where dose is matc hed to clinical indication); or iterative reconstruction. FINDINGS: No evidence of intracranial hemorrhage or mass effect. Ventricular system and basal cisterns are hernandez nt. Mild small vessel changes with mild to moderate parenchymal volume loss. No extra-axial fluid col lections. No evidence of mass or mass effect. Intracranial vascular calcification. Paranasal sinuses and mastoid air cells are well aerated. .Normal visualized soft tissues. IMPRESSION: 1. No evidence of intracranial hemorrhage or mass effect. 2. Mild small vessel changes with mild to moderate parenchymal volume loss. 3. No acute intracranial findings.
--- NOTE | 2023-10-05 12:36 | ECG_ITS ---
[facility] Test Date: 2023-10-05 Pat Name: Edi Chawla Department: Room: Gender: Male Dairy Clerk: : 1950 Requested By: Dani Warner Order Number: [id number] Rex MD: Henry Cottrell M.D. Measurements Intervals [place] Rate: 46 P: 63 [place]: 152 QRS: 35 QRSD: 88 T: 65 QT: 498 QTc: 436 Interpretive Statements SINUS BRADYCARDIA Compared to ECG 07/28/2023 14:50:06 Sinus tachycardia no longer present T-wave abnormality no longer present Electronically Signed On 10-05-2023 12:47:14 DEVELOPMENT WRITER by Henry Cottrell M.D. [id number]
[2023-10-05 12:54] LABS: Basophils # 0.1 10^3/uL (0.0-0.1); Basophils % 0.7 %; Eosinophils # 0.1 10^3/uL (0.0-0.8); Eosinophils % 0.8 %; Hematocrit 38.9 % (37-53); Lymphocytes # 1.2 10^3/uL (0.8-4.8); Lymphocytes % 10.5 %; Mean Corpuscular HGB Conc 28.5 g/dL (30-55); Mean Corpuscular Hemoglobin 21.6 pg (27-33); Mean Corpuscular Volume 75.8 fl (82-101); Mean Platelet Volume 9.3 fL (7.4-10.4); Monocytes # 0.5 10^3/uL (0.2-0.9); Monocytes % 4.1 %; Neutrophils # 9.78 10^3/uL (1.8-7.7); Neutrophils % 83.4 %; Nucleated Red Blood Cells % 0 %; Platelet Count 301 10^3/cmm (157-399); Red Blood Count 5.13 10^6/uL (3.85-5.65); Red Cell Distribution Width 16.6 % (12.1-15.1); White Blood Count 11.72 10^3/uL (3.29-11.43)
[2023-10-05 13:02] LABS: INR 1.05 (0.8-1.2)
[2023-10-05 13:03] LABS: Partial Thromboplastin Time 24.3 SECONDS (23.9-36.7)
[2023-10-05 13:11] LABS: Troponin(5th) Baseline 14 ng/L (0-15)
[2023-10-05 13:27] LABS: NT Pro B Type Natriuretic Pept 1036 pg/mL (0-125); Procalcitonin 0.18 ng/mL (0-0.5)
[2023-10-05 13:38] LABS: Alanine Aminotransferase 15 U/L (0-41); Alkaline Phosphatase 101 U/L (40-130); Anion Gap 17.1 (5-19); Aspartate Amino Transferase 15 U/L (0-40); Blood Urea Nitrogen 20 mg/dL (8-23); Calcium 8.5 mg/dL (8.5-10.5); Carbon Dioxide 27 mmol/L (22-29); Chloride 94 mmol/L (98-107); Creatinine Clr Calc Pharmacy 39.5299; Globulin 2.8 g/dL (1.3-4.6); Glucose 267 mg/dL (65-115); Magnesium 2.4 mg/dL (1.7-2.3); Osmolality Calculated 290 mOsm/kg (285-295); Potassium 4.1 mmol/L (3.5-5.1); Sodium 134 mmol/L (136-145); Total Bilirubin 0.5 mg/dL (0.15-1.2); Total Protein 6.8 g/dL (6.6-8.7)
[2023-10-05] MEDS: sodium chloride 0.9% 1,000 ML 999 ML IV (13:39)
[2023-10-05] MEDS: glucagon 1 mg/mL KIT 1 mL IVP ×2 (13:42→15:40)
--- NOTE | 2023-10-05 14:36 | ECG_ITS ---
[facility] Test Date: 2023-10-05 Pat Name: Edi Chawla Department: Room: Gender: Male C++ Quant Developer: : 1950 Requested By: Dani Warner Order Number: [id number] Rex MD: Henry Cottrell M.D. Measurements Intervals [place] Rate: 52 P: 49 MO: 163 QRS: 23 QRSD: 88 T: 62 QT: 474 QTc: 445 Interpretive Statements SINUS BRADYCARDIA Compared to ECG 10/05/2023 12:39:18 No significant changes Electronically Signed On 10-05-2023 15:43:56 LIME PLANT OPERATOR by Henry Cottrell M.D. [id number]
[2023-10-05 14:49] LABS: Troponin 5 2HR 11.85 ng/L (0-15)
[2023-10-05 14:51] LABS: Troponin 5 2HR Delta -2.15 ABS# (0-10)
[2023-10-05] MEDS: calcium gluconate 0.1 gm/mL 10% SDV 10mL 1 GM IVP (15:40)
[2023-10-05 15:43] LABS: Glucose Point of Care 136 mg/dL (70-110)
--- NOTE | 2023-10-05 16:23 | P.HP_ITS ---
Providers/Chief Complaint 2 Primary Care Provider: SANTHOSH Lr Chief Complaint: syncope History of Present Illness Eid Chawla is a 73 year old male With a past medical history significant for hypertension, hyperlipidemia, and coronary artery disease status post PCI/LADY to LAD in 07/2023 who presents to the emergency department with recurrent syncope. Patient reports he was in his usual state of health until earlier today when he was in his shop. Patient syncopized shortly after standing from his chair. Family gave him glucose thinking he could be hypoglycemic. Patient again tried to get up and became symptomatic with recurrent syncope again. Patient endorses associated nausea, dizziness, weakness, and lightheadedness. He denies any chest pain, shortness of breath, fevers or chills. Denies any other new complaints. Denies other alleviating or aggravating factors. Upon presentation the emergency department, he was found to have soft blood pressure was bradycardic. Initial ECG with sinus bradycardia. He was treated with glucagon x 2, calcium, and IV boluses. Heart rate and blood pressure showed some improvement. Patient found to still be symptomatic with presyncope upon standing. Review of Systems 2 Narrative: A complete review of systems was obtained and is negative except as stated in HPI. Medications/Allergies Home Medications Medication Instructions Recorded Confirmed Last Taken Type atenolol 100 mg tablet 100 mg PO DAILY 02/22/20 10/05/23 10/05/23 History atorvastatin 20 mg tablet 20 mg PO DAILY 02/22/20 10/05/23 10/05/23 History lisinopril 20 1 tab PO BID 02/22/20 10/05/23 10/05/23 History mg-hydrochlorothiazide 25 mg tablet ascorbic acid (vitamin C) 1,000 mg 1,000 mg PO DAILY 03/20/22 10/05/23 10/05/23 History tablet (Vitamin C) aspirin 81 mg capsule 81 mg PO DAILY 03/20/22 10/05/23 10/05/23 History buspirone 5 mg tablet 5 mg PO BID 03/20/22 10/05/23 10/05/23 History venlafaxine 150 mg tablet,extended 150 mg PO DAILY 03/20/22 10/05/23 10/05/23 History release 24 hr tamsulosin 0.4 mg capsule 0.4 mg PO DAILY #90 caps 09/10/0810/05/23 10/05/23 Rx amlodipine 5 mg tablet 5 mg PO DAILY #90 tabs 07/10/23 10/05/23 10/05/23 Rx nitroglycerin 0.4 mg sublingual 0.4 mg sublingual Q5M PRN Chest 07/10/23 10/05/23 Unknown Rx tablet Pain #25 tabs pantoprazole 40 mg tablet,delayed 40 mg PO BID 07/28/23 10/05/23 10/05/23 History release clopidogrel 75 mg tablet 75 mg PO DAILY 10/05/23 10/05/23 10/05/23 History isosorbide mononitrate 30 mg 30 mg PO BID 10/05/23 10/05/23 10/05/23 History tablet,extended release 24 hr nitrofurantoin 100 mg PO BID 10/05/23 10/05/23 10/05/23 History monohydrate/macrocrystals 100 mg capsule Allergies Allergy/AdvReac Type Severity Reaction Status Date / Time celecoxib [From Celebrex] Allergy ADR-Hyperte Verified 10/05/23 12:39 nsion Penicillins Allergy ALGY-Swell Verified 10/05/23 12:39 Lip/Tongue/Throat PFSH Acute 2 PFSH: Medical History Unstable angina pectoris due to coronary arteriosclerosis Chest pain Stable angina Hyperglycemia Gross hematuria 2021: Cytology negative, positive culture (Staphylococcus) Atherosclerosis of [place] coronary artery without angina pectoris Testosterone deficiency BPH loc w urin obs/LUTS History of recurrent UTI (urinary tract infection) Hyperlipidemia Hypertension History of CVA (cerebrovascular accident) Surgical History History of right shoulder replacement History of ankle surgery History of bladder surgery Family History Father , at age 63 CAD (coronary artery disease) Diabetes Mother , at age 85 CAD (coronary artery disease) Social History Smoking and tobacco/nicotine status: former use of tobacco/nicotine (Chew tobacco) Alcohol intake: never Household members: spouse Marital status: Current occupational status: employed and retired Vitals/I&O/Wt Last Vital Signs Temp 97.8 F 10/05/23 12:34 Pulse 53 L 10/05/23 16:00 Resp 15 10/05/23 12:34 BP 106/64 10/05/23 16:00 Pulse Ox 99 10/05/23 16:00 O2 Del Method Room Air 10/05/23 15:30 Weight last 48 hrs Weight 105.687 kg Physical Exam 2 Narrative: General: Patient is awake and alert. Very pleasant. Head: Normocephalic. Atraumatic. EOM intact. Neck: No JVD. Cardiovascular: Bradycardic. No gallops. No murmurs. No peripheral edema. Lungs: Clear to auscultation, no use of accessory muscles, no crackles or wheezes. Skin: No jaundice. No rashes. Abdomen: Normal bowel sounds, abdomen soft and nontender. Genito Urinary: Genital exam not performed since complaints not related. Rectal: Rectal exam not performed since no symptoms indicated blood loss. Extremities: No cyanosis or clubbing. Musculoskeletal: No swollen or erythematous joints. Neurological: Moves all 4 extremities. No myoclonus. Data 10/05/23 12:47 10/05/23 12:47 A&P Assessment and plan (1) Beta facundo toxicity: (2) Hypertension: Qualifiers: Hypertension type: primary hypertension Qualified Code(s): I10 - Essential (primary) hypertension (3) Hyperlipidemia: Qualifiers: Hyperlipidemia type: mixed hyperlipidemia Qualified Code(s): E78.2 - Mixed hyperlipidemia (4) Acute kidney injury: (5) BPH loc w urin obs/LUTS: (6) Syncope and collapse: (7) History of recurrent UTI (urinary tract infection): (8) Atherosclerosis of [place] coronary artery without angina pectoris: Qualifiers: [place] vs. transplanted heart: [place] heart Qualified Code(s): I25.10 - Atherosclerotic heart disease of [place] coronary artery without angina pectoris (9) Atrial fibrillation, new onset: (10) Peripheral arterial occlusive disease: Plan Syncope and collapse Bradycardia with soft blood pressure -Suspect medication induced -EKG with sinus bradycardia; of note patient does have history of paroxysmal atrial fibrillation -Chest x-ray and CT head negative for acute findings -Hold hydrochlorothiazide 25 mg twice daily -Hold lisinopril 20 mg twice daily -Hold amlodipine 5 mg daily -Hold atenolol 100 mg daily -Start hydralazine IV as needed for elevated blood pressures -Telemetry monitoring -Strict I's and O's -Up with assistance only -Fall precautions -Neurochecks Acute kidney injury on chronic kidney disease of unknown stage -Admission creatinine 1.9, baseline creatinine ~1.3 -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 -Avoid nephrotoxins Coronary artery disease -Status post PCI with LADY to LAD in 07/2023 -Denies chest pain or shortness of breath -[place] within normal limits -Continue DAPT with aspirin and Plavix -Holding beta-facundo due to sinus bradycardia with syncope, consider lower dose alternative beta-facundo as patient improves -Holding nitrates due to soft blood pressure -Telemetry monitoring Abnormal urinalysis with suspected UTI -Urinalysis reviewed -Follow culture -Start Rocephin History of paroxysmal atrial fibrillation -Holding beta-facundo as noted above -Not on therapeutic anticoagulation -Cardiology follow-up LUTS/BPH -Continue on Flomax DVT prophylaxis: Heparin CODE STATUS: Full code Attestations 2 Medical Necessity Statement*: Patient presents with recurrent syncope, found to have bradycardia with soft blood pressure likely secondary to medication compounded by reduced renal clearance with expected hospitalization not to cross 2 midnights for titration of cardiac medications, serial labs, IV fluids, cultures, and supportive care. Coding Level of Care Code Acute Code for Chg Fwd Diagnoses Beta facundo toxicity Primary hypertension I10 Hypertension type: primary hypertension Mixed hyperlipidemia E78.2 Hyperlipidemia type: mixed hyperlipidemia Acute kidney injury N17.9 BPH loc w urin obs/LUTS N40.1 Syncope and collapse R55 History of recurrent UTI (urinary tract infection) Z87.440 Atherosclerosis of [place] coronary artery of [place] heart without angina pectoris I25.10 [place] vs. transplanted heart: [place] heart Atrial fibrillation, new onset I48.91 Peripheral arterial occlusive disease I77.9
[2023-10-05 16:47] LABS: Add Urine Microscopic? YES; Bilirubin Urine 1+ (Negative); Blood Urine 2+ (Negative); Glucose Urine UA Norm (Normal); Ketones Urine Negative (Negative); Leukocyte Esterase Urine 2+ (Negative); Nitrate Urine Negative (Negative); Protein Urine 1+ (Negative); RBC Urine 0-4 /hpf (0-2); Urine Appearance Cloudy (CLEAR); Urine Color Amber (Yellow); Urobilinogen Urine 1 mg/dL (Negative); WBC Urine TOO NUMEROUS TO CNT /hpf (0-5); pH Urine 5 (5-7)
[2023-10-05 16:48] LABS: Add Urine Culture? Yes; Bacteria Urine 2+ /hpf
[2023-10-05] MEDS: sodium chloride 0.9% 1,000 ML 100 ML IV (16:50)
--- NOTE | 2023-10-05 17:51 | PC.NURSE ---
Patient arrived by wheelchair from Emergency Room at 1715.
[2023-10-05] MEDS: heparin 5,000 unit/mL INJ 1 mL 5000 UNIT SUBCUT (18:11)
[2023-10-05] MEDS: BuSPIRONE 10 mg Tablet 5 MG PO (18:11)
[2023-10-05] MEDS: pantoprazole DR 40 mg Tablet PO (18:11)
[2023-10-05 19:09] LABS: Troponin 5 6HR 12.76 ng/L (0-15)
[2023-10-05 19:11] LABS: Troponin 5 6HR Delta -1.24 ng/L (0-12)
[2023-10-05] MEDS: ciprofloxacin 500 mg Tablet PO (21:44)
[2023-10-06] VITALS (9 sets, daily range): BP systolic 128–172; BP diastolic 71–82; PULSE 61–115; RESP 16–95; TEMP 36.3–37.4; O2SAT 93–97
[2023-10-06] MEDS: sodium chloride 0.9% 1,000 ML 100 ML IV (03:10)
[2023-10-06 05:57] LABS: Basophils % 0.5 %; Eosinophils # 0.5 10^3/uL (0.0-0.8); Eosinophils % 6.6 %; Hematocrit 33.8 % (37-53); Lymphocytes # 1.9 10^3/uL (0.8-4.8); Lymphocytes % 24.9 %; Mean Corpuscular HGB Conc 28.7 g/dL (30-55); Mean Corpuscular Hemoglobin 21.4 pg (27-33); Mean Corpuscular Volume 74.4 fl (82-101); Mean Platelet Volume 9.9 fL (7.4-10.4); Monocytes # 0.9 10^3/uL (0.2-0.9); Monocytes % 11.1 %; Neutrophils # 4.32 10^3/uL (1.8-7.7); Neutrophils % 56.6 %; Nucleated Red Blood Cells % 0 %; Platelet Count 246 10^3/cmm (157-399); Red Blood Count 4.54 10^6/uL (3.85-5.65); Red Cell Distribution Width 16.6 % (12.1-15.1); White Blood Count 7.63 10^3/uL (3.29-11.43)
[2023-10-06 06:22] LABS: Anion Gap 10.6 (5-19); Blood Urea Nitrogen 21 mg/dL (8-23); Calcium 8.3 mg/dL (8.5-10.5); Carbon Dioxide 29 mmol/L (22-29); Chloride 107 mmol/L (98-107); Creatinine Clr Calc Pharmacy 52.6379; Glucose 100 mg/dL (65-115); Magnesium 2.2 mg/dL (1.7-2.3); Osmolality Calculated 299 mOsm/kg (285-295); Phosphorus 3.2 mg/dL (2.5-4.5); Potassium 3.6 mmol/L (3.5-5.1); Sodium 143 mmol/L (136-145)
[2023-10-06] MEDS: heparin 5,000 unit/mL INJ 1 mL 5000 UNIT SUBCUT ×2 (06:29→17:00)
[2023-10-06] MEDS: BuSPIRONE 10 mg Tablet 5 MG PO ×2 (08:42→17:00)
[2023-10-06] MEDS: atorvastatin 40 mg Tablet PO (08:42)
[2023-10-06] MEDS: venlafaxine ER (24HR) 150 mg Capsule PO (08:42)
[2023-10-06] MEDS: pantoprazole DR 40 mg Tablet PO ×2 (08:42→17:01)
[2023-10-06] MEDS: clopidogrel 75 mg Tablet PO (08:42)
[2023-10-06] MEDS: aspirin 81 mg EC Tablet PO (08:42)
[2023-10-06] MEDS: tamsulosin 0.4 mg Capsule 0.400000000000000022 MG PO (08:43)
[2023-10-06] MEDS: ciprofloxacin 500 mg Tablet PO (09:20)
--- NOTE | 2023-10-06 09:48 | PC.CHAP ---
Pastoral Care Encounter/Spiritual Assessment Type of Contact [] Declined leather grader visit [] Patient/Family/Request visit [] Outpatient visit [] Follow-up visit [] Physician referral [] Code/Alert [x] Routine visit [] Staff referral [] Actively dying [] Patient sleeping [x] Family support [] [] Out of room [] Palliative care [] [] Receiving care in room [] Pre-surgical visit [] Trauma [] Long length of stay [] ICU visit [] Other: Relational/Emotional Strength [x] Patient feels connected with others/family/visitors/staff [] Distress [] Loneliness/isolation [] Abandonment Spirituality of Patient [x] Person of Felicitas [] Attends Bahai of their Felicitas [x] Believes in Prayer [] Reads Bible or Jehovah'S Witness materials [] There are Spiritual issues to be addressed Craft Demonstrator Interventions [x] Prayer [] Active listening [] Non-anxious presence [x] Spiritual/emotional support [] Crisis/trauma care [] Spiritual counseling [] Bereavement support [] Provided bereavement packet [] Provided Bible/devotional materials [] Provided toy/stuffed animal, coloring book to patient or family member [] Provided Communion [] Anointing/[place] [] Salvation [x] Completed spiritual assessment [] Other: Impact on Illness or Injury [] Angry [] Fearful [] Anxious [] Often cries [] Exhaustion [] Unable to work [] Unable to attend jewish [] Unable to walk/stand [] Unable to read [] Unable to drive [] Unable to eat/drink [] Unable to sleep [] Unable to be with family [] Patient intubated [] Other: Summary Time spent with patient 5 min
--- NOTE | 2023-10-06 10:12 | P.PN_ITS ---
Subjective 2 Subjective: He has no complaints. He denies f/c, dizziness, light headedness, GI or sxs, CP, palpitations, SOB. This evening, he went into Afib w/ RVR (HR of 112) w/ 1mm ST depression from V3 to V6 w/ QTc of 112 noted on EKG that I ordered. Metop tartrate 5mg IVP x 1 and full dose Lovenox were initiated. Vitals/I&O/Wt Last Vital Signs Temp 98.9 F 10/06/23 08:00 Pulse 65 10/06/23 08:00 Resp 17 10/06/23 08:00 BP 153/75 10/06/23 08:00 Pulse Ox 93 10/06/23 08:00 O2 Del Method Room Air 10/05/23 17:53 10/05/23 10/06/23 10/06/23 22:59 06:59 14:59 Intake Total 1240 / 1240 1000 / 2240 480 / 480 Output Total 1100 / 1100 Balance 1240 / 1240 -100 / 1140 480 / 480 Weight last 48 hrs Weight 101.831 kg Weight 105.687 kg Weight 105.687 kg Physical Exam 2 Const: GENERAL APPEARANCE: cooperative and comfortable O RIENTATION/CONSCIOUSNESS: Yes awake, Yes oriented to person and Yes oriented to place HENMT: COMMON NORMALS: normocephalic, atraumatic, external ears normal and Normal external nose present HEAD & SCALP: normocephalic and atraumatic F JUWAN & SINUS: normal facial exam NOSE: Normal external nose present E XTERNAL EAR: Yes external ears normal MOUTH: Normal oral and palatal mucosa present THROAT: posterior oropharynx normal Eye: COMMON NORMALS: Equal, round and reactive pupils present and conjunctivae normal CONJUNCTIVA: Yes conjunctivae normal PUPIL: Yes Equal, round and reactive pupils present EOM: No EOM abnormal Neck/C-Spine: COMMON NORMALS: Thyroid normal GENERAL: Yes normal visual inspection and Yes trachea midline THYROID: Thyroid normal CAROTIDS: No bruit CERVICAL SPINE: Yes cervical ROM normal Lymph: OTHER: No cervical or supraclavicular lymphadenopathy. Resp: OTHER: CTAB w/ no w/r/r Cardio: OTHER: RRR w/ no m/r/g/clicks GI: OTHER: BS+, nontender, nondistended, no rigidity, no guarding, no rebound tenderness, no organomegaly/ Extremity: NARRATIVE EXTREMITY EXAM: no clubbing, cyanosis, or pedal edema Neuro: SENSORIUM/ORIENTATION: Yes oriented to person and Yes oriented to place CRANIAL NERVES: Yes CN normal except as noted SPEECH: speech normal S ENSORY EXAM: No sensory level loss detected MOTOR EXAM: 5/5 motor strength present throughout Psych: COMMON NORMALS: Normal thought process present and speech normal A PPEARANCE: Yes grossly normal ATTITUDE: Yes calm and Yes engaged A CTIVITY/MOTOR BEHAVIOR: Yes appropriate eye contact SPEECH: Yes normal speech MOOD & AFFECT: Yes euthymic mood THOUGHT PROCESS: Normal thought process present THOUGHT CONTENT: Yes Normal thought content present A TTENTION/CONCENTRATION: Yes attention grossly intact MEMORY/COGNITION: Yes memory grossly intact Skin: COMMON NORMALS: no rashes or lesions noted GENERAL SKIN EXAM: no rashes or lesions noted Data 10/06/23 05:33 10/06/23 05:33 A&P Assessment and plan (1) Atrial fibrillation with RVR: (2) Syncope and collapse: (3) BPH loc w urin obs/LUTS: (4) History of recurrent UTI (urinary tract infection): (5) Hypertension: Qualifiers: Hypertension type: primary hypertension Qualified Code(s): I10 - Essential (primary) hypertension (6) Hyperlipidemia: Qualifiers: Hyperlipidemia type: mixed hyperlipidemia Qualified Code(s): E78.2 - Mixed hyperlipidemia (7) UTI (urinary tract infection): Qualifiers: Urinary tract infection type: acute cystitis Hematuria presence: w ithout hematuria Qualified Code(s): N30.00 - Acute cystitis without hematuria Plan Mr Chawla is a 73yo man w/ HTN, HLD, CAD s/p LADY to the LAD in 07/2023 who was brought to he ED on 10/05/2023 for two episodes of syncope. In the ED, he was bradycardic to 53 w/ a BP as low as 99/52. His labs were significant for an YVETTE w/ a Cr 1.9. His UA showed a UTI w/ His EKG showed sinus bradycardia w/ no ST changes and a QTc of 436. His head CT was negative. His CXR was negative. #Syncope: Multifactorial: UTI vs Microcytic anemia in the context BP medications - Continue to hold Lisinoril, Amlodipine, Atenolol and HCTz - TSH/free t4 wnl. #YVETTE on CKD: Continue IVF. Monitor renal fxn. #Complicated UTI - Likely due to his BPH - F/u UCx. On po Cipro switched to IV Cipro. #Sinus bradycardia #CAD s/p LADY to the LAD in 07/2023 for Unstable Angina #Paroxysmal Afib: #Afib w/ RVR: - F/u TRop T series. - Ordered a dose of 5mg IVP x 1 Metop tartrate. - Not on AC. F/u w/ Cardiology #HTN #HLD #Microcytic anemia: Iron studies show #Iron deficiency anemia. - F/u FOBT. #BPH w/ LUTS & a hx of TURP in 2009 - Followed b Urology - Continue Tamsulosin. DVT prophylaxis: Heparin CODE STATUS: Full code Attestations 2 Medical Necessity Statement*: Patient has YVETTE on CKD, a complicated UTI, and will require greater than 2 midnights stay for admission. Urine cx are pending. Coding Level of Care Code 59239 Diagnoses Atrial fibrillation with RVR I48.91 Syncope and collapse R55 BPH loc w urin obs/LUTS N40.1 History of recurrent UTI (urinary tract infection) Z87.440 Primary hypertension I10 Hypertension type: primary hypertension Mixed hyperlipidemia E78.2 Hyperlipidemia type: mixed hyperlipidemia Acute cystitis without hematuria N30.00 Urinary tract infection type: acute cystitis Hematuria presence: without hematuria
[2023-10-06 11:08] LABS: Free T4 Free Thyroxine 1.03 ng/dL (0.82-1.77)
[2023-10-06 11:14] LABS: Folate Level 16.7 ng/mL (4.5-32.2)
[2023-10-06 11:15] LABS: Ferritin 25 ng/mL (30-400); Iron 18 ug/dL (59-158); Percent Saturation 4.9 % (20-50); Thyroid Stimulating Hormone 1.39 uIU/mL (0.27-4.20); Total Iron Binding Capacity 363 mcg/dl; Unsaturated Iron Binding 345 ug/dL (112-347); Vitamin B12 319 pg/mL (232-1245)
[2023-10-06] MEDS: sodium chloride 0.9% 1,000 ML 75 ML IV (14:33)
[2023-10-06] MEDS: potassium chloride ER 20 mEq Tablet 40 MEQ PO (17:00)
[2023-10-06] MEDS: iron sucrose 200 MG in sodium chloride 0.9% (100 ml) 100 ML 220 MG IV (17:00)
--- NOTE | 2023-10-06 18:20 | ECG_ITS ---
[facility] Test Date: 2023-10-06 Pat Name: Edi Chawla Department: Room: 277 Gender: Male Vp Strategic Planning: : 1950 Requested By: Gladis March Order Number: [id number] Rex MD: Henry Cottrell M.D. Measurements Intervals [place] Rate: 112 P: 0 NH: 0 QRS: 19 QRSD: 82 T: 71 QT: 336 QTc: 459 Interpretive Statements ATRIAL FIBRILLATION WITH RAPID VENTRICULAR RESPONSE NONSPECIFIC ST & T-WAVE ABNORMALITY Compared to ECG 10/05/2023 14:41:34 T-wave abnormality now present Sinus bradycardia no longer present Electronically Signed On 10-07-2023 8:13:31 LEAN SENSEI by Henry Cottrell M.D. [id number] f
[2023-10-06] MEDS: metoprolol tartrate 1 mg/1 mL SDV 5 mL 5 MG IVP (18:30)
[2023-10-06 19:19] LABS: Troponin(5th) Baseline 12 ng/L (0-15)
[2023-10-06] MEDS: ciprofloxacin 400 MG/200 ML PREMIX 200 MG IV (20:46)
[2023-10-06 20:49] LABS: Troponin 5 2HR 11.88 ng/L (0-15)
[2023-10-06 20:51] LABS: Troponin 5 2HR Delta -0.12 ABS# (0-10)
[2023-10-07] VITALS (8 sets, daily range): BP systolic 128–185; BP diastolic 70–89; PULSE 58–87; RESP 14–18; TEMP 36.6–37; O2SAT 91–96
[2023-10-07 00:45] LABS: Troponin 5 6HR 21.56 ng/L (0-15); Troponin 5 6HR Delta 9.56 ng/L (0-12)
[2023-10-07] MEDS: sodium chloride 0.9% 1,000 ML 75 ML IV ×2 (03:55→19:42)
[2023-10-07] MEDS: clopidogrel 75 mg Tablet PO (08:49)
[2023-10-07] MEDS: tamsulosin 0.4 mg Capsule 0.400000000000000022 MG PO (08:49)
[2023-10-07] MEDS: pantoprazole DR 40 mg Tablet PO ×2 (08:49→17:13)
[2023-10-07] MEDS: aspirin 81 mg EC Tablet PO (08:49)
[2023-10-07] MEDS: venlafaxine ER (24HR) 150 mg Capsule PO (08:49)
[2023-10-07] MEDS: atorvastatin 40 mg Tablet PO (08:49)
[2023-10-07] MEDS: ciprofloxacin 400 MG/200 ML PREMIX 200 MG IV (08:51)
[2023-10-07] MEDS: BuSPIRONE 10 mg Tablet 5 MG PO ×2 (08:51→17:13)
--- NOTE | 2023-10-07 11:08 | P.PN_ITS ---
Subjective 2 Subjective: The patient states that yesterday when he went into [facility] with RVR, he did feel dizzy, lightheadedness, dyspnea, palpitations, and CP. Metoprolol helped decrease his heart rate, and he was started on his home dose of atenolol 100 mg daily yesterday. Today he denies any of the aforementioned symptoms including f/c, GI or sxs, CP, palpitations, SOB. His UCx today is growing gamma hemolytic strep concerning for Enterococcus. Final speciation and sensitivity is pending. Vitals/I&O/Wt Last Vital Signs Temp 98.2 F 10/07/23 08:00 Pulse 65 10/07/23 08:00 Resp 18 10/07/23 08:00 BP 185/89 10/07/23 08:00 Pulse Ox 94 10/07/23 08:00 O2 Del Method Room Air 10/07/23 08:00 10/06/23 10/07/23 10/07/23 22:59 06:59 14:59 Intake Total 910 / 2630 1000 / 3630 200 / 200 Output Total 3300 / 3300 1250 / 4550 Balance -2390 / -670 -250 / -920 200 / 200 Weight last 48 hrs Weight 102.467 kg Weight 101.831 kg Weight 105.687 kg Weight 105.687 kg Physical Exam 2 Const: GENERAL APPEARANCE: cooperative and comfortable O RIENTATION/CONSCIOUSNESS: Yes awake, Yes oriented to person and Yes oriented to place HENMT: COMMON NORMALS: normocephalic, atraumatic, external ears normal and Normal external nose present HEAD & SCALP: normocephalic and atraumatic F JUWAN & SINUS: normal facial exam NOSE: Normal external nose present E XTERNAL EAR: Yes external ears normal MOUTH: Normal oral and palatal mucosa present THROAT: posterior oropharynx normal Eye: COMMON NORMALS: Equal, round and reactive pupils present and conjunctivae normal CONJUNCTIVA: Yes conjunctivae normal PUPIL: Yes Equal, round and reactive pupils present EOM: No EOM abnormal Neck/C-Spine: COMMON NORMALS: Thyroid normal GENERAL: Yes normal visual inspection and Yes trachea midline THYROID: Thyroid normal CAROTIDS: No bruit CERVICAL SPINE: Yes cervical ROM normal Lymph: OTHER: No cervical or supraclavicular lymphadenopathy. Resp: OTHER: CTAB w/ no w/r/r Cardio: OTHER: RRR w/ no m/r/g/clicks GI: OTHER: BS+, nontender, nondistended, no rigidity, no guarding, no rebound tenderness, no organomegaly/ Extremity: NARRATIVE EXTREMITY EXAM: no clubbing, cyanosis, or pedal edema Neuro: SENSORIUM/ORIENTATION: Yes oriented to person and Yes oriented to place CRANIAL NERVES: Yes CN normal except as noted SPEECH: speech normal S ENSORY EXAM: No sensory level loss detected MOTOR EXAM: 5/5 motor strength present throughout Psych: COMMON NORMALS: Normal thought process present and speech normal A PPEARANCE: Yes grossly normal ATTITUDE: Yes calm and Yes engaged A CTIVITY/MOTOR BEHAVIOR: Yes appropriate eye contact SPEECH: Yes normal speech MOOD & AFFECT: Yes euthymic mood THOUGHT PROCESS: Normal thought process present THOUGHT CONTENT: Yes Normal thought content present A TTENTION/CONCENTRATION: Yes attention grossly intact MEMORY/COGNITION: Yes memory grossly intact Skin: COMMON NORMALS: no rashes or lesions noted GENERAL SKIN EXAM: no rashes or lesions noted Data 10/06/23 05:33 10/06/23 05:33 Micro: Microbiology 10/05/23 16:21 Urine Culture - Preliminary Urine,Clean Catch Strep species, gamma-hemolytic A&P Assessment and plan (1) Atrial fibrillation with RVR: (2) Syncope and collapse: (3) BPH loc w urin obs/LUTS: (4) History of recurrent UTI (urinary tract infection): (5) Hypertension: Qualifiers: Hypertension type: primary hypertension Qualified Code(s): I10 - Essential (primary) hypertension (6) Hyperlipidemia: Qualifiers: Hyperlipidemia type: mixed hyperlipidemia Qualified Code(s): E78.2 - Mixed hyperlipidemia (7) UTI (urinary tract infection): Qualifiers: Urinary tract infection type: acute cystitis Hematuria presence: w ithout hematuria Qualified Code(s): N30.00 - Acute cystitis without hematuria Plan Mr Chawla is a 73yo man w/ HTN, HLD, CAD s/p LADY to the LAD in 07/2023 who was brought to he ED on 10/05/2023 for two episodes of syncope. In the ED, he was bradycardic to 53 w/ a BP as low as 99/52. His labs were significant for an YVETTE w/ a Cr 1.9. His UA showed a UTI w/ His EKG showed sinus bradycardia w/ no ST changes and a QTc of 436. His head CT was negative. His CXR was negative. His UCx today is growing gamma hemolytic strep concerning for Enterococcus. Final speciation and sensitivity is pending. #Syncope: Multifactorial: UTI vs Microcytic anemia in the context BP medications - Continue to hold Lisinoril, Amlodipine, Atenolol and HCTz - TSH/free t4 wnl. #YVETTE on CKD: Continue IVF. Monitor renal fxn. #Complicated UTI - Likely due to his BPH - F/u UCx. On po Cipro switched to IV Cipro on 10/06. D/c'ed Cipro on 10/07 b/c UCx is possitive for gamma hemolytic strep. . #Sinus bradycardia #CAD s/p LADY to the LAD in 07/2023 for Unstable Angina #Paroxysmal Afib: #Afib w/ RVR: - Trop T series minimally elevated. CHADSVAsc is 3. - Continued home Atenolol. Started full dose lovenox. - Will hold on ECHO b/c he just had one within the last 2 months. - F/u w/ Cardiology as outpatient #HTN #HLD #Microcytic anemia: Iron studies show #Iron deficiency anemia. - F/u FOBT. - Started venofer 200mg daily on 10/06/2023. #BPH w/ LUTS & a hx of TURP in 2009 - Followed by Urology - Continue Tamsulosin. DVT prophylaxis: Heparin CODE STATUS: Full code Attestations 2 Medical Necessity Statement*: Remains hospitalized fro his YVETTE on CKD and complicated UTI, which required changing antibiotic based on early results. Coding Level of Care Code 64298 Diagnoses Atrial fibrillation with RVR I48.91 Syncope and collapse R55 BPH loc w urin obs/LUTS N40.1 History of recurrent UTI (urinary tract infection) Z87.440 Primary hypertension I10 Hypertension type: primary hypertension Mixed hyperlipidemia E78.2 Hyperlipidemia type: mixed hyperlipidemia Acute cystitis without hematuria N30.00 Urinary tract infection type: acute cystitis Hematuria presence: without hematuria
[2023-10-07] MEDS: vancomycin 2,000 MG/400 ML PIGGYBACK 200 MG IV (11:15)
[2023-10-07] MEDS: magnesium hydroxide 30 mL UDC PO (12:24)
[2023-10-07] MEDS: bisacodyl 5 mg Tablet 10 MG PO (12:24)
[2023-10-07] MEDS: nicotine 14 mg Patch 1 PATCH TRANSDERMA (12:25)
[2023-10-07 12:30] LABS: Basophils # 0.1 10^3/uL (0.0-0.1); Eosinophils # 0.3 10^3/uL (0.0-0.8); Lymphocytes # 1.6 10^3/uL (0.8-4.8); Lymphocytes % 26.2 %; Mean Corpuscular HGB Conc 28.4 g/dL (30-55); Mean Corpuscular Hemoglobin 21.6 pg (27-33); Mean Corpuscular Volume 76.1 fl (82-101); Mean Platelet Volume 9.5 fL (7.4-10.4); Monocytes # 0.6 10^3/uL (0.2-0.9); Neutrophils # 3.66 10^3/uL (1.8-7.7); Neutrophils % 59.2 %; Nucleated Red Blood Cells % 0 %; Platelet Count 216 10^3/cmm (157-399); Red Blood Count 4.86 10^6/uL (3.85-5.65); Red Cell Distribution Width 16.6 % (12.1-15.1); White Blood Count 6.19 10^3/uL (3.29-11.43)
[2023-10-07] MEDS: iron sucrose 200 MG in sodium chloride 0.9% (100 ml) 100 ML 220 MG IV (12:40)
[2023-10-07 12:47] LABS: Alanine Aminotransferase 16 U/L (0-41); Albumin Level 3.3 g/dL (3.5-5.2); Alkaline Phosphatase 85 U/L (40-130); Anion Gap 9.7 (5-19); Aspartate Amino Transferase 17 U/L (0-40); Blood Urea Nitrogen 15 mg/dL (8-23); Calcium 8.3 mg/dL (8.5-10.5); Carbon Dioxide 28 mmol/L (22-29); Chloride 105 mmol/L (98-107); Creatinine Clr Calc Pharmacy 73.9262; Globulin 2.7 g/dL (1.3-4.6); Glucose 127 mg/dL (65-115); Magnesium 1.8 mg/dL (1.7-2.3); Osmolality Calculated 290 mOsm/kg (285-295); Phosphorus 1.9 mg/dL (2.5-4.5); Potassium 3.7 mmol/L (3.5-5.1); Sodium 139 mmol/L (136-145); Total Bilirubin 0.2 mg/dL (0.15-1.2)
[2023-10-07] MEDS: enoxaparin 100 mg/mL Syringe SUBCUT (17:14)
[2023-10-08] VITALS (8 sets, daily range): BP systolic 150–176; BP diastolic 72–92; PULSE 56–70; RESP 15–17; TEMP 36.5–37.2; O2SAT 94–97; BMI 35.2
[2023-10-08 05:55] LABS: Basophils # 0.1 10^3/uL (0.0-0.1); Basophils % 1.2 %; Eosinophils # 0.4 10^3/uL (0.0-0.8); Eosinophils % 5.3 %; Hematocrit 37.2 % (37-53); Lymphocytes % 29.6 %; Mean Corpuscular Hemoglobin 21.4 pg (27-33); Mean Corpuscular Volume 76.4 fl (82-101); Mean Platelet Volume 9.7 fL (7.4-10.4); Monocytes # 0.7 10^3/uL (0.2-0.9); Neutrophils # 3.54 10^3/uL (1.8-7.7); Neutrophils % 52.5 %; Nucleated Red Blood Cells % 0 %; Platelet Count 252 10^3/cmm (157-399); Red Blood Count 4.87 10^6/uL (3.85-5.65); Red Cell Distribution Width 16.5 % (12.1-15.1); White Blood Count 6.75 10^3/uL (3.29-11.43)
[2023-10-08 06:18] LABS: Alanine Aminotransferase 14 U/L (0-41); Albumin Level 3.3 g/dL (3.5-5.2); Alkaline Phosphatase 84 U/L (40-130); Anion Gap 12.7 (5-19); Aspartate Amino Transferase 13 U/L (0-40); Blood Urea Nitrogen 10 mg/dL (8-23); Calcium 8.4 mg/dL (8.5-10.5); Carbon Dioxide 28 mmol/L (22-29); Chloride 107 mmol/L (98-107); Creatinine Clr Calc Pharmacy 81.9736; Globulin 2.8 g/dL (1.3-4.6); Glucose 98 mg/dL (65-115); Magnesium 2.1 mg/dL (1.7-2.3); Osmolality Calculated 297 mOsm/kg (285-295); Phosphorus 2.9 mg/dL (2.5-4.5); Potassium 3.7 mmol/L (3.5-5.1); Sodium 144 mmol/L (136-145); Total Bilirubin 0.2 mg/dL (0.15-1.2); Total Protein 6.1 g/dL (6.6-8.7)
[2023-10-08] MEDS: sodium chloride 0.9% 1,000 ML 75 ML IV (06:41)
[2023-10-08] MEDS: enoxaparin 100 mg/mL Syringe SUBCUT ×2 (06:41→17:21)
[2023-10-08] MEDS: venlafaxine ER (24HR) 150 mg Capsule PO (08:03)
[2023-10-08] MEDS: pantoprazole DR 40 mg Tablet PO ×2 (08:03→17:21)
[2023-10-08] MEDS: tamsulosin 0.4 mg Capsule 0.400000000000000022 MG PO (08:03)
[2023-10-08] MEDS: BuSPIRONE 10 mg Tablet 5 MG PO ×2 (08:03→17:21)
[2023-10-08] MEDS: nicotine 14 mg Patch 1 PATCH TRANSDERMA (08:03)
[2023-10-08] MEDS: aspirin 81 mg EC Tablet PO (08:03)
[2023-10-08] MEDS: clopidogrel 75 mg Tablet PO (08:04)
[2023-10-08] MEDS: atorvastatin 40 mg Tablet PO (08:04)
[2023-10-08] MEDS: atenolol 50 mg Tablet 100 MG PO (08:04)
--- NOTE | 2023-10-08 08:23 | ECG_ITS ---
[facility] Test Date: 2023-10-08 Pat Name: Edi Chawla Department: Room: 277 Gender: Male Seam Presser: : 1950 Requested By: Gladis March Order Number: [id number] Reading MD: Pat Ashby M.D. Measurements Intervals [place] Rate: 100 P: 150 CT: 148 QRS: 184 QRSD: 84 T: 130 QT: 339 QTc: 437 Interpretive Statements SINUS TACHYCARDIA ARM LEADS REVERSED [INVERTED P AND QRS IN I] ABNORMAL RHYTHM ECG Nonspecific ST change Compared to ECG 10/06/2023 18:09:24 Atrial fibrillation no longer present T-wave abnormality no longer present Electronically Signed On 10-08-2023 10:53:46 FORMING MACHINE ADJUSTER by Pat Ashby M.D. [email or web address]
--- NOTE | 2023-10-08 09:12 | PC.PHAR ---
pharmacy to dose Vancomycin, high trough requested Vanco Initial Dosing Patient Information Sex M M/F Last Name LAUREANO AGE 73 years First Name DEVANG Ht 67 inches : 1950 ABW 102.058 kg Location: [facility] IBW 66.1 kg If loading dose given: DW 80.4832 kg Loading DOSE: 2000 mg SCr 0.9 mg/dl This Dose = 24.8 mg/kg CrCl 67.3 ml/min 1st dose Cmax: 32.2 mcg/ml Vd 60.3624 liters Time elapsed: 12.0 hrs Ke 0.060 hrs-1 Serum Conc. = 15.6 mcg/ml t1/2 11 hrs Hrs until 20 mcg/ml 8.9 hrs Hrs until 15 mcg/ml 13.6 hours Hrs until 10 mcg/ml 20.4 hours Dose Tau (Freq) Levels expected Standard 1500 12 Cmax 45.5 Targets 18.64 17.2 Cpeak 42.8 25 to 40 mg/kg hours Cmin 24.9 10 to 20
[2023-10-08] MEDS: vancomycin 1,500 MG/300 ML PIGGYBACK 200 MG IV ×2 (11:18→22:05)
--- NOTE | 2023-10-08 12:38 | P.PN_ITS ---
Subjective 2 Subjective: The patient went into A-fib with RVR this morning. He endorses having palpitations, chest discomfort that felt like digestion while he was in rapid ventricular response. He denies dizziness, lightheadedness, shortness of breath, nausea, vomiting, fever, chills. He also denies sxs. He was given his morning dose of atenolol, which converted him to normal sinus rhythm. Furthermore, per discussion with the pharmacist, the pharmacy consult to place the order for the Vancomycin, was incorrect, so the pharmacist assisted in rectifying this information, so that the patient could have consistent dosing of vancomycin. The patient also told me yesterday and today, 10/08, that for the past 2 years, he has had episodes where he would have a right flank pain and resultant hematuria. He states that his last episode was in the fall 2022. He states that he has had a cystoscopy for this hematuria by a urologist. Chart review indicates that the patient did have a CT abdomen pelvis for the hematuria, and was noted to have a bladder diverticulum that was deemed a potential source of the hematuria. Vitals/I&O/Wt Last Vital Signs Temp 98.8 F 10/08/23 11:30 Pulse 56 L 10/08/23 11:30 Resp 16 10/08/23 11:30 BP 150/92 10/08/23 11:30 Pulse Ox 95 10/08/23 11:30 O2 Del Method Room Air 10/08/23 11:30 10/07/23 10/08/23 10/08/23 22:59 06:59 14:59 Intake Total 1240 / 2910 1423.75 / 4333.75 360 / 360 Output Total 1700 / 2100 850 / 2950 Balance -460 / 810 573.75 / 1383.75 360 / 360 Weight last 48 hrs Weight 102.058 kg Weight 102.467 kg Physical Exam 2 Const: GENERAL APPEARANCE: cooperative and comfortable O RIENTATION/CONSCIOUSNESS: Yes awake, Yes oriented to person and Yes oriented to place HENMT: COMMON NORMALS: normocephalic, atraumatic, external ears normal and Normal external nose present HEAD & SCALP: normocephalic and atraumatic F JUWAN & SINUS: normal facial exam NOSE: Normal external nose present E XTERNAL EAR: Yes external ears normal MOUTH: Normal oral and palatal mucosa present THROAT: posterior oropharynx normal Eye: COMMON NORMALS: Equal, round and reactive pupils present and conjunctivae normal CONJUNCTIVA: Yes conjunctivae normal PUPIL: Yes Equal, round and reactive pupils present EOM: No EOM abnormal Neck/C-Spine: COMMON NORMALS: Thyroid normal GENERAL: Yes normal visual inspection and Yes trachea midline THYROID: Thyroid normal CAROTIDS: No bruit CERVICAL SPINE: Yes cervical ROM normal Lymph: OTHER: No cervical or supraclavicular lymphadenopathy. Resp: OTHER: CTAB w/ no w/r/r Cardio: OTHER: RRR w/ no m/r/g/clicks GI: OTHER: BS+, nontender, nondistended, no rigidity, no guarding, no rebound tenderness, no organomegaly/ Extremity: NARRATIVE EXTREMITY EXAM: no clubbing, cyanosis, or pedal edema Neuro: SENSORIUM/ORIENTATION: Yes oriented to person and Yes oriented to place CRANIAL NERVES: Yes CN normal except as noted SPEECH: speech normal S ENSORY EXAM: No sensory level loss detected MOTOR EXAM: 5/5 motor strength present throughout Psych: COMMON NORMALS: Normal thought process present and speech normal A PPEARANCE: Yes grossly normal ATTITUDE: Yes calm and Yes engaged A CTIVITY/MOTOR BEHAVIOR: Yes appropriate eye contact SPEECH: Yes normal speech MOOD & AFFECT: Yes euthymic mood THOUGHT PROCESS: Normal thought process present THOUGHT CONTENT: Yes Normal thought content present A TTENTION/CONCENTRATION: Yes attention grossly intact MEMORY/COGNITION: Yes memory grossly intact Skin: COMMON NORMALS: no rashes or lesions noted GENERAL SKIN EXAM: no rashes or lesions noted Data 10/08/23 05:17 10/08/23 05:17 Micro: Microbiology 10/05/23 16:21 Urine Culture - Preliminary Urine,Clean Catch Strep species, gamma-hemolytic A&P Assessment and plan (1) Atrial fibrillation with RVR: (2) Syncope and collapse: (3) BPH loc w urin obs/LUTS: (4) History of recurrent UTI (urinary tract infection): (5) Hypertension: Qualifiers: Hypertension type: primary hypertension Qualified Code(s): I10 - Essential (primary) hypertension (6) Hyperlipidemia: Qualifiers: Hyperlipidemia type: mixed hyperlipidemia Qualified Code(s): E78.2 - Mixed hyperlipidemia (7) UTI (urinary tract infection): Qualifiers: Urinary tract infection type: acute cystitis Hematuria presence: w ithout hematuria Qualified Code(s): N30.00 - Acute cystitis without hematuria Plan Mr Chawla is a 73yo man w/ HTN, HLD, CAD s/p LADY to the LAD in 07/2023 who was brought to he ED on 10/05/2023 for two episodes of syncope. In the ED, he was bradycardic to 53 w/ a BP as low as 99/52. His labs were significant for an YVETTE w/ a Cr 1.9. His UA showed a UTI w/ His EKG showed sinus bradycardia w/ no ST changes and a QTc of 436. His head CT was negative. His CXR was negative. He was given IVF in the ED and admitted. His UCx on 10/07/2021 is growing gamma hemolytic strep concerning for Enterococcus. Final speciation and sensitivity is pending. #Syncope: Multifactorial: UTI vs Microcytic anemia in the context BP medications - Resumed Lisinoril, Amlodipine, Atenolol. Continue to hold HCTz - TSH/free t4 wnl. #YVETTE: IVF continued from the ED was d/c'ed on 10/08/2023. Monitor renal fxn. #Complicated UTI #hx of recurrent UTI - Likely due to his BPH - F/u UCx. On po Cipro switched to IV Cipro on 10/06. D/c'ed Cipro on 10/07 b/c UCx is positive for gamma hemolytic strep. Started Vancomycin on 10/08 w/ Pharmacy consult, but the consult was incorrect. So Pharmacy is now dosing on 10/08/2023 now that the consult is placed correctly. - Will get CT abd/pelvis w/o contrast #Sinus bradycardia #CAD s/p LADY to the LAD in 07/2023 for Unstable Angina #Paroxysmal Afib: #Afib w/ RVR: - Trop T series minimally elevated. CHADSVAsc is 3. - Continued home Atenolol. Started full dose lovenox. - Will hold on ECHO b/c he just had one within the last 2 months. - F/u w/ Cardiology as outpatient #HTN #HLD #Microcytic anemia: Iron studies show #Iron deficiency anemia. - Gave venofer 200mg x1 on 10/06/2023. Gave 100mg IV x 1 on 10/08. #BPH w/ LUTS & a hx of TURP in 2010 - Followed by Urology - Continue Tamsulosin. DVT prophylaxis: Heparin CODE STATUS: Full code Attestations 2 Medical Necessity Statement*: Patient remains hospitalized for his complicated UTI, Afib w/ RVR Coding Level of Care Code 41013 Diagnoses Atrial fibrillation with RVR I48.91 Syncope and collapse R55 BPH loc w urin obs/LUTS N40.1 History of recurrent UTI (urinary tract infection) Z87.440 Primary hypertension I10 Hypertension type: primary hypertension Mixed hyperlipidemia E78.2 Hyperlipidemia type: mixed hyperlipidemia Acute cystitis without hematuria N30.00 Urinary tract infection type: acute cystitis Hematuria presence: without hematuria
--- NOTE | 2023-10-08 12:38 | CT_ITS ---
WS: [id number] CT ABDOMEN PELVIS TECHNIQUE: Noncontrast CT of the abdomen and pelvis with coronal and sagittal reformatted images. CLINICAL INFORMATION: recurrent UTI COMPARISON: CT 03/20/2022 DLP: 1014.[address] scans at [facility] use at least one of these dose optimization techniques: automated e xposure control; mA and/or kV adjustment per patient size (includes targeted exams where dose is matc hed to clinical indication); or iterative reconstruction. FINDINGS: Calcified granulomas in the lung bases. Absent RIGHT kidney. Tiny LEFT adrenal adenoma. No hydronephrosis in the LEFT kidney. No obstructing LEFT renal or ureteral calculi. Bladder dome diverticulum is unchanged as previously described. Normal noncontrast liver. Normal GE junction. Splenic granulomas. Fatty atrophy of the pancreas. Norm al caliber abdominal aorta. Aortic calcification. Normal sigmoid colon. No evidence of high-grade sma ll or large bowel obstruction.Tiny fat-containing umbilical hernia. Enlarged nodular prostate measuring 5.1 x 4.5 cm. Findings suspicious for neoplasia. Recommend correl ation PSA. Thickening of the seminal vesicles bilaterally similar to previous. Additional adjacent ex ophytic prostate nodule Or adjacent enlarged lymph node is unchanged. Diffuse bladder wall thickening compatible with bladder outlet obstruction. IMPRESSION: 1. Absent RIGHT kidney. 2. No hydronephrosis in the LEFT kidney. No obstructing renal or ureteral calculi. 3. Markedly enlarged nodular prostate with enlarged seminal vesicles suspicious for neoplasia as pre viously described. Evidence of bladder outlet obstruction. Recommend correlation PSA. 4. Diffuse bladder wall thickening compatible with bladder outlet obstruction. 5. Bladder dome diverticulum as previously described. 6. No other significant changes compared to previous.
[2023-10-08] MEDS: amlodipine 5 mg Tablet PO (13:12)
[2023-10-08] MEDS: lisinopril 20 mg Tablet PO (13:12)
[2023-10-08] MEDS: iron sucrose 100 MG in sodium chloride 0.9% (100 ml) 100 ML 220 MG IV (14:01)
--- NOTE | 2023-10-08 17:50 | PC.NURSE ---
SHIFT SUMMARY Patient has done well today. He was in AFIB with RVR at the beginning of shift. After morning medications were given, patient's rate came down in the 80's. Patient tolerated Iron infusion without issues today. Good intake and output. Currently resting in bed with at bedside.
[2023-10-09] VITALS (7 sets, daily range): BP systolic 119–170; BP diastolic 66–81; PULSE 56–60; RESP 15–17; TEMP 36.3–36.9; O2SAT 93–97
[2023-10-09 05:27] LABS: Basophils # 0.1 10^3/uL (0.0-0.1); Basophils % 1.2 %; Eosinophils # 0.3 10^3/uL (0.0-0.8); Eosinophils % 4.2 %; Hematocrit 36.7 % (37-53); Lymphocytes # 2.2 10^3/uL (0.8-4.8); Lymphocytes % 30.3 %; Mean Corpuscular HGB Conc 29.2 g/dL (30-55); Mean Corpuscular Hemoglobin 21.8 pg (27-33); Mean Corpuscular Volume 74.7 fl (82-101); Mean Platelet Volume 8.7 fL (7.4-10.4); Monocytes # 0.8 10^3/uL (0.2-0.9); Monocytes % 10.5 %; Neutrophils # 3.89 10^3/uL (1.8-7.7); Neutrophils % 53.1 %; Nucleated Red Blood Cells % 0 %; Platelet Count 268 10^3/cmm (157-399); Red Blood Count 4.91 10^6/uL (3.85-5.65); Red Cell Distribution Width 16.4 % (12.1-15.1); White Blood Count 7.33 10^3/uL (3.29-11.43)
[2023-10-09 05:51] LABS: Alanine Aminotransferase 15 U/L (0-41); Albumin Level 3.3 g/dL (3.5-5.2); Alkaline Phosphatase 91 U/L (40-130); Anion Gap 12.9 (5-19); Aspartate Amino Transferase 17 U/L (0-40); Blood Urea Nitrogen 11 mg/dL (8-23); Calcium 8.7 mg/dL (8.5-10.5); Carbon Dioxide 28 mmol/L (22-29); Chloride 106 mmol/L (98-107); Globulin 2.8 g/dL (1.3-4.6); Glucose 90 mg/dL (65-115); Osmolality Calculated 295 mOsm/kg (285-295); Potassium 3.9 mmol/L (3.5-5.1); Sodium 143 mmol/L (136-145); Total Bilirubin 0.2 mg/dL (0.15-1.2); Total Protein 6.1 g/dL (6.6-8.7)
[2023-10-09] MEDS: enoxaparin 100 mg/mL Syringe SUBCUT (06:14)
--- NOTE | 2023-10-09 09:56 | PC.CHAP ---
Pastoral Care Encounter/Spiritual Assessment Type of Contact [] Declined tape controlled machine stitcher visit [] Patient/Family/Request visit [] Outpatient visit [] Follow-up visit [] Physician referral [] Code/Alert [x] Routine visit [] Staff referral [] Actively dying [] Patient sleeping [x] Family support [] [] Out of room [] Palliative care [] [] Receiving care in room [] Pre-surgical visit [] Trauma [] Long length of stay [] ICU visit [] Other: Relational/Emotional Strength [x] Patient feels connected with others/family/visitors/staff [] Distress [] Loneliness/isolation [] Abandonment Spirituality of Patient [x] Person of Felicitas [] Attends Roman Catholic of their Felicitas [x] Believes in Prayer [] Reads Bible or Mandaen materials [] There are Spiritual issues to be addressed Supervisor Clam Bed Interventions [x] Prayer [x] Active listening [] Non-anxious presence [x] Spiritual/emotional support [] Crisis/trauma care [] Spiritual counseling [] Bereavement support [] Provided bereavement packet [] Provided Bible/devotional materials [] Provided toy/stuffed animal, coloring book to patient or family member [] Provided Communion [] Anointing/[place] [] Salvation [x] Completed spiritual assessment [] Other: Impact on Illness or Injury [] Angry [] Fearful [] Anxious [] Often cries [] Exhaustion [] Unable to work [] Unable to attend zoroastrian [] Unable to walk/stand [] Unable to read [] Unable to drive [] Unable to eat/drink [] Unable to sleep [] Unable to be with family [] Patient intubated [] Other: Summary Time spent with patient 5 min
[2023-10-09] MEDS: amlodipine 5 mg Tablet PO (10:07)
[2023-10-09] MEDS: atenolol 50 mg Tablet 100 MG PO (10:08)
[2023-10-09] MEDS: aspirin 81 mg EC Tablet PO (10:08)
[2023-10-09] MEDS: BuSPIRONE 10 mg Tablet 5 MG PO (10:09)
[2023-10-09] MEDS: atorvastatin 40 mg Tablet PO (10:09)
[2023-10-09] MEDS: vancomycin 1,500 MG/300 ML PIGGYBACK 200 MG IV (10:11)
[2023-10-09] MEDS: clopidogrel 75 mg Tablet PO (10:16)
[2023-10-09] MEDS: isosorbide mononitrate ER 30 mg Tablet PO (10:16)
[2023-10-09] MEDS: nicotine 14 mg Patch 1 PATCH TRANSDERMA (10:17)
[2023-10-09] MEDS: lisinopril 20 mg Tablet PO (10:17)
[2023-10-09] MEDS: tamsulosin 0.4 mg Capsule 0.400000000000000022 MG PO (10:18)
[2023-10-09] MEDS: pantoprazole DR 40 mg Tablet PO (10:18)
[2023-10-09] MEDS: venlafaxine ER (24HR) 150 mg Capsule PO (10:19)
[2023-10-09] MEDS: linezolid premix 600 MG/300 ML PREMIX 300 MG IV (13:36)
--- NOTE | 2023-10-09 13:50 | USCV_ITS ---
Edi Chawla Age: 73 Gender: M : 1950 Exam Date: 10/09/2023 14:23 Ordering Phys: Gladis March MD Technologist: CT Exam Location: [facility] [place] Indication: stenosis Risk Factors: Previous Vascular Surgery: Right Brachial BP: / Left Brachial BP: / Right Left Velocity (cm/s) Spectral Plaque Velocity (cm/s) Spectral Plaque Syst/Diast Broadening Syst/Diast Broadening 78.90/ 14.10 Prox CCA 110.20/ 17.70 75.00/ 14.10 Mid CCA 87.10 / 22.90 45.20/ 12.80 Distal CCA 83.80 / 14.40 25.10/ 10.10 Prox ICA 61.10 / 21.50 29.40/ 9.70 Mid ICA 53.60 / 18.10 27.70/ 10.10 Distal ICA 64.60 / 24.30 108.00 ECA 92.40 0.60 ICA/CCA 0.80 Antegrade Vertebral Antegrade 34.10/ 13.20 cm/s 48.00/ 15.90 cm/s Tri Subclavian Tri 123.1 0 CONCLUSIONS Right ICA stenosis <50%. Mild atheromatous plaque right carotid bulb/ICA. Left ICA stenosis <50%. Mild atheromatous plaque left carotid bulb/ICA. Intimal thickening in the common carotid arteries and internal carotid arteries bilaterally. Normal antegrade Doppler flow noted in the right vertebral artery. Normal antegrade Doppler flow noted in the left vertebral artery. Caden Murillo MD (Electronically Signed) Final Date: 09 October 2023 16:28 S
--- NOTE | 2023-10-09 14:05 | P.DS_ITS ---
Discharge Providers Date of Admission: 10/07/23 12:31 Date of Discharge: October 09, 2023 Attending Provider at Admission: Govind Carballo MD Attending Provider at Discharge: Gladis March MD Primary Care Provider: SANTHOSH Lr Diagnoses at Discharge Discharge Diagnosis (1) Atrial fibrillation with RVR: Status: Resolved (2) Syncope and collapse: Status: Resolved (3) BPH loc w urin obs/LUTS: Status: Inactive (4) History of recurrent UTI (urinary tract infection): Status: Inactive (5) Hypertension: Status: Inactive Qualifiers: Hypertension type: primary hypertension Qualified Code(s): I10 - Essential (primary) hypertension (6) Hyperlipidemia: Status: Inactive Qualifiers: Hyperlipidemia type: mixed hyperlipidemia Qualified Code(s): E78.2 - Mixed hyperlipidemia (7) UTI (urinary tract infection): Status: Resolved Qualifiers: Hematuria presence: without hematuria Urinary tract infection type: acute cystitis Qualified Code(s): N30.00 - Acute cystitis without hematuria Reason for Visit Reason for Visit: syncope Hospital Course Hospital Course Mr Chawla is a 73yo man w/ HTN, HLD, CAD s/p LADY to the LAD in 07/2023, & with one Kidney, who was brought to he ED on 10/05/2023 for two episodes of syncope. In the ED, he was bradycardic to 53 w/ a BP as low as 99/52. His labs were significant for an YVETTE w/ a Cr 1.9. His UA showed a UTI w/ His EKG showed sinus bradycardia w/ no ST changes and a QTc of 436. His head CT was negative. His CXR was negative. He was given IVF in the ED and admitted. On admission, he was initiated on oral ciprofloxacin, that was switched to IV, but with his UCx on 10/07/2021 growing gamma hemolytic strep concerning for Enterococcus, he was empirically started on IV Vancomycin. A CT abd/pelvis was done given his recurrent UTI and his story of having had hematuria in the past, and the CT abd/pelvis showed an absent right kidney, no hydronephrosis, obstructing renal or ureteral calculi in the left kidney, but it did show a markedly enlarged nodular prostate with enlarged seminal vesicles suspicious for neoplasia. A PSA was obtained, that was mildly elevated. His YVETTE improved with IVF. His UCx speciated Enterococcus faecalis sensitive to ampicillin, but the patient was allergic to penicillins from a dose of penicillin that he took >50years prior, so he was discharged with oral linezolid p.o. twice daily. It was also recommended that he follow up with his Urologist on discharge. For his syncope, a Carotid ultrasound was done, showed less than 50% stenosis in bilateral Internal Carotid Arteries. While hospitalized, he had episodes of Afib w/ RVR, but it was deemed to be due to poor response to his initial empiric antibiotics. He was also given a total of approximately 500mg IV Venofer for his microcytic anemia. On discharge, his HCTZ was discontinued, especially given that he has only 1 kidney. It was also strongly recommended that he follow-up with a urologist. #Syncope #YVETTE #UTI #hx of recurrent UTI #Sinus bradycardia #CAD s/p LADY to the LAD in 07/2023 for Unstable Angina #Paroxysmal Afib: #Afib w/ RVR: - Trop T series minimally elevated. CHADSVAsc is 3. - Continued home Atenolol. Started full dose lovenox. - Will hold on ECHO b/c he just had one within the last 2 months. - F/u w/ Cardiology as outpatient #HTN #HLD #Microcytic anemia: Iron studies show #Iron deficiency anemia. - Gave venofer 200mg x1 on 10/06/2023. Gave 100mg IV x 1 on 10/08. Gave venofer 200mg x1 on 10/09/2023 #BPH w/ LUTS & a hx of TURP in 2009 #Nodular Prostate - F/u W/ Urology Physical Exam Const: GENERAL APPEARANCE: cooperative and comfortable ORIENTATION/CONSCIOUSNESS: Yes awake, Yes oriented to person and Yes oriented to place HENMT: COMMON NORMALS: normocephalic, atraumatic, external ears normal and Normal external nose present HEAD & SCALP: normocephalic and atraumatic FACE & SINUS: normal facial exam NOSE: Normal external nose present EXTERNAL EAR: Yes external ears normal MOUTH: Normal oral and palatal mucosa present THROAT: posterior oropharynx normal Eye: COMMON NORMALS: Equal, round and reactive pupils present and conjunctivae normal CONJUNCTIVA: Yes conjunctivae normal PUPIL: Yes Equal, round and reactive pupils present EOM: No EOM abnormal Neck/C-Spine: COMMON NORMALS: Thyroid normal GENERAL: Yes normal visual inspection and Yes trachea midline THYROID: Thyroid normal CAROTIDS: No bruit CERVICAL SPINE: Yes cervical ROM normal Lymph: OTHER: No cervical or supraclavicular lymphadenopathy. Resp: OTHER: CTAB w/ no w/r/r Cardio: OTHER: RRR w/ no m/r/g/clicks GI: OTHER: BS+, nontender, nondistended, no rigidity, no guarding, no rebound tenderness, no organomegaly/ Extremity: NARRATIVE EXTREMITY EXAM: no clubbing, cyanosis, or pedal edema Neuro: SENSORIUM/ORIENTATION: Yes oriented to person and Yes oriented to place CRANIAL NERVES: Yes CN normal except as noted SPEECH: speech normal SENSORY EXAM: No sensory level loss detected MOTOR EXAM: 5/5 motor strength present throughout Psych: COMMON NORMALS: Normal thought process present and speech normal APPEARANCE: Yes grossly normal ATTITUDE: Yes calm and Yes engaged ACTIVITY/MOTOR BEHAVIOR: Yes appropriate eye contact SPEECH: Yes normal speech MOOD & AFFECT: Yes euthymic mood THOUGHT PROCESS: Normal thought process present THOUGHT CONTENT: Yes Normal thought content present ATTENTION/CONCENTRATION: Yes attention grossly intact MEMORY/COGNITION: Yes memory grossly intact Skin: COMMON NORMALS: no rashes or lesions noted GENERAL SKIN EXAM: no rashes or lesions noted Discharge Data Studies Completed and Pending Completed Studies During Hospitalization Category Date Time Status CT abdomen pelvis wo con [id number] Routine Cat Scan 10/08/23 12:[address] head wo con* [id number] Stat Cat Scan 10/05/23 12:34 Completed XR chest 1V portable [id number] Stat Exams 10/05/23 12:34 Completed Pending at discharge Category Date Time Status CBC Auto Diff [Complete Blood Count w/Auto] AM LABS Lab 10/10/23 04:00 Ordered CMP [Comprehensive Metabolic Panel] AM LABS Lab 10/10/23 04:00 Ordered US carotid duplex bilateral [CV carotid duplex BI* Ultrasound 10/09/23 13:50 Ordered [id number]] Stat Radiology Impressions Chest X-Ray 10/05/23 12:34 IMPRESSION: No acute findings. Laboratory Results WBC 7.33 10^3/uL (3.29-11.43) 10/09/23 05:16 RBC 4.91 10^6/uL (3.85-5.65) 10/09/23 05:16 Hgb 10.70 g/dL (11.27-16.99) L 10/09/23 05:16 Hct 36.7 % (37-53) L 10/09/23 05:16 MCV 74.7 fl (82-101) L 10/09/23 05:16 MCH 21.8 pg (27-33) L 10/09/23 05:16 MCHC 29.2 g/dL (30-55) L 10/09/23 05:16 RDW 16.4 % (12.1-15.1) H 10/09/23 05:16 Plt Count 268 10^3/cmm (157-399) 10/09/23 05:16 MPV 8.7 fL (7.4-10.4) 10/09/23 05:16 Neut % (Auto) 53.1 % 10/09/23 05:16 Lymph % (Auto) 30.3 % 10/09/23 05:16 Hartley % (Auto) 10.5 % 10/09/23 05:16 Eos % (Auto) 4.2 % 10/09/23 05:16 Baso % (Auto) 1.2 % 10/09/23 05:16 Neut # (Auto) 3.89 10^3/uL (1.8-7.7) 10/09/23 05:16 Lymph # (Auto) 2.2 10^3/uL (0.8-4.8) 10/09/23 05:16 Hartley # (Auto) 0.8 10^3/uL (0.2-0.9) 10/09/23 05:16 Eos # (Auto) 0.3 10^3/uL (0.0-0.8) 10/09/23 05:16 Baso # (Auto) 0.1 10^3/uL (0.0-0.1) 10/09/23 05:16 Nucleated RBC % (auto) 0 % 10/09/23 05:16 Nucleated RBCs # 0.0 /100WBC 10/09/23 05:16 PT 14.00 SECONDS (12.1-14.9) 10/05/23 12:47 INR 1.05 (0.8-1.2) 10/05/23 12:47 APTT 24.3 SECONDS (23.9-36.7) 10/05/23 12:47 Sodium 143 mmol/L (136-145) 10/09/23 05:16 Potassium 3.9 mmol/L (3.5-5.1) 10/09/23 05:16 Chloride 106 mmol/L (98-107) 10/09/23 05:16 Carbon Dioxide 28 mmol/L (22-29) 10/09/23 05:16 Anion Gap 12.9 (5-19) 10/09/23 05:16 BUN 11 mg/dL (8-23) 10/09/23 05:16 Creatinine 1.1 mg/dL (0.7-1.2) 10/09/23 05:16 GFR Calculation Not Reportable 10/09/23 05:16 Glucose 90 mg/dL (65-115) 10/09/23 05:16 POC Glucose 136 mg/dL (70-110) H 10/05/23 15:36 Calculated Osmolality 295 mOsm/kg (285-295) 10/09/23 05:16 Calcium 8.7 mg/dL (8.5-10.5) 10/09/23 05:16 Phosphorus 2.9 mg/dL (2.5-4.5) D 10/08/23 05:17 Magnesium 2.1 mg/dL (1.7-2.3) 10/08/23 05:17 Iron 18 ug/dL (59-158) L 10/06/23 05:33 TIBC 363 mcg/dl 10/06/23 05:33 % Saturation 4.9 % (20-50) L 10/06/23 05:33 Unsat Iron Binding 345 ug/dL (112-347) 10/06/23 05:33 Ferritin 25 ng/mL (30-400) L 10/06/23 05:33 Total Bilirubin 0.2 mg/dL (0.15-1.2) 10/09/23 05:16 AST 17 U/L (0-40) 10/09/23 05:16 ALT 15 U/L (0-41) 10/09/23 05:16 Alkaline Phosphatase 91 U/L (40-130) 10/09/23 05:16 Troponin T Baseline 12 ng/L (0-15) 10/06/23 18:48 Troponin T 120 Minute 11.88 ng/L (0-15) 10/06/23 20:27 Delta Troponin T -0.12 ABS# (0-10) L 10/06/23 20:27 Troponin T Hi Sens 6Hr 21.56 ng/L (0-15) H 10/07/23 00:22 Troponin T Hi Sens 6Hr Delta 9.56 ng/L (0-12) 10/07/23 00:22 NT-Pro-B Natriuret Pep 1036 pg/mL (0-125) H 10/05/23 12:47 Total Protein 6.1 g/dL (6.6-8.7) L 10/09/23 05:16 Albumin 3.3 g/dL (3.5-5.2) L 10/09/23 05:16 Globulin 2.8 g/dL (1.3-4.6) 10/09/23 05:16 PSA Screen 4.20 ng/mL (0-4) H 10/09/23 05:16 Vitamin B12 319 pg/mL (232-1245) 10/06/23 05:33 Folate 16.7 ng/mL (4.5-32.2) 10/06/23 05:33 Procalcitonin 0.18 ng/mL (0-0.5) 10/05/23 12:47 TSH 1.39 uIU/mL (0.27-4.20) 10/06/23 05:33 Free T4 1.03 ng/dL (0.82-1.77) 10/06/23 05:33 Urine Color Karolina (Yellow) 10/05/23 16:21 Urine Appearance Cloudy (CLEAR) A 10/05/23 16:21 Urine pH 5 (5-7) 10/05/23 16:21 Ur Specific Broad Top 1.020 (1.005-1.030) 10/05/23 16:21 Urine Protein 1+ (Negative) H 10/05/23 16:21 Urine Glucose (UA) Norm (Normal) 10/05/23 16:21 Urine Ketones Negative (Negative) 10/05/23 16:21 Urine Blood 2+ (Negative) H 10/05/23 16:21 Urine Nitrate Negative (Negative) 10/05/23 16:21 Urine Bilirubin 1+ (Negative) H 10/05/23 16:21 Urine Urobilinogen 1 mg/dL (Negative) H 10/05/23 16:21 Ur Leukocyte Esterase 2+ (Negative) H 10/05/23 16:21 Urine RBC 0-4 /hpf (0-2) H 10/05/23 16:21 Urine WBC Too numerous to cnt /hpf (0-5) H 10/05/23 16:21 Ur Squamous Epith Cells None /hpf (0-5) 10/05/23 16:21 Amorphous Sediment Not Reportable 10/05/23 16:21 Urine Bacteria 2+ /hpf (NONE) H 10/05/23 16:21 Vitals Last Vital Signs Temp 97.4 F L 10/09/23 07:14 Pulse 57 L 10/09/23 11:14 Resp 17 10/09/23 11:14 BP 119/75 10/09/23 11:14 Pulse Ox 95 10/09/23 11:14 O2 Del Method Room Air 10/09/23 11:14 Discharge Plan Discharge Patient Disposition: Home Condition: Stable Prescriptions: New Eliquis 5 mg Tablet 5 mg PO BID@0900,2100 30 Days Qty: 60 0RF nicotine 14 mg/24 hr Patch 24 Hour 1 patch transdermal DAILY 30 Days Qty: 30 0RF lisinopril 20 mg Tablet 20 mg PO DAILY 30 Days Qty: 30 0RF linezolid 600 mg Tablet 600 mg PO Q12H 7 Days Qty: 13 0RF Xanax 0.5 mg tablet 0.5 mg PO TID PRN (Reason: anxiety) Qty: 20 0RF Continued tamsulosin 0.4 mg capsule 0.4 mg PO DAILY Qty: 90 3RF isosorbide mononitrate 30 mg tablet extended release 24 hr 30 mg PO BID clopidogrel 75 mg tablet 75 mg PO DAILY Tenormin 100 mg tablet 100 mg PO DAILY ascorbic acid (vitamin C) [Vitamin C] 1,000 mg Tablet 1,000 mg PO DAILY aspirin 81 mg Capsule 81 mg PO DAILY amlodipine 5 mg Tablet 5 mg PO DAILY Qty: 90 0RF nitroglycerin 0.4 mg Tablet, Sublingual 0.4 mg sublingual Q5M PRN (Reason: Chest Pain) Qty: 25 0RF pantoprazole 40 mg tablet,delayed release (DR/EC) 40 mg PO BID Changed atorvastatin 20 mg tablet 40 mg PO DAILY Qty: 60 0RF Held buspirone 5 mg tablet 5 mg PO BID Hold Instructions: Resume on 10/16/23. venlafaxine 150 mg Tablet Extended Release 24 Hr 150 mg PO DAILY Hold Instructions: Resume on 10/16/23. Discontinued atenolol 100 mg tablet 100 mg PO DAILY lisinopril-hydrochlorothiazide 20-25 mg tablet 1 tab PO BID Hold Instructions: hypotension nitrofurantoin monohyd/m-cryst 100 mg capsule 100 mg PO BID atorvastatin [Lipitor] 20 mg tablet 20 mg PO DAILY Discharge Orders: Discharge Order (Routine); Ordered 10/09/23 Ordered By: Gladis March Referrals: Ijeoma Alexander FNP [Primary Care Provider] - 10/14/23 9:00 am Pat Ashby MD [Physician] - 1 month (Hospital follow up for Syncope and Afib with RVR We have notified your physician's clinic of the need for a follow-up appointment to be scheduled. If you have not heard from them within the next 2 business days, please call them directly. ) Mustapha Demarco MD [Referring] - (Nodular prostate noted on CT scan We have notified your physician's clinic of the need for a follow-up appointment to be scheduled. If you have not heard from them within the next 2 business days, please call them directly. ) Discharge Diet: Low Salt Discharge Activity: Increase activity as tolerated Patient Instructions: Atrial Fibrillation, Lisinopril (By mouth), Alprazolam (By mouth), Nicotine (Absorbed through the skin), Linezolid (By mouth) (Zyvox), Apixaban (By mouth), Syncope, How to Stop Smoking (GEN), Urinary Tract Infection in Men (GEN), Cigarette Smoking and Your Health (GEN), Opioid Safety Discharge Attestations Time Spent in Discharge Care*: greater than 30 min Quality Metrics Clinical Quality Measures [ No reported AMI, CVA or VTE this stay] Coding Level of Care Code 28813 Diagnoses Atrial fibrillation with RVR I48.91 Syncope and collapse R55 BPH loc w urin obs/LUTS N40.1 History of recurrent UTI (urinary tract infection) Z87.440 Primary hypertension I10 Hypertension type: primary hypertension Mixed hyperlipidemia E78.2 Hyperlipidemia type: mixed hyperlipidemia Acute cystitis without hematuria N30.00 Hematuria presence: without hematuria Urinary tract infection type: acute cystitis
[2023-10-09] MEDS: iron sucrose 200 MG in sodium chloride 0.9% (100 ml) 100 ML 220 MG IV (14:58)
== END 2023-10-09 17:07 | disposition home or self-care (01) | DRG 690 ==
LOC: ER 16:17 → MEDSURG 16:45
PROVIDERS: Admitting Provider Internal Medicine; Emergency Provider Internal Medicine; PCP Nurse Practitioner Family; Visit Provider Internal Medicine
DX: N30.00 Acute cystitis without hematuria (principal); N17.9 Acute kidney failure, unspecified; Q60.0 Renal agenesis, unilateral; B95.4 Other streptococcus as the cause of diseases classified elsewhere; R00.1 Bradycardia, unspecified; R55 Syncope and collapse; D50.9 Iron deficiency anemia, unspecified; I25.10 Atherosclerotic heart disease of native coronary artery without angina pectoris; Z95.5 Presence of coronary angioplasty implant and graft; N40.3 Nodular prostate with lower urinary tract symptoms; N13.8 Other obstructive and reflux uropathy; E78.2 Mixed hyperlipidemia; I12.9 Hypertensive chronic kidney disease with stage 1 through stage 4 chronic kidney disease, or unspecified chronic kidney disease; N18.9 Chronic kidney disease, unspecified; Z87.891 Personal history of nicotine dependence; Z86.73 Personal history of transient ischemic attack (TIA), and cerebral infarction without residual deficits; Z87.440 Personal history of urinary (tract) infections; I48.0 Paroxysmal atrial fibrillation; I73.9 Peripheral vascular disease, unspecified; I65.23 Occlusion and stenosis of bilateral carotid arteries
CPT/HCPCS: 36415; 36416; 70450; 71045; 74176; 80048; 80053; 81001; 82607; 82728; 82746; 82962; 83540; 83550; 83735; 83880; 84100; 84145; 84439; 84443; 84484; 85025; 85610; 85730; 87077; 87086; 87186; 93005; 93880; 96365; 96372; 96375; 96376; 99285; G0103; G0378; J0612; J0744; J1610; J1644; J1650; J1756; J2020; J3370; J3372; J3490; J7030

== ENCOUNTER 2024-10-12 07:30 | Oncology outpatient (recurring) (ONCR) | payer MEDICARE, SELFPAY ==
[2024-10-11 15:35] LABS: Basophils # 0.2 10^3/uL (0.0-0.1); Basophils % 1.4 %; Eosinophils # 0.2 10^3/uL (0.0-0.8); Eosinophils % 1.6 %; Hematocrit 27.4 % (37-53); Lymphocytes # 2.5 10^3/uL (0.8-4.8); Lymphocytes % 23.6 %; Mean Corpuscular HGB Conc 27.4 g/dL (30-55); Mean Corpuscular Hemoglobin 18.9 pg (27-33); Mean Corpuscular Volume 69.2 fl (82-101); Mean Platelet Volume 9.3 fL (7.4-10.4); Monocytes # 1.1 10^3/uL (0.2-0.9); Monocytes % 10.7 %; Neutrophils # 6.43 10^3/uL (1.8-7.7); Neutrophils % 62.2 %; Nucleated Red Blood Cells % 0 %; Platelet Count 331 10^3/cmm (157-399); Red Blood Count 3.96 10^6/uL (3.85-5.65); Red Cell Distribution Width 15.7 % (12.1-15.1); White Blood Count 10.36 10^3/uL (3.29-11.43)
[2024-10-12] VITALS (11 sets, daily range): BP systolic 123–157; BP diastolic 70–82; PULSE 66–77; RESP 18; TEMP 36.1–36.9; O2SAT 94–100
[2024-10-12] MEDS: acetaminophen 325 mg Tablet 650 MG PO (08:02)
[2024-10-12] MEDS: diphenhydrAMINE 25 mg Capsule PO (08:02)
[2024-10-12] MEDS: FUROsemide 10 mg/mL SDV 4mL 40 MG IVP (11:07)
== END 2024-10-14 23:59 | disposition home or self-care (01) ==
PROVIDERS: PCP Nurse Practitioner Family; Visit Provider Nurse Practitioner Family
DX: Z53.9 Procedure and treatment not carried out, unspecified reason (principal); D64.9 Anemia, unspecified; Z79.899 Other long term (current) drug therapy
CPT/HCPCS: 36415; 36430; 85025; 86850; 86900; 86920; 96375; J1940; P9040

== ENCOUNTER → 2024-11-18 10:00 | Outpatient (BNVA) | payer MEDICARE, SELFPAY | PROVIDERS: PCP Nurse Practitioner Family; Visit Provider Orthopaedic Surgery | DX: M65.332 Trigger finger, left middle finger (principal); M65.342 Trigger finger, left ring finger; M65.352 Trigger finger, left little finger | CPT/HCPCS: 73130; 99204 ==